=== PATIENT | female | born 1945 | race Caucasian/White ===

== ENCOUNTER 2016-07-26 09:57 | Inpatient (IN) | payer OTHER ==
[2016-07-26] MEDS ORDERED: ACETAMINOPHEN 1000 MG/100 ML VIAL (NON FORMULARY) IVPB ONE (10:43)
--- NOTE | 2016-07-26 10:43 | PDOC ---
History of Present Illness - General History Source: Patient Exam Limitations: No Limitations - History of Present Illness Initial Comments: 07/26/16 11:23 The patient is a 70 year old female BIBA, with a significant past medical history of R forearm melanoma s/p graft placement, COPD, Dementia, GERD, Chronic constipation, CVA (2006), Lung[place] CA (2006), Breast CA (1998 & 2000), Depression, chronic constipation who presents to the emergency department with AMS. The patient reports fever and chills for the past 3 days. She denies chest pain, headache or dizziness. She denies nausea, vomit, diarrhea or constipation. She denies dysuria, frequency, urgency or hematuria. Allergies: amoxicillin trihydrate, potassium clavulanate, adhesive tape Past surgical history: Colon resection, Appendectomy, cholecystectomy, R partial lobectomy Social history: Former smoker PCP: Dr. Blandon <Laura Berry - Last Filed: 07/26/16 11:25> <Valeria Mtz - Last Filed: 07/26/16 17:04> - General Chief Complaint: Altered Mental Status Stated Complaint: FEVER Time Seen by Provider: 07/26/16 10:23 Past History <Laura Berry - Last Filed: 07/26/16 11:25> - Past Medical History Anemia: No Asthma: No Cancer: Yes (Lung 2006,Right Breast 1998 & 2000) Cardiac Disorders: Yes (Murmur,Cardiac Arythmia) CVA: Yes (2006) COPD: Yes CHF: No Dementia: No Diabetes: No GI Disorders: Yes (GERD) Disorders: No HTN: No Hypercholesterolemia: No Liver Disease: No Seizures: No Thyroid Disease: No - Surgical History Abdominal Surgery: Yes (Colon Resection) Appendectomy: Yes Cardiac Surgery: No Cholecystectomy: Yes Lung Surgery: Yes (Right. partial lobectomy) Neurologic Surgery: No Orthopedic Surgery: No - Psycho/Social/Smoking Cessation Hx Anxiety: Yes Suicidal Ideation: No Smoking Status: No Smoking History: Former smoker Have you smoked in the past 12 months: No Number of Cigarettes Smoked Daily: 0 If you are a former smoker, when did you quit?: 2011 Hx Alcohol Use: No Drug/Substance Use Hx: No Substance Use Type: None Hx Substance Use Treatment: No <Valeria Mtz - Last Filed: 07/26/16 17:04> - Past Medical History Allergies/Adverse Reactions: Allergies Allergy/AdvReac Type Severity Reaction Status Date / Time amoxicillin trihydrate Allergy Intermediate Rash Verified 07/26/16 11:31 [From Augmentin] potassium clavulanate Allergy Intermediate Rash Verified 07/26/16 11:31 [From Augmentin] adhesive tape Allergy Verified 07/26/16 11:31 Home Medications: Ambulatory Orders Mirtazapine [Remeron] 45 mg PO HS 10/30/11 Citalopram Hydrobromide [Celexa -] 20 mg PO DAILY #0 tablet 04/30/13 Diazepam [Valium] 5 mg PO TID 11/03/14 Divalproex [Depakote -] 750 mg PO HS 11/03/14 Duloxetine HCl [Cymbalta -] 20 mg PO BID 11/03/14 Omeprazole [Prilosec] 20 mg PO DAILY 11/03/14 Quetiapine Fumarate [Seroquel -] 50 mg PO AM 11/03/14 Buspirone HCl [Buspar] 5 mg PO TID 07/26/16 Quetiapine Fumarate [Seroquel] 100 mg PO HS 07/26/16 Rivastigmine Tartrate [Rivastigmine] 3 mg PO ASDIR 07/26/16 Review of Systems - Review of Systems Able to Perform ROS?: Yes Comments:: 07/26/16 11:23 GENERAL/CONSTITUTIONAL: + fever and chills. No weakness. HEAD, EYES, EARS, NOSE AND THROAT: No change in vision. No ear pain or discharge. No sore throat. CARDIOVASCULAR: No chest pain or shortness of breath. RESPIRATORY: No cough, wheezing, or hemoptysis. GASTROINTESTINAL: No nausea, vomiting, diarrhea or constipation. GENITOURINARY: No dysuria, frequency, or change in urination. MUSCULOSKELETAL: No joint or muscle swelling or pain. No neck or back pain. SKIN: No rash NEUROLOGIC: No headache, vertigo, loss of consciousness, or change in strength/ sensation. ENDOCRINE: No increased thirst. No abnormal weight change. HEMATOLOGIC/LYMPHATIC: No anemia, easy bleeding, or history of blood clots. ALLERGIC/IMMUNOLOGIC: No hives or skin allergy. <Laura Berry - Last Filed: 07/26/16 11:25> *Physical Exam - Physical Exam Comments: GENERAL: Awake, alert, confused, in no acute distress. +Mild tachypnea HEAD: No signs of trauma EYES: PERRLA, EOMI, sclera anicteric, conjunctiva clear ENT: Auricles normal inspection, hearing grossly normal, nares patent, oropharynx clear without exudates. Dry mucosa NECK: Normal ROM, supple, no lymphadenopathy, JVD, or masses LUNGS: Mild tachypnea. Dec breath sounds on R side. HEART: Regular rate and rhythm, normal S1 and S2, no murmurs, rubs or gallops ABDOMEN: Soft, nontender, normoactive bowel sounds. No guarding, no rebound. No masses EXTREMITIES: Normal range of motion, no edema. No clubbing or cyanosis. No cords, erythema, or tenderness NEUROLOGICAL: Cranial nerves II through XII grossly intact. Normal speech. Motor and sensation intact. SKIN: Warm, Dry, normal turgor, no rashes or lesions noted. <Valeria Mtz - Last Filed: 07/26/16 17:04> Heart Score/ECG Review #1 07/26/16 11:25 Sinus tachycardia with premature atrial complexes Nonspecific ST and T wave abnormality <Laura Berry - Last Filed: 07/26/16 11:25> ED Treatment Course - LABORATORY CBC & Chemistry Diagram: 07/26/16 10:45 07/26/16 10:45 <Laura Berry - Last Filed: 07/26/16 11:25> - LABORATORY CBC & Chemistry Diagram: 07/26/16 10:45 07/26/16 10:45 - RADIOLOGY Radiology Studies Ordered: Category Date Time Status CHEST X-RAY PORTABLE* [RAD] Stat Radiology 07/26/16 10:28 Ordered <Valeria Mtz - Last Filed: 07/26/16 17:04> Medical Decision Making - Medical Decision Making 07/26/16 11:01 Chest Xray Impression. No evidence of CHF pneumothorax, pulmonary consolidation. Reported By: Ruddy Kovacs MD 07/26/16 1100 <Laura Berry - Last Filed: 07/26/16 11:25> - Critical Care Time Total Critical Care Time (minutes): 35 Critical Care Statement: The care of this patient involved high complexity decision making to prevent further life threatening deterioration of the patient 's condition and/or to evalute & treat vital organ system(s) failure or risk of failure. - Medical Decision Making Pt presented with fever, AMS, stating she thought she was trembling from a panic attack. On exam she was febrile, hypotensive, altered. Also noted to be tachypneic. She has multiple medical comorbidities including more than one type of cancer, high risk for sepsis. She was treated with vanco and aztreonam due to penicillin allergy, cultures were sent, pending. She initially appeared critically ill, but with IV fluid resuscitation she improved, BP stabilized, and she was instead admitted to tele floor. D/w Dr. Rodriguez, Dr. Mehta, and hospitalist. <Valeria Mtz - Last Filed: 07/26/16 17:04> *DC/Admit/Observation/Transfer <Laura Berry - Last Filed: 07/26/16 11:25> - Discharge Dispostion Admit: Yes <Valeria Mtz - Last Filed: 07/26/16 17:04> Diagnosis at time of Disposition: Sepsis, Fever, Shortness of breath, Acute renal failure Rhabdomyolysis Qualifiers: Rhabdomyolysis type: non-traumatic Qualified Code(s): M62.82 - Rhabdomyolysis - Discharge Dispostion Condition at time of disposition: Guarded - Referrals
[2016-07-26] MEDS ORDERED: ACETAMINOPHEN INJECTION 100 ML IVPB ONE (10:58)
[2016-07-26 11:11] LABS: BASOPHIL 0.5 % (0-2.0); MCH 30.5 pg (25.7-33.7); MCHC 33.5 g/dl (32.0-36.0); MEAN CELL VOLUME 91.1 fl (80-96); MEAN PLT VOLUME 8.5 fl (7.5-11.1); NEUTROPHILS 81.8 % (42.8-82.8); PLATELET COUNT 291 K/MM3 (134-434); RDW 14.9 % (11.6-15.6); WHITE BLOOD COUNT 19.9 K/mm3 (4.0-10.0)
[2016-07-26 11:18] LABS: VENOUS BLOOD GAS HCO3 25.8 meq/L (19-25)
[2016-07-26 11:23] LABS: VENOUS PH 7.42 (7.32-7.42)
[2016-07-26 11:24] LABS: INR 1.2 (0.82-1.09); PROTHROMBIN TIME (PATIENT) 13.2 SEC (9.98-11.88)
[2016-07-26 11:27] LABS: ACTIVATED PTT 32.5 SECONDS (26.9-34.4)
[2016-07-26 11:35] LABS: ALBUMIN 3.7 g/dl (3.4-5.0); ANION GAP 12 (8-16); BILIRUBIN,TOTAL 0.8 mg/dL (0.2-1.0); CALCIUM 9.3 mg/dL (8.5-10.1); CO2 27 mmol/L (21-32); CREATININE 2.2 mg/dL (0.55-1.02); GLUCOSE,RANDOM 122 mg/dL (74-106); SGOT/AST 51 U/L (15-37); SGPT/ALT 27 U/L (12-78)
[2016-07-26 11:48] LABS: ALK PHOS 73 U/L (45-117); TOT PROT 8.6 g/dl (6.4-8.2); TROPONIN I 0.23 ng/ml (0.00-0.05)
[2016-07-26] MEDS ORDERED: SODIUM CHLORIDE 1,000 ML IV STA ×5 (12:21→15:49)
[2016-07-26] MEDS ORDERED: VANCOMYCIN 1,000 MG in DEXTROSE 5%-WATER - 250 ML IVPB ONE (12:24)
[2016-07-26 12:25] VITALS: BMI 28.1
[2016-07-26] MEDS ORDERED: AZTREONAM 1 GM in DEXTROSE 5%-WATER - 50 ML IVPB ONE (12:26)
[2016-07-26 12:39] LABS: COCKROFT - GAULT 31.1015
[2016-07-26] MEDS ORDERED: VANCOMYCIN 1 GRAM (PRE-DOCKED) 250 ML IVPB ONE (12:50)
--- NOTE | 2016-07-26 13:06 | EKG ---
Test Reason : Blood Pressure : / mmHG Vent. Rate : 138 BPM Atrial Rate : 138 BPM P-R Int : 140 ms QRS Dur : 058 ms QT Int : 356 ms P-R-T Axes : 068 051 073 degrees QTc Int : 539 ms SINUS TACHYCARDIA WITH PREMATURE ATRIAL COMPLEXES NONSPECIFIC ST AND T WAVE ABNORMALITY ABNORMAL ECG WHEN COMPARED WITH ECG OF 12-NOV-2014 10:09, PREMATURE ATRIAL COMPLEXES ARE NOW PRESENT VENT. RATE HAS INCREASED BY [address] NOW DEPRESSED IN INFERIOR LEADS ST NOW DEPRESSED IN ANTEROLATERAL LEADS NONSPECIFIC T WAVE ABNORMALITY NOW EVIDENT IN LATERAL LEADS Confirmed by ALEC HANSON MD ([id number]) on 07/26/2016 1:06:26 PM Referred By: Confirmed By:ALEC HANSON MD
--- NOTE | 2016-07-26 14:17 | CONSULT ---
Consult Consult Specialty:: PULMONRAY/CCM Referred by:: Dr. Mtz Reason for Consultation:: sepsis - History of Present Illness Chief Complaint: fever History of Present Illness: 70yo female with h/o COPD, constipation, h/o breast ca s/p resection/RT, Lung cancer s/p resection, h/o CVA, dementia who was admitted with altered mental status and fevers. She reports a fever x 2 days as well as some diarrhea although her last bowel movement was normal. Denies shortness of breath, cough or wheezing. No nausea or vomiting. No dysuria, hematuria or increased frequency. She does report history of UTIs. She lives alone with a home health aide, she is ambulatory, able to feed and dress herself. Denies any sick contacts or recent travel. 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 Cardio/Vascular: Yes: Other (cardiac arythmis COPD multiple basal and squamous cell carcinoma Bipolar disorder Right lung cancer 1996 right breast camcer 1998) Pulmonary: Yes: Cancer, COPD - Past Surgical History Past Surgical History: Yes: Appendectomy (child), Cholecystectomy ( salpingectomy due to ectopic ) - Alcohol/Substance Use Hx Alcohol Use: No - Smoking History Smoking history: Former smoker Have you smoked in the past 12 months: No Aproximately how many cigarettes per day: 0 If you are a former smoker, when did you quit?: 2011 - Social History ADL: Independent History of Recent Travel: No Home Medications - Allergies Allergies/Adverse Reactions: Allergies Allergy/AdvReac Type Severity Reaction Status Date / Time amoxicillin trihydrate Allergy Intermediate Rash Verified 07/26/16 11:31 [From Augmentin] potassium clavulanate Allergy Intermediate Rash Verified 07/26/16 11:31 [From Augmentin] adhesive tape Allergy Verified 07/26/16 11:31 - Home Medications Home Medications: Ambulatory Orders Mirtazapine [Remeron] 45 mg PO HS 10/30/11 Tiotropium Waite [Spiriva] 18 mcg IH DAILY 10/30/11 Benztropine Mesylate [Cogentin -] 1 mg PO HS #0 tablet 04/30/13 Buspirone HCl [Buspar] 5 mg PO DAILY #0 tablet 04/30/13 Citalopram Hydrobromide [Celexa -] 20 mg PO DAILY #0 tablet 04/30/13 Albuterol Sulfate Inhaler - [Ventolin HFA Inhaler -] 2 inh PO DAILY 11/03/14 Diazepam [Valium] 5 mg PO TID 11/03/14 Divalproex [Depakote -] 750 mg PO HS 11/03/14 Duloxetine HCl [Cymbalta -] 20 mg PO DAILY 11/03/14 Omeprazole [Prilosec] 20 mg PO DAILY 11/03/14 Quetiapine Fumarate [Seroquel -] 50 mg PO HS 11/03/14 Oxycodone HCl/Acetaminophen [Percocet 5-325 mg Tablet] 0.5 tab PO Q6H 11/11/14 Budesonide/Formeterol Fumarate [SYMBICORT 160/4.5mcg -] 1 puff IH BID #1 inhaler 11/17/14 Polyethylene Glycol 3350 [Miralax 119 gm Btl -] 17 gm PO DAILY bottle 11/17/14 Prednisone 10 mg PO ASDIR #24 tablet 11/17/14 Family Disease History - Family Disease History Family Disease History: CA: Father (CRC at 41), Sister (melanoma at 70) Review of Systems - Review of Systems Constitutional: reports: Fever, Weakness Eyes: denies: Recent Change in Vision HENT: denies: Nasal Congestion, Throat Pain Neck: denies: Stiffness, Tenderness Cardiovascular: denies: Chest Pain, Edema, Palpitations, Shortness of Breath Respiratory: denies: Cough, Hemoptysis, SOB, Wheezing Gastrointestinal: reports: Diarrhea. denies: Abdominal Pain, Nausea, Vomiting Genitourinary: denies: Dysuria, Hematuria Neurological: denies: Dizziness, Headache Endocrine: denies: Unexplained Weight Loss Physical Exam Vital Signs: Vital Signs Temperature 98.3 F 07/26/16 11:45 Pulse Rate 104 H 07/26/16 11:25 Respiratory Rate 22 07/26/16 11:25 Blood Pressure 104/59 07/26/16 11:25 O2 Sat by Pulse Oximetry (%) 96 07/26/16 11:25 Constitutional: Yes: Mild Distress (mildly tachypneic at rest) Eyes: Yes: Conjunctiva Clear, EOM Intact HENT: Yes: Atraumatic, Normocephalic Neck: Yes: Supple, Trachea Midline Cardiovascular: Yes: Regular Rate and Rhythm Respiratory: Yes: Diminished (distant breath sounds). No: Wheezes Gastrointestinal: Yes: Normal Bowel Sounds, Soft, Abdomen, Obese. No: Tenderness Edema: No Neurological: Yes: Alert, Oriented Labs: CBC, BMP 07/26/16 10:45 07/26/16 10:45 Imaging - Results Chest X-ray: Report Reviewed, Image Reviewed (no infiltrates) Problem List - Problems (1) Fever Code(s): R50.9 - FEVER, UNSPECIFIED (2) Sepsis Code(s): A41.9 - SEPSIS, UNSPECIFIED ORGANISM (3) Lactic acidosis Code(s): E87.2 - ACIDOSIS (4) COPD (chronic obstructive pulmonary disease) Code(s): J44.9 - CHRONIC OBSTRUCTIVE PULMONARY DISEASE, UNSPECIFIED (5) Rhabdomyolysis Code(s): M62.82 - RHABDOMYOLYSIS Assessment/Plan Fever/Sepsis without obvious source Lactic Acidosis Rhabdomyolysis Acute Kidney Injury +Troponins - r/o Demand Ischemia h/o Lung/Breast Ca/Melanoma - IV antibiotics - f/u blood cultures, send urinalysis, urine cultures, urinary antigens - consider CT A/P if no urinary source of infection - IVF - monitor urine output, creatinine - trend lactate, CPK - cycle cardiac enzymes - echocardiogram if troponins continue to rise - O2 as needed to keep SpO2 >90% - DVT prophylaxis - does not require ICU monitoring at this time, would monitor on telemetry - will follow or please call if any change in clinical status Thank you for this consult Elmo Rodriguez MD
[2016-07-26 14:44] LABS: URINE APPEARANCE CLOUDY; URINE BILIRUBIN NEGATIVE (NEGATIVE); URINE COLOR AMBER; URINE GLUCOSE (UA) NEGATIVE (NEGATIVE); URINE KETONE TRACE (NEGATIVE); URINE NITRITE NEGATIVE (NEGATIVE); URINE UROBILINOGEN NEGATIVE E.U./dl (0.2-1.0)
[2016-07-26 14:48] LABS: URINE BLOOD 2+ (NEGATIVE); URINE LEUK ESTERASE 2+ (NEGATIVE); URINE PROTEIN 2+ (NEGATIVE)
[2016-07-26 15:06] LABS: URINE HYALINE CAST 19 /lpf; URINE MUCUS MANY; URINE RBC 10 /hpf (0-3); URINE WBC 284 /hpf (3-5)
[2016-07-26] MEDS ORDERED: ACETAMINOPHEN 325 MG TABLET (FP) PO PRN (15:49)
--- NOTE | 2016-07-26 15:57 | HP ---
CHIEF COMPLAINT: Fever and Stomach pain PCP: Dr. Miller Blandon HISTORY OF PRESENT ILLNESS: Patient is a 70 year old female with a PMHx of COPD, Bipolar disorder, Anxiety/ Depression, breast cancer s/p surgery/radiation/tamoxifen, lung cancer with partial lobectomy, chronic constipation, R arm melanoma s/p wide excision lymphoscintogram who complains of suprapubic pain and that initially began 3 days ago when she as at home in her usual state of health. The pain was described as a nonradiating pressure like pain that only occurs when she uses the bathroom and lasts for an hour. Patient's sister reports patient had a fever >103.0 F, which prompted this hospital visit. Patient has a history of UTI 's in the past that was treated with antibiotics and experienced similar discomfort in the past. Otherwise, patient denies nausea, vomiting, chest pain, shortness of breath, dysuria, hematuria, frequency, urgency. ER course was notable for: (1) Sepsis Protocol (2) Vancomycin and Aztreonam, IV fluids given (3) CXR and EKG Recent Travel: Denies PAST MEDICAL HISTORY: COPD, Bipolar disorder, Anxiety/Depression, breast cancer s/p surgery/radiation/tamoxifen, lung cancer with partial lobectomy, chronic constipation, R arm melanoma s/p wide excision lymphoscintogram PAST SURGICAL HISTORY: Appendectomy, Cholecystectomy, Partial lobectomy, lymphoscintogram Social History: Smoking: Former smoker, quit 4 years ago. Started smoking at age 15 with 1.5 PPD Alcohol: Denies Drugs: Denies Family History: Non-contributory Allergies: amoxicillin trihydrate [From Augmentin] Allergy (Intermediate, Verified 07/26/16 11:31) Rash potassium clavulanate [From Augmentin] Allergy (Intermediate, Verified 07/26/16 11:31) Rash adhesive tape Allergy (Verified 07/26/16 11:31) HOME MEDICATIONS: Home Medications Medication Instructions Recorded Mirtazapine [Remeron] 45 mg PO HS 10/30/11 Citalopram Hydrobromide [Celexa -] 20 mg PO DAILY #0 tablet 04/30/13 Diazepam [Valium] 5 mg PO TID 11/03/14 Divalproex [Depakote -] 750 mg PO HS 11/03/14 Duloxetine HCl [Cymbalta -] 20 mg PO BID 11/03/14 Omeprazole [Prilosec] 20 mg PO DAILY 11/03/14 Quetiapine Fumarate [Seroquel -] 50 mg PO AM 11/03/14 Buspirone HCl [Buspar] 5 mg PO TID 07/26/16 Quetiapine Fumarate [Seroquel] 100 mg PO HS 07/26/16 Rivastigmine Tartrate 3 mg PO ASDIR 07/26/16 [Rivastigmine] REVIEW OF SYSTEMS CONSTITUTIONAL: fever Absent: chills, diaphoresis, generalized weakness, malaise, loss of appetite, weight change HEENT: Absent: rhinorrhea, nasal congestion, throat pain, throat swelling, difficulty swallowing, mouth swelling, ear pain, eye pain, visual changes CARDIOVASCULAR: Absent: chest pain, syncope, palpitations, irregular heart rate, lightheadedness , peripheral edema RESPIRATORY: Absent: cough, shortness of breath, dyspnea with exertion, orthopnea, wheezing, stridor, hemoptysis GASTROINTESTINAL: abdominal pain, constipation Absent: abdominal distension, nausea, vomiting, diarrhea, melena, hematochezia GENITOURINARY: Absent: dysuria, frequency, urgency, hesitancy, hematuria, flank pain, genital pain MUSCULOSKELETAL: Absent: myalgia, arthralgia, joint swelling, back pain, neck pain SKIN: Absent: rash, itching, pallor HEMATOLOGIC/IMMUNOLOGIC: Absent: easy bleeding, easy bruising, lymphadenopathy, frequent infections ENDOCRINE: Absent: unexplained weight gain, unexplained weight loss, heat intolerance, cold intolerance NEUROLOGIC: headache Absent: focal weakness or paresthesias, dizziness, unsteady gait, seizure, mental status changes, bladder or bowel incontinence PSYCHIATRIC: anxiety, depression Absent: suicidal or homicidal ideation, hallucinations. PHYSICAL EXAMINATION Vital Signs - 24 hr 07/26/16 15:25 Temperature 98.2 F Pulse Rate [ 66 Apical] Blood Pressure 94/47 [Left Arm] O2 Sat by Pulse 99 Oximetry (%) GENERAL: Awake, alert, and fully oriented, in no acute distress. HEAD: Normal with no signs of trauma. EYES: Sclera anicteric, conjunctiva clear. EARS, NOSE, THROAT: Oropharynx clear without exudates. Dry mucous membranes. NECK: Supple without lymphadenopathy, JVD. LUNGS: Breath sounds equal, clear to auscultation bilaterally. No wheezes, and no crackles. No accessory muscle use. HEART: Regular rate and rhythm, normal S1 and S2 without murmur, rub or gallop. ABDOMEN: Soft, Obese, moderate tenderness upon palpation of suprapubic region with distention, normoactive bowel sounds. MUSCULOSKELETAL: No CVA tenderness. UPPER EXTREMITIES: No peripheral edema. LOWER EXTREMITIES: No peripheral edema. NEUROLOGICAL: Normal speech. No facial droop PSYCHIATRIC: Flat affect. SKIN: Warm, dry, normal turgor, no rashes or lesions noted, normal capillary refill. Laboratory Results - last 24 hr 07/26/16 07/26/16 07/26/16 10:28 10:45 10:45 WBC 19.9 H RBC 5.13 D Hgb 15.7 H D Hct 46.7 H D MCV 91.1 MCHC 33.5 RDW 14.9 Plt Count 291 D MPV 8.5 D Neutrophils % 81.8 Lymphocytes % 10.1 Monocytes % 7.6 Eosinophils % 0.0 Basophils % 0.5 D INR 1.20 H PTT (Actin FS) 32.5 VBG pH POC VBG pCO2 POC VBG pO2 Mixed VBG HCO3 Sodium Potassium Chloride Carbon Dioxide Anion Gap BUN Creatinine Creat Clearance w eGFR Random Glucose Lactic Acid Calcium Total Bilirubin AST ALT Alkaline Phosphatase Creatine Kinase CK-MB (CK-2) Troponin I Total Protein Albumin Urine Color Melina Urine Appearance Cloudy Urine pH 5.0 Urine Protein 2+ H Urine Glucose (UA) Negative Urine Ketones Trace H Urine Blood 2+ H Urine Nitrite Negative Urine Bilirubin Negative Urine Urobilinogen Negative Ur Leukocyte Esterase 2+ H Urine RBC 10 Urine WBC 284 Ur Epithelial Cells Rare Hyaline Casts 19 Urine Mucus Many Blood Type Antibody Screen 07/26/16 07/26/16 07/26/16 10:45 10:45 10:45 WBC RBC Hgb Hct MCV MCHC RDW Plt Count MPV Neutrophils % Lymphocytes % Monocytes % Eosinophils % Basophils % INR PTT (Actin FS) VBG pH POC VBG pCO2 POC VBG pO2 Mixed VBG HCO3 Sodium 148 H Potassium 4.1 D Chloride 109 H D Carbon Dioxide 27 Anion Gap 12 BUN 39 H D Creatinine 2.2 H D Creat Clearance w eGFR 22.13 Random Glucose 122 H Lactic Acid 2.7 H* Calcium 9.3 Total Bilirubin 0.8 D AST 51 H D ALT 27 D Alkaline Phosphatase 73 D Creatine Kinase 2135 H D CK-MB (CK-2) < 1.000 Troponin I 0.23 H Total Protein 8.6 H D Albumin 3.7 D Urine Color Urine Appearance Urine pH Urine Protein Urine Glucose (UA) Urine Ketones Urine Blood Urine Nitrite Urine Bilirubin Urine Urobilinogen Ur Leukocyte Esterase Urine RBC Urine WBC Ur Epithelial Cells Hyaline Casts Urine Mucus Blood Type B POSITIVE Antibody Screen Negative ASSESSMENT/PLAN: Patient is a 70 year old female with a PMHx of COPD, Bipolar disorder, Anxiety/ Depression, breast cancer s/p surgery/radiation/tamoxifen, lung cancer with partial lobectomy, R arm melanoma s/p wide excision lymphoscintogram who presented for fever and abdominal pain. Patient was found to have Severe Sepsis with UTI, UTI, rhabdomyolysis. Patient admitted for further monitoring and management. Severe Sepsis Secondary to UTI- Acute -Tacycardia, tahcypnea, fever, Leuokocytosis, hypotension, lactic acidosis on initial presentation. -Initial Lactic acid 2.7. Now 1.1 -U/A revealed UTI with 2+ LE -3 Liters of IV NS given in ED with appropriate response. Another 2 Liters of IV NS ordered then begin maintenance IV NS @100mls/hr. -Aztreonam 1gm and Vancomycin 1gm given. Patient has allergy to pencillin and QTc prolongation -Blood cultures and urine cultures sent -Tylenol 650mg Q6H PRN -ID consult placed Acute Kidney Injury- Acute -Likely secondary to dehydration and sepsis -Creatinine 2.2 (Last one 1.1 in 2014) -Continue IV NS @100mls/hr -Continue to monitor BMP Rhabdomyolysis-Acute -Likely secondary to Psychiatric medications -CPK 2135 -Continue IV NS @100mls/hr -Will call Psychiatrist for alternative medications -Monitor CPK Elevated Troponins -Likely secondary to demand ischemia from GABBI and Sepsis -Initial level 0.23 -Repeat troponin tonight @1700. -Cardiology consult appreciated. Believe no cardiac origin -ECHO ordered Prolonged QTc -Likely secondary to Psychiatric medications -Will Avoid medications that cause increased QTc -Will call Psychiatrist for medication alternatives and last EKG reading Polycythemia -Secondary to dehydration and Sepsis -Will continue to monitor CBC COPD-Controlled -On no medication but will call pharmacy to confirm -Continue 02 PRN Anxiety/Depression/Bipolar -Will only continue Depakote 750mg HS and Seroquel 100mg HS and 50mg AM -Will hold all antipsychotics that have a side effect of prolonged QTc -Will call Psychiatrist on alternative medications History of Breast Cancer s/p surgery/radiation/tamoxifen, lung cancer with partial lobectomy -Currently on no therapy or treatment. F/E/N -5 liters IV NS given. Maintenance of IV NS @100mls/hr -Electrolytes wnl -Regular diet Prophylaxis -Heparin 5000 units sq BID Disposition -Responded well to fluid resuscitation. Will continue to monitor until resolution of sepsis Visit type - Emergency Visit Emergency Visit: Yes ED Registration Date: 07/26/16 Care time: The patient presented to the Emergency Department on the above date and was hospitalized for further evaluation of their emergent condition. - New Patient This patient is new to me today: Yes Date on this admission: 07/27/16 - Critical Care Critical Care patient: No
--- NOTE | 2016-07-26 16:27 | CON.CARD ---
Consult Consult Specialty:: Cardiology Referred by:: Dr Mtz Reason for Consultation:: elevated troponin - History of Present Illness Chief Complaint: changing mental status. History of Present Illness: 70f COPD, constipation, h/o breast ca s/p resection/RT, Lung cancer s/p resection, h/o CVA, dementia who was admitted with altered mental status and fevers. Found in ER with severe elevation of CPK and GABBI. Also elevated troponin but no chest pain or sob. Denies cardiac complaints. 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: Yes: CVA Cardio/Vascular: Yes: Other (cardiac arythmis COPD multiple basal and squamous cell carcinoma Bipolar disorder Right lung cancer 1996 right breast camcer 1998) Pulmonary: Yes: Cancer, COPD - Past Surgical History Past Surgical History: Yes: Appendectomy (child), Cholecystectomy ( salpingectomy due to ectopic ) - Alcohol/Substance Use Hx Alcohol Use: No - Smoking History Smoking history: Former smoker Have you smoked in the past 12 months: No Aproximately how many cigarettes per day: 0 If you are a former smoker, when did you quit?: 2012 - Social History ADL: Independent History of Recent Travel: No Home Medications - Allergies Allergies/Adverse Reactions: Allergies Allergy/AdvReac Type Severity Reaction Status Date / Time amoxicillin trihydrate Allergy Intermediate Rash Verified 07/26/16 11:31 [From Augmentin] potassium clavulanate Allergy Intermediate Rash Verified 07/26/16 11:31 [From Augmentin] adhesive tape Allergy Verified 07/26/16 11:31 - Home Medications Home Medications: Ambulatory Orders Mirtazapine [Remeron] 45 mg PO HS 10/30/11 Citalopram Hydrobromide [Celexa -] 20 mg PO DAILY #0 tablet 04/30/13 Diazepam [Valium] 5 mg PO TID 11/03/14 Divalproex [Depakote -] 750 mg PO HS 11/03/14 Duloxetine HCl [Cymbalta -] 20 mg PO BID 11/03/14 Omeprazole [Prilosec] 20 mg PO DAILY 11/03/14 Quetiapine Fumarate [Seroquel -] 50 mg PO AM 11/03/14 Buspirone HCl [Buspar] 5 mg PO TID 07/26/16 Quetiapine Fumarate [Seroquel] 100 mg PO HS 07/26/16 Rivastigmine Tartrate [Rivastigmine] 3 mg PO ASDIR 07/26/16 Family Disease History - Family Disease History Family Disease History: CA: Father (CRC at 41), Sister (melanoma at 70) Review of Systems Unable to obtain ROS, reason: delerium Vital Signs: Vital Signs Temperature 98.2 F 07/26/16 15:25 Pulse Rate 66 07/26/16 15:25 Respiratory Rate 22 07/26/16 11:25 Blood Pressure 94/47 07/26/16 15:25 O2 Sat by Pulse Oximetry (%) 99 07/26/16 15:25 Constitutional: Yes: No Distress, Calm Eyes: Yes: Conjunctiva Clear HENT: Yes: Atraumatic, Normocephalic Neck: Yes: Supple, Trachea Midline, Thyromegaly Gastrointestinal: Yes: Normal Bowel Sounds, Soft Cardiovascular: Yes: Regular Rate and Rhythm JVD: No Carotid Bruit: No PMI: Non-Displaced Heart Sounds: Yes: S1, S2 Edema: No Peripheral Pulses WNL: Yes - Other Data Labs, Other Data: INR, PTT INR 1.20 (0.82-1.09) H 07/26/16 10:45 Imaging - Results X-ray: Report Reviewed (WILLIS) EKG: Report Reviewed (stach, apcs, nssttw changes.) Problem List - Problems (1) Rhabdomyolysis Assessment/Plan: The elevated troponin is most likely non ischemic in pattern. Trend troponin and CPK. Renal evaluation. [facility] eval read and agree. Echocardiogram to assess LV function. Hold as many medications as possible, especially antipsychotics as some can contribute to this, but the underlying etiology is likely infection. No plans for ischemia workup. continue telemetry x 24 hours. Code(s): M62.82 - RHABDOMYOLYSIS Qualifiers: Rhabdomyolysis type: non-traumatic Qualified Code(s): M62.82 - Rhabdomyolysis
--- NOTE | 2016-07-26 16:58 | PN ---
Teaching Attending Note Name of Resident: Ewelina Salcido ATTENDING PHYSICIAN STATEMENT I saw and evaluated the patient. I reviewed the resident's note and discussed the case with the resident. I agree with the resident's findings and plan as documented. pt is a poor historian SUBJECTIVE:69yo F c/o fever and diaphoresis for a few days. assoc with urinary frequency. states no recent changes to medications. Denies CP, cough, SOB, N/V/C /D or hematuria. denies recent fall or trauma OBJECTIVE: Last Vital Signs Temp Pulse Resp BP Pulse Ox 98.2 F 66 22 94/47 99 07/26/16 15:25 07/26/16 15:25 07/26/16 11:25 07/26/16 15:25 07/26/16 15:25 General NAD, flat affect, monotone CV S1 S2 RRR no murmur/rub/gallop no chest wall tenderness Lungs CTA B/L no wheezing/rales/rhonchi abdomen soft suprapubic tenderness +BS. obese + R CVA tenderness Extremities no pedal edema ASSESSMENT AND PLAN: 70yo F with PMH melanoma, COPD, dementia, CVA, lung ca, breast ca s/p resection and Rtx, depression presented to the ER with AMS assoc with fever and chills 1. Severe sepsis due to UTI and possible pyleonephritis- Tele admission. was hypotensive on presentation but responding to IVF challenge. lactic acidosis resolved. received 2L NS in ER will give additional 2 L NS and then start @ 100cc/H. received aztreonam and vanco in the ER. will consult ID for aztreonam approval. has PCN allergy and unable to start levaquin due to prolonged Qtc. f/ u Cx. 2. GABBI- due to sepsis. avoid nephrotoxic agents. will trend for now. on IVF. avoid nephrotoxic agents. call PMD in AM for baseline Cr. 3, Rhabdomyolysis- CK 2135. possible due to psychiatric medications. monitor other electrolytes. IVF. monitor 4. Tropnin leak- likely due to sepsis. Trop 0.23 will trend. if trends up will consider echo. cardio consulted 5. polycythemia- likely dehydration. repeat levels in AM 6. Prolonged Qtc- 540 here. call psychiatrist for last reading. (last EKG here from 2014). will d/w him about possibility of titrating down medications and/or removal. will cont seroquel and depakote for now. hold other medications 7. malignancy- no active treatment at this time 8. DVT ppx- hep sq
[2016-07-26] MEDS ORDERED: QUEtiapine FUMARATE 50 MG TABLET ONE (23:24)
[2016-07-26] MEDS: HEPARIN NA (PORCINE) 5,000 UNITS/ML 1ML VIAL SQ SCH (23:26)
[2016-07-26] MEDS: QUEtiapine FUMARATE 100 MG TABLET (FP) PO SCH (23:27)
[2016-07-26] MEDS: AZTREONAM 1 GM in DEXTROSE 5%-WATER - 50 ML IVPB SCH (23:51)
[2016-07-26] MEDS: DIVALPROEX SODIUM 250 MG TABLET E.C. (FP) PO SCH (23:51)
[2016-07-26] MEDS: SODIUM CHLORIDE 1,000 ML IV SCH (23:51)
[2016-07-27] MEDS: QUEtiapine FUMARATE 50 MG TABLET PO SCH (06:38)
[2016-07-27 08:14] LABS: MCH 30.9 pg (25.7-33.7); MEAN CELL VOLUME 93.5 fl (80-96); MEAN PLT VOLUME 8.6 fl (7.5-11.1); PLATELET COUNT 137 K/MM3 (134-434); RDW 14.8 % (11.6-15.6); WHITE BLOOD COUNT 11.7 K/mm3 (4.0-10.0)
[2016-07-27 09:24] LABS: CALCIUM 7.5 mg/dL (8.5-10.1); COCKROFT - GAULT 62.2115; CREATININE 1.1 mg/dL (0.55-1.02)
[2016-07-27] MEDS ORDERED: FUROSEMIDE 40 MG/4 ML INJECTABLE VIAL ONE (10:06)
[2016-07-27] MEDS: AZTREONAM 1 GM in DEXTROSE 5%-WATER - 50 ML IVPB SCH (10:48)
[2016-07-27] MEDS: HEPARIN NA (PORCINE) 5,000 UNITS/ML 1ML VIAL SQ SCH ×2 (10:48→22:03)
--- NOTE | 2016-07-27 12:15 | PN ---
Progress Note (short form) - Note Progress Note: Drowsy but in NAD. No CP or SOB. No documented acute events overnight. Intake & Output 07/24/16 07/25/16 07/26/16 07/27/16 23:59 23:59 23:59 23:59 Intake Total 150 1000 Balance 150 1000 Weight 180 lb Last Vital Signs Temp Pulse Resp BP Pulse Ox 98.6 F 96 H 20 116/74 96 07/27/16 07:00 07/27/16 07:00 07/27/16 07:00 07/27/16 07:00 07/26/16 22:00 Active Medications Acetaminophen (Tylenol -) 650 mg PO Q6H PRN PRN Reason: FEVER OR PAIN Diazepam (Valium -) 5 mg PO TID [facility] Divalproex Sodium (Depakote -) 750 mg PO HS [facility] Last Admin: 07/26/16 23:51 Dose: 750 mg Heparin Sodium (Porcine) (Heparin -) 5,000 unit SQ BID [facility] Last Admin: 07/27/16 10:48 Dose: 5,000 unit Aztreonam 1 gm/ Dextrose 50 mls @ 100 mls/hr IVPB BID [facility] PRN Reason: Protocol Last Admin: 07/27/16 10:48 Dose: 100 mls/hr Sodium Chloride (Normal Saline -) 1,000 mls @ 100 mls/hr IV ASDIR [facility] Last Admin: 07/26/16 23:51 Dose: 100 mls/hr Quetiapine Fumarate (Seroquel -) 100 mg PO HS [facility] Last Admin: 07/26/16 23:27 Dose: 100 mg Quetiapine Fumarate (Seroquel -) 50 mg PO AM [facility] Last Admin: 07/27/16 06:38 Dose: 50 mg Constitutional: Yes: NAD Eyes: Yes: Conjunctiva Clear, EOM Intact HENT: Yes: Atraumatic, Normocephalic Neck: Yes: Supple, Trachea Midline Cardiovascular: Yes: Regular Rate and Rhythm Respiratory: Yes: Diminished at the bases, No: Wheezes Gastrointestinal: Yes: Normal Bowel Sounds, Soft, Abdomen, Obese. No: Tenderness Edema: No Neurological: Yes: Drowsy, Non-focal Labs: Laboratory Results - last 24 hr 07/26/16 07/26/16 07/26/16 10:28 10:45 10:45 WBC RBC Hgb Hct MCV MCHC RDW Plt Count MPV VBG pH POC VBG pCO2 POC VBG pO2 Mixed VBG HCO3 Sodium 148 H Potassium 4.1 D Chloride 109 H D Carbon Dioxide 27 Anion Gap 12 BUN 39 H D Creatinine 2.2 H D Creat Clearance w eGFR 22.13 Random Glucose 122 H Lactic Acid 2.7 H* Calcium 9.3 Total Bilirubin 0.8 D AST 51 H D ALT 27 D Alkaline Phosphatase 73 D Creatine Kinase 2135 H D CK-MB (CK-2) < 1.000 Troponin I 0.23 H Total Protein 8.6 H D Albumin 3.7 D Urine Color Melina Urine Appearance Cloudy Urine pH 5.0 Ur Specific [place] >= 1.030 H Urine Protein 2+ H Urine Glucose (UA) Negative Urine Ketones Trace H Urine Blood 2+ H Urine Nitrite Negative Urine Bilirubin Negative Urine Urobilinogen Negative Ur Leukocyte Esterase 2+ H Urine RBC 10 Urine WBC 284 Ur Epithelial Cells Rare Hyaline Casts 19 Urine Mucus Many Blood Type Antibody Screen 07/26/16 07/26/16 07/26/16 10:45 11:12 14:11 WBC RBC Hgb Hct MCV MCHC RDW Plt Count MPV VBG pH 7.42 POC VBG pCO2 40.8 POC VBG pO2 48.1 H Mixed VBG HCO3 25.8 H Sodium Potassium Chloride Carbon Dioxide Anion Gap BUN Creatinine Creat Clearance w eGFR Random Glucose Lactic Acid 1.1 Calcium Total Bilirubin AST ALT Alkaline Phosphatase Creatine Kinase CK-MB (CK-2) Troponin I Total Protein Albumin Urine Color Urine Appearance Urine pH Ur Specific [place] Urine Protein Urine Glucose (UA) Urine Ketones Urine Blood Urine Nitrite Urine Bilirubin Urine Urobilinogen Ur Leukocyte Esterase Urine RBC Urine WBC Ur Epithelial Cells Hyaline Casts Urine Mucus Blood Type B POSITIVE Antibody Screen Negative 07/26/16 07/27/16 07/27/16 17:48 05:48 05:48 WBC 11.7 H D RBC 3.50 L D Hgb 10.8 D Hct 32.7 D MCV 93.5 MCHC 33.0 RDW 14.8 Plt Count 137 D MPV 8.6 VBG pH POC VBG pCO2 POC VBG pO2 Mixed VBG HCO3 Sodium 149 H Potassium 3.9 Chloride 115 H Carbon Dioxide 26 Anion Gap 8 BUN 40 H Creatinine 1.1 H D Creat Clearance w eGFR Random Glucose 101 Lactic Acid Calcium 7.5 L Total Bilirubin AST ALT Alkaline Phosphatase Creatine Kinase CK-MB (CK-2) Troponin I 0.14 H Total Protein Albumin Urine Color Urine Appearance Urine pH Ur Specific [place] Urine Protein Urine Glucose (UA) Urine Ketones Urine Blood Urine Nitrite Urine Bilirubin Urine Urobilinogen Ur Leukocyte Esterase Urine RBC Urine WBC Ur Epithelial Cells Hyaline Casts Urine Mucus Blood Type Antibody Screen 07/27/16 05:48 WBC RBC Hgb Hct MCV MCHC RDW Plt Count MPV VBG pH POC VBG pCO2 POC VBG pO2 Mixed VBG HCO3 Sodium Potassium Chloride Carbon Dioxide Anion Gap BUN Creatinine Creat Clearance w eGFR Random Glucose Lactic Acid Calcium Total Bilirubin AST ALT Alkaline Phosphatase Creatine Kinase 1262 H D CK-MB (CK-2) 9.732 H Troponin I Total Protein Albumin Urine Color Urine Appearance Urine pH Ur Specific [place] Urine Protein Urine Glucose (UA) Urine Ketones Urine Blood Urine Nitrite Urine Bilirubin Urine Urobilinogen Ur Leukocyte Esterase Urine RBC Urine WBC Ur Epithelial Cells Hyaline Casts Urine Mucus Blood Type Antibody Screen Problem List - Problems (1) Fever Code(s): R50.9 - FEVER, UNSPECIFIED (2) Sepsis Code(s): A41.9 - SEPSIS, UNSPECIFIED ORGANISM (3) Lactic acidosis Code(s): E87.2 - ACIDOSIS (4) COPD (chronic obstructive pulmonary disease) Code(s): J44.9 - CHRONIC OBSTRUCTIVE PULMONARY DISEASE, UNSPECIFIED (5) Rhabdomyolysis Code(s): M62.82 - RHABDOMYOLYSIS Assessment/Plan Fever/Sepsis without obvious source Lactic Acidosis Rhabdomyolysis Acute Kidney Injury +Troponins - r/o Demand Ischemia h/o Lung/Breast Ca/Melanoma - IV antibiotics - IVF - O2 as needed to keep SpO2 >90% - DVT prophylaxis - Caution with multiple standing sedative agents Dr Aaron
--- NOTE | 2016-07-27 12:31 | EKG ---
Test Reason : Blood Pressure : / mmHG Vent. Rate : 090 BPM Atrial Rate : 090 BPM P-R Int : 140 ms QRS Dur : 062 ms QT Int : 354 ms P-R-T Axes : 058 066 054 degrees QTc Int : 433 ms SINUS RHYTHM WITH MARKED SINUS ARRHYTHMIA OTHERWISE NORMAL ECG WHEN COMPARED WITH ECG OF 26-JUL-2016 10:20, PREMATURE ATRIAL COMPLEXES ARE NO LONGER PRESENT VENT. RATE HAS DECREASED BY [address] NO LONGER DEPRESSED IN INFERIOR LEADS ST NO LONGER DEPRESSED IN ANTEROLATERAL LEADS Confirmed by KYAW PEOPLES MD ([id number]) on 07/27/2016 12:30:45 PM Referred By: CJ FLORES Confirmed By:KYAW PEOPLES MD
--- NOTE | 2016-07-27 12:41 | PN ---
Teaching Attending Note Name of Resident: Ewelina Salcido ATTENDING PHYSICIAN STATEMENT I saw and evaluated the patient. I reviewed the resident's note and discussed the case with the resident. I agree with the resident's findings and plan as documented. SUBJECTIVE:symptoms improved. denies CP, SOB,fever, chills, dysuria, urinary frequency or hematuria OBJECTIVE: Last Vital Signs Temp Pulse Resp BP Pulse Ox 98.6 F 96 H 20 116/74 96 07/27/16 07:00 07/27/16 07:00 07/27/16 07:00 07/27/16 07:00 07/26/16 22:00 General NAD, flat affect, monotone CV S1 S2 RRR no murmur/rub/gallop no chest wall tenderness Lungs CTA B/L no wheezing/rales/rhonchi abdomen soft suprapubic tenderness +BS. obese + R CVA tenderness Extremities no pedal edema ASSESSMENT AND PLAN: 70yo F with PMH melanoma, COPD, dementia, CVA, lung ca, breast ca s/p resection and Rtx, depression presented to the ER with AMS assoc with fever and chills 1. Severe sepsis due to UTI and possible pyleonephritis-afebrile. leukocytosis improving. no longer hypotensive and lactic acidosis resolved. on aztreonam day 2. ID on board. f/u Cx. 2. GABBI- due to sepsis. improved. avoid nephrotoxic agents. avoid nephrotoxic agents. call PMD in AM for baseline Cr. 3, Rhabdomyolysis- CK 2135 on admission now trending down possible due to psychiatric medications. monitor other electrolytes. IVF until CK below 1000. monitor 4. Tropnin leak- likely due to sepsis. Trop peaked at 0.23 echo pending, if normal can d/c front desk monitor. cardio consulted 5. polycythemia- likely dehydration. now resolved. 6. Prolonged Qtc- improved on repeat. will call psychiatrist to confirm home meds. concern for being in rhabdo on presentation which it may have contributed to and prolonged Qtc. will cont seroquel and depakote for now. hold other medications 7. malignancy- no active treatment at this time 8. DVT ppx- hep sq
[2016-07-27] MEDS: diazePAM 5 MG TABLET PO SCH ×2 (13:28→22:03)
[2016-07-27] MEDS ORDERED: PANTOPRAZOLE 20 MG TABLET (FP) PO SCH (13:45)
[2016-07-27] MEDS: RANITIDINE HCL 150 MG TABLET (FP) PO SCH (14:19)
--- NOTE | 2016-07-27 15:08 | PN ---
Progress Note, Physician Chief Complaint: no new complaints tele neg History of Present Illness: 70f COPD, constipation, h/o breast ca s/p resection/RT, Lung cancer s/p resection, h/o CVA, dementia who was admitted with altered mental status and fevers. Found in ER with severe elevation of CPK and GABBI. Also elevated troponin but no chest pain or sob. Denies cardiac complaints. Echo 2014 increased EF, min MR/TR Echo done results pending. - Current Medication List Current Medications: Active Medications Acetaminophen (Tylenol -) 650 mg PO Q6H PRN PRN Reason: FEVER OR PAIN Diazepam (Valium -) 5 mg PO TID [facility] Last Admin: 07/27/16 13:28 Dose: 5 mg Divalproex Sodium (Depakote -) 750 mg PO HS [facility] Last Admin: 07/26/16 23:51 Dose: 750 mg Heparin Sodium (Porcine) (Heparin -) 5,000 unit SQ BID [facility] Last Admin: 07/27/16 10:48 Dose: 5,000 unit Aztreonam 1 gm/ Dextrose 50 mls @ 100 mls/hr IVPB BID [facility] PRN Reason: Protocol Last Admin: 07/27/16 10:48 Dose: 100 mls/hr Sodium Chloride (Normal Saline -) 1,000 mls @ 100 mls/hr IV ASDIR [facility] Last Admin: 07/26/16 23:51 Dose: 100 mls/hr Quetiapine Fumarate (Seroquel -) 100 mg PO HS [facility] Last Admin: 07/26/16 23:27 Dose: 100 mg Quetiapine Fumarate (Seroquel -) 50 mg PO AM [facility] Last Admin: 07/27/16 06:38 Dose: 50 mg Ranitidine HCl (Zantac -) 150 mg PO DAILY [facility] Last Admin: 07/27/16 14:19 Dose: 150 mg - Objective Vital Signs: Vital Signs Temperature 98.6 F 07/27/16 07:00 Pulse Rate 96 H 07/27/16 07:00 Respiratory Rate 20 07/27/16 07:00 Blood Pressure 116/74 07/27/16 07:00 O2 Sat by Pulse Oximetry (%) 96 07/26/16 22:00 Constitutional: Yes: Well Nourished, No Distress Eyes: Yes: Conjunctiva Clear, EOM Intact HENT: Yes: Atraumatic, Normocephalic Neck: Yes: Supple, Trachea Midline Cardiovascular: Yes: Regular Rate and Rhythm Respiratory: Yes: CTA Bilaterally Gastrointestinal: Yes: Normal Bowel Sounds Extremities: Yes: WNL Edema: No Labs: CBC, BMP 07/27/16 05:48 07/27/16 05:48 INR, PTT INR 1.20 (0.82-1.09) H 07/26/16 10:45 Problem List - Problems (1) Rhabdomyolysis Assessment/Plan: The elevated troponin is most likely non ischemic in pattern. Trend troponin and CPK. Renal evaluation. [facility] eval read and agree. Echocardiogram to assess LV function. Hold as many medications as possible, especially antipsychotics as some can contribute to this, but the underlying etiology is likely infection. No plans for ischemia workup. Can dc telemetry if echo unremarkable. Code(s): M62.82 - RHABDOMYOLYSIS Qualifiers: Rhabdomyolysis type: non-traumatic Qualified Code(s): M62.82 - Rhabdomyolysis
--- NOTE | 2016-07-27 15:32 | PN ---
Progress Note (short form) - Note Progress Note: ID Consult dictated UTI/ Sepsis secondary to UTI Fever/ leukocytosis-improved Lactic acidosis Azotemia PCN allergy Await c/s Pending c/s, empiric ceftriaxone 2gm IVPB q24h
[2016-07-27] MEDS: CEFTRIAXONE 100 ML IVPB SCH (17:04)
[2016-07-27] MEDS: POLYETHYLENE GLYCOL 3350 119 GM BTL PO SCH (17:04)
[2016-07-27] MEDS: ACLIDINIUM BROMIDE 400 MCG/INH AERO.POWD IH SCH ×2 (17:04→22:03)
[2016-07-27] MEDS: SODIUM CHLORIDE 1,000 ML IV SCH (17:05)
--- NOTE | 2016-07-27 17:06 | CONS ---
DATE OF CONSULTATION: DATE OF DICTATION: 07/27/2016 INFECTIOUS DISEASE CONSULTATION HISTORY OF PRESENT ILLNESS: Patient is a 70-year-old female evaluated for urinary tract infection. The patient was admitted to the hospital on July 26, 2016, with complaints of fever and chills for 3 days. She was noted to be febrile, hypotensive, and confused in the emergency room with a markedly elevated white blood cell count. Urinalysis showed many white cells. She has a history of allergy to AMOXICILLIN. She was empirically treated with vancomycin and Azactam. The patient required aggressive IV fluid resuscitation with 2 L of normal saline. Her course was complicated by lactic acidosis, acute kidney injury, and rhabdomyolysis. At the present time, she is awake, alert. She is out of bed to chair. She complains of some dysuria and suprapubic discomfort. She denies any flank pain, no nausea/vomiting. She has tolerated the antibiotic therapy without adverse reaction. PAST MEDICAL HISTORY: Positive for mild dementia, right forearm melanoma, COPD, gastroesophageal reflux, stroke, lung cancer, breast cancer status post resection and radiation, depression. PAST SURGICAL HISTORY: Status post colon cancer, appendectomy, cholecystectomy. ALLERGIES: AMOXICILLIN. She reports developing a generalized rash approximately 10 years ago, no history of anaphylaxis. MEDICATION: Remeron, Celexa, valium, Depakote, Cymbalta, Prilosec, Seroquel, Buspar. SOCIAL HISTORY: Former smoker. SYSTEMS REVIEW: Neurologic: No loss of consciousness, seizure activity, or focal weakness. Cardiac: Negative chest pain or palpitations. Respiratory: Negative cough or sputum production. Gastrointestinal: Negative vomiting or diarrhea. Genitourinary: As per HPI. LABORATORY DATA: White count on admission 19.9, presently 11.7. Hemoglobin 32.7, platelet count 137. BUN 40, creatinine 1.1. Urinalysis 284 white cells. PHYSICAL EXAMINATION: General: She is awake and alert. She is out of bed to chair, in no acute distress. Vital signs: Temperature 98.6, T-max 103, blood pressure 116/74, pulse 96 regular, respirations 20 per minute. HEENT: Sclerae anicteric. Cardiovascular: Heart sounds S1, S2. Respiratory: Lungs clear. Abdomen: Soft. There is mild suprapubic tenderness to palpation. No flank tenderness. Extremities: Positive for edema. IMPRESSION: 1. Urinary tract infection/sepsis secondary to urinary tract infection. 2. Fever, leukocytosis, improved. 3. PENICILLIN allergy. 4. Lactic acidosis. 5. Azotemia. Pending cultures, empiric antibiotic coverage with ceftriaxone 2 g IV piggyback every 24 hours. Await culture results. Anticipate early switch to oral antibiotics next 24 to 48 hours. Will follow. Thank you for the kind referral. YVONNE BOURNE M.D. [id number]
--- NOTE | 2016-07-27 18:35 | PN ---
Physical Exam: SUBJECTIVE: Patient seen and examined by me at bedside. No overnight events noted. Patient reports feeling better today with improving abdominal pain. Otherwise, patient denies fever, chills, nausea, vomiting, diarrhea, constipation, headaches, dizziness. OBJECTIVE: Vital Signs Period Temp Pulse Resp BP Sys/Htach Pulse Ox Last 24 Hr 97.2 F-98.6 F 86-96 16-20 110-131/57-74 96-98 GENERAL: Awake, alert, and fully oriented, in no acute distress. LUNGS: Breath sounds equal, clear to auscultation bilaterally. No wheezes, and no crackles. No accessory muscle use. HEART: Regular rate and rhythm, normal S1 and S2 without murmur, rub or gallop. ABDOMEN: Soft, Obese, moderate tenderness upon palpation of suprapubic region with distention, normoactive bowel sounds. MUSCULOSKELETAL: Right CVA tenderness. LOWER EXTREMITIES: No peripheral edema. NEUROLOGICAL: Normal speech. No facial droop Laboratory Results - last 24 hr 07/26/16 07/27/16 07/27/16 17:48 05:48 05:48 WBC 11.7 H D RBC 3.50 L D Hgb 10.8 D Hct 32.7 D MCV 93.5 MCHC 33.0 RDW 14.8 Plt Count 137 D MPV 8.6 Sodium 149 H Potassium 3.9 Chloride 115 H Carbon Dioxide 26 Anion Gap 8 BUN 40 H Creatinine 1.1 H D Random Glucose 101 Calcium 7.5 L Creatine Kinase CK-MB (CK-2) Troponin I 0.14 H 07/27/16 05:48 WBC RBC Hgb Hct MCV MCHC RDW Plt Count MPV Sodium Potassium Chloride Carbon Dioxide Anion Gap BUN Creatinine Random Glucose Calcium Creatine Kinase 1262 H D CK-MB (CK-2) 9.732 H Troponin I Active Medications Generic Name Dose Route Start Last Admin Trade Name Freq PRN Reason Stop Dose Admin Acetaminophen 650 mg 07/26/16 15:49 Tylenol - PO Q6H PRN FEVER OR PAIN Aclidinium [place] 1 puff 07/27/16 16:30 07/27/16 17:04 Tudorza - IH 1 puff BID LEFTY Administration Diazepam 5 mg 07/27/16 14:00 07/27/16 13:28 Valium - PO 5 mg TID LEFTY Administration Divalproex Sodium 750 mg 07/26/16 22:00 07/26/16 23:51 Depakote - PO 750 mg HS LEFTY Administration Heparin Sodium (Porcine) 5,000 unit 07/26/16 22:00 07/27/16 10:48 Heparin - SQ 5,000 unit BID LEFTY Administration Sodium Chloride 1,000 mls @ 100 mls/hr 07/26/16 18:00 07/27/16 17:05 Normal Saline - IV Not Given ASDIR LEFTY Ceftriaxone Sodium 100 mls @ 200 mls/hr 07/27/16 15:30 07/27/16 17:04 Rocephin 2gm Ivpb (Pre-Docked) IVPB 200 mls/hr DAILY LEFTY Administration Polyethylene Glycol 17 gm 07/27/16 16:30 07/27/16 17:04 Miralax (For Daily Use) - PO Not Given DAILY LEFTY Quetiapine Fumarate 100 mg 07/26/16 22:00 07/26/16 23:27 Seroquel - PO 100 mg HS LEFTY Administration Quetiapine Fumarate 50 mg 07/27/16 07:00 07/27/16 06:38 Seroquel - PO 50 mg AM LEFTY Administration Ranitidine HCl 150 mg 07/27/16 13:45 07/27/16 14:19 Zantac - PO 150 mg DAILY LEFTY Administration CHEST X-RAY(07/26/16): No evidence of CHF, Pneumothorax, pleural effusions, atelectasis. ASSESSMENT/PLAN: Patient is a 70 year old female with a PMHx of COPD, Bipolar disorder, Anxiety/ Depression, breast cancer s/p surgery/radiation/tamoxifen, lung cancer with partial lobectomy, R arm melanoma s/p wide excision lymphoscintogram who presented for fever and abdominal pain. Patient was found to have Severe Sepsis with UTI, UTI, rhabdomyolysis. Patient admitted for further monitoring and management. Severe Sepsis Secondary to UTI- Resolving -U/A revealed UTI with 2+ LE -Lactic Acid resolved -Continue maintenance IV NS @100mls/hr. -Aztreonam 1gm given. Patient has allergy to penicillin and QTc prolongation -ID consulted and switched patient to Rocephin 2gm daily -Blood cultures NGTD -Urine cultures pending -Tylenol 650mg Q6H PRN Acute Kidney Injury- Improved -Likely secondary to dehydration and sepsis -Today creatinine 1.1 -Continue IV NS @100mls/hr -Continue to monitor BMP Rhabdomyolysis-Improving -Likely secondary to Psychiatric medications -CPK 1262 -Continue IV NS @100mls/hr -Tried calling Psychiatrist, Dr. Jorge for alternative medications. Left voicemail twice and awaiting call back -Monitor CPK Elevated Troponins- Improved -Likely secondary to demand ischemia from GABBI and Sepsis -Initial level 0.23, second level 0.14 -Cardiology consult appreciated. Believe no cardiac origin -ECHO shows no regional wall motion abnormalities. Prolonged QTc- Improved -Likely secondary to Psychiatric medications -Will Avoid medications that cause increased QTc -Repeat EKG showed QTc of 433 -Tried calling PsychiatristDr. Jorge for alternative medications. Left voicemail twice and awaiting call back Polycythemia-Improving -Secondary to dehydration and Sepsis -Will continue to monitor CBC COPD-Controlled -Confirmed Medication. Resuemd patient on Spiriva -Continue 02 PRN Anxiety/Depression/Bipolar- Chronic -Continue Depakote 750mg HS and Seroquel 100mg HS and 50mg AM -Continue Valium 5mg TID -Will hold all antipsychotics that have a side effect of prolonged QTc -Will call Psychiatrist on alternative medications Alzheimers Dementia- Chronic -Continue Rivastigmine 3mg daily History of Breast Cancer s/p surgery/radiation/tamoxifen, lung cancer with partial lobectomy -Currently on no therapy or treatment. F/E/N -Maintenance of IV NS @100mls/hr -Electrolytes wnl -Regular diet Prophylaxis -Heparin 5000 units sq BID Disposition -Responded well to fluid resuscitation. Will continue to monitor until resolution of sepsis. Awaiting urine cultures Visit type - Emergency Visit Emergency Visit: Yes ED Registration Date: 07/26/16 Care time: The patient presented to the Emergency Department on the above date and was hospitalized for further evaluation of their emergent condition. - New Patient This patient is new to me today: No - Critical Care Critical Care patient: No
[2016-07-27] MEDS ORDERED: RIVASTIGMINE TARTRATE 3 MG PO SCH (18:45)
[2016-07-27] MEDS ORDERED: QUEtiapine FUMARATE 50 MG TABLET ONE (21:57)
[2016-07-27] MEDS ORDERED: PT OWN MED DRAWER 7, Y5N ONE (21:58)
[2016-07-27] MEDS: QUEtiapine FUMARATE 100 MG TABLET (FP) PO SCH (22:02)
[2016-07-27] MEDS: DIVALPROEX SODIUM 250 MG TABLET E.C. (FP) PO SCH (22:03)
[2016-07-28] MEDS: diazePAM 5 MG TABLET PO SCH ×2 (06:07→14:11)
[2016-07-28] MEDS: QUEtiapine FUMARATE 50 MG TABLET PO SCH (06:07)
[2016-07-28 07:27] LABS: MCHC 33.4 g/dl (32.0-36.0); MEAN CELL VOLUME 92.9 fl (80-96); MEAN PLT VOLUME 8.6 fl (7.5-11.1); PLATELET COUNT 123 K/MM3 (134-434); RDW 14.4 % (11.6-15.6); WHITE BLOOD COUNT 7.4 K/mm3 (4.0-10.0)
[2016-07-28 07:48] LABS: ANION GAP 7 (8-16); CALCIUM 7.6 mg/dL (8.5-10.1); CO2 29 mmol/L (21-32); CREATININE 0.9 mg/dL (0.55-1.02); GLUCOSE,RANDOM 92 mg/dL (74-106)
--- NOTE | 2016-07-28 08:15 | PN ---
Physical Exam: SUBJECTIVE: Patient seen and examined by me at bedside. Patient states she feels anxious because she is used to taking her medications when she first wakes up but is receiving them at 10:00 am here. Still complains of suprapubic tenderness and abdominal distention but reports it has improved. Otherwise, patient denies fever, chills, nausea, vomiting, constipation, diarrhea, chest pain, palpitations, shortness of breath. OBJECTIVE: Vital Signs Period Temp Pulse Resp BP Sys/Hatch Pulse Ox Last 24 Hr 97.2 F-99.2 F 63-94 18-20 110-132/56-70 97 GENERAL: Awake, alert, and fully oriented, in no acute distress. LUNGS: Breath sounds equal, clear to auscultation bilaterally. No wheezes, and no crackles. No accessory muscle use. HEART: Regular rate and rhythm, normal S1 and S2 without murmur, rub or gallop. ABDOMEN: Soft, Obese, moderate tenderness upon palpation of suprapubic region with distention, normoactive bowel sounds. MUSCULOSKELETAL: Right CVA tenderness. LOWER EXTREMITIES: No peripheral edema. NEUROLOGICAL: Normal speech. No facial droop Laboratory Results - last 24 hr 07/27/16 07/27/16 07/28/16 05:48 05:48 05:35 WBC 7.4 D RBC 3.31 L Hgb 10.3 L Hct 30.7 L MCV 92.9 MCHC 33.4 RDW 14.4 Plt Count 123 L MPV 8.6 Sodium 149 H Potassium 3.9 Chloride 115 H Carbon Dioxide 26 Anion Gap 8 BUN 40 H Creatinine 1.1 H D Random Glucose 101 Calcium 7.5 L Creatine Kinase 1262 H D CK-MB (CK-2) 9.732 H 07/28/16 05:35 WBC RBC Hgb Hct MCV MCHC RDW Plt Count MPV Sodium 145 Potassium 4.6 Chloride 109 H Carbon Dioxide 29 Anion Gap 7 L BUN 24 H D Creatinine 0.9 Random Glucose 92 Calcium 7.6 L Creatine Kinase CK-MB (CK-2) Active Medications Generic Name Dose Route Start Last Admin Trade Name Freq PRN Reason Stop Dose Admin Acetaminophen 650 mg 07/26/16 15:49 Tylenol - PO Q6H PRN FEVER OR PAIN Aclidinium [place] 1 puff 07/27/16 16:30 07/27/16 22:03 Tudorza - IH 1 puff BID LEFTY Administration Diazepam 5 mg 07/27/16 14:00 07/28/16 06:07 Valium - PO 5 mg TID LEFTY Administration Divalproex Sodium 750 mg 07/26/16 22:00 07/27/16 22:03 Depakote - PO 750 mg HS LEFTY Administration Heparin Sodium (Porcine) 5,000 unit 07/26/16 22:00 07/27/16 22:03 Heparin - SQ 5,000 unit BID LEFTY Administration Sodium Chloride 1,000 mls @ 100 mls/hr 07/26/16 18:00 07/27/16 17:05 Normal Saline - IV Not Given ASDIR LEFTY Ceftriaxone Sodium 100 mls @ 200 mls/hr 07/27/16 15:30 07/27/16 17:04 Rocephin 2gm Ivpb (Pre-Docked) IVPB 200 mls/hr DAILY LEFTY Administration Non-Formulary Medication 3 mg 07/27/16 18:45 Rivastigmine Tartrate [Rivastigmine] PO ASDIR LEFTY Polyethylene Glycol 17 gm 07/27/16 16:30 07/27/16 17:04 Miralax (For Daily Use) - PO Not Given DAILY LEFTY Quetiapine Fumarate 100 mg 07/26/16 22:00 07/27/16 22:02 Seroquel - PO 100 mg HS LEFTY Administration Quetiapine Fumarate 50 mg 07/27/16 07:00 07/28/16 06:07 Seroquel - PO 50 mg AM LEFTY Administration Ranitidine HCl 150 mg 07/27/16 13:45 07/27/16 14:19 Zantac - PO 150 mg DAILY LEFTY Administration CHEST X-RAY(07/26/16): No evidence of CHF, Pneumothorax, pleural effusions, atelectasis. ASSESSMENT/PLAN: Patient is a 70 year old female with a PMHx of COPD, Bipolar disorder, Anxiety/ Depression, breast cancer s/p surgery/radiation/tamoxifen, lung cancer with partial lobectomy, R arm melanoma s/p wide excision lymphoscintogram who presented for fever and abdominal pain. Patient was found to have Severe Sepsis with UTI, GABBI, and rhabdomyolysis. Patient admitted for further monitoring and management. Severe Sepsis Secondary to UTI- Resolving -U/A revealed UTI with 2+ LE -Continue maintenance IV NS @100mls/hr. -Continue Rocephin 2gm daily -Blood cultures NGTD -Urine cultures pending -Tylenol 650mg Q6H PRN Acute Kidney Injury- Resolved -Likely secondary to dehydration and sepsis -Today creatinine 0.9 -Continue IV NS @100mls/hr -Continue to monitor BMP Rhabdomyolysis-Improving -Likely secondary to Psychiatric medications -Continue IV NS @100mls/hr -Tried calling PsychiatristDr. Jorge for alternative medications again today, no call back -Monitor CPK Elevated Troponins-Resolved -Likely secondary to demand ischemia from GABBI and Sepsis -Cardiology consult appreciated. Believe no cardiac origin -ECHO shows no regional wall motion abnormalities. Prolonged QTc- Resolved -Likely secondary to Psychiatric medications -Will Avoid medications that cause increased QTc -Repeat EKG showed QTc of 433 -Tried calling PsychiatristDr. Jorge for alternative medications, no call back Polycythemia-Resolved -Secondary to dehydration and Sepsis -Will continue to monitor CBC COPD-Controlled -Continue [place] 1 Puff daily -Continue 02 PRN Anxiety/Depression/Bipolar- Chronic -Continue Depakote 750mg HS and Seroquel 100mg HS and 50mg AM -Continue Valium 5mg TID -Will hold all antipsychotics that have a side effect of prolonged QTc -Will call Psychiatrist on alternative medications Alzheimers Dementia- Chronic -Continue Rivastigmine 3mg daily History of Breast Cancer s/p surgery/radiation/tamoxifen, lung cancer with partial lobectomy -Currently on no therapy or treatment. F/E/N -Maintenance of IV NS @100mls/hr -Electrolytes wnl -Regular diet Prophylaxis -Heparin 5000 units sq BID Disposition -Patient improved. Awaiting urine cultures. Possible discharge today
--- NOTE | 2016-07-28 08:23 | PN ---
Teaching Attending Note Name of Resident: Ewelina Salcido ATTENDING PHYSICIAN STATEMENT I saw and evaluated the patient. I reviewed the resident's note and discussed the case with the resident. I agree with the resident's findings and plan as documented. SUBJECTIVE: The patient is a 70 year old female with a significant PMHx of COPD, Bipolar disorder, Anxiety/Depression, Dementia who was admitted with sepsis secondary to UTI, rhabdomyelitis and GABBI. Sepsis has resolved. BCx NGTD. Creatinine much improved. OBJECTIVE: Vitals noted ASSESSMENT AND PLAN: Awaiting clarification of psych meds by her private psychologist PCP is aware of the meds she was taking on admission and does confirm their accuracy Anticipate discharge later today pending PT evaluation See resident note for full details
[2016-07-28] MEDS: HEPARIN NA (PORCINE) 5,000 UNITS/ML 1ML VIAL SQ SCH (09:23)
[2016-07-28] MEDS: CEFTRIAXONE 100 ML IVPB SCH (09:23)
[2016-07-28] MEDS: RANITIDINE HCL 150 MG TABLET (FP) PO SCH (09:23)
[2016-07-28] MEDS: POLYETHYLENE GLYCOL 3350 119 GM BTL PO SCH (09:23)
[2016-07-28] MEDS: ACLIDINIUM BROMIDE 400 MCG/INH AERO.POWD IH SCH (09:24)
--- NOTE | 2016-07-28 11:36 | DS ---
Physical Exam: SUBJECTIVE: Patient seen and examined by me at bedside. Patient states she feels anxious because she is used to taking her medications when she first wakes up but is receiving them at 10:00 am here. Reports abdominal pain is much better. Otherwise, patient denies fever, chills, nausea, vomiting, constipation, diarrhea, chest pain, palpitations, shortness of breath. OBJECTIVE: Vital Signs Period Temp Pulse Resp BP Sys/Hatch Pulse Ox Last 24 Hr 97.2 F-99.2 F 63-110 18-20 110-132/56-70 97-97 PHYSICAL EXAM GENERAL: Awake, alert, and fully oriented, in no acute distress. LUNGS: Breath sounds equal, clear to auscultation bilaterally. No wheezes, and no crackles. No accessory muscle use. HEART: Regular rate and rhythm, normal S1 and S2 without murmur, rub or gallop. ABDOMEN: Soft, Obese, moderate tenderness upon palpation of suprapubic region, normoactive bowel sounds. MUSCULOSKELETAL: mild right CVA tenderness. LOWER EXTREMITIES: No peripheral edema. NEUROLOGICAL: Normal speech. No facial droop LABS Laboratory Results - last 24 hr 07/28/16 07/28/16 05:35 05:35 WBC 7.4 D RBC 3.31 L Hgb 10.3 L Hct 30.7 L MCV 92.9 MCHC 33.4 RDW 14.4 Plt Count 123 L MPV 8.6 Sodium 145 Potassium 4.6 Chloride 109 H Carbon Dioxide 29 Anion Gap 7 L BUN 24 H D Creatinine 0.9 Random Glucose 92 Calcium 7.6 L CHEST X-RAY(07/26/16): No evidence of CHF, Pneumothorax, pleural effusions, atelectasis. HOSPITAL COURSE: Patient is a 70 year old female with a PMHx of COPD, Bipolar disorder, Anxiety/ Depression, breast cancer s/p surgery/radiation/tamoxifen, lung cancer with partial lobectomy, R arm melanoma s/p wide excision lymphoscintogram who presented for fever and abdominal pain. Patient was found to have Severe Sepsis with UTI, GABBI, rhabdomyolysis, and prolonged QTc likely secondary to tachycardia. Patient was given 5 Literal of fluids and started on IV antibiotics. Patient responded appropriately to fluid resuscitation and abx with a total of 2 days Rocephin and 1 day Aztreonam. She has been Afebrile in over 48 hours with less abdominal pain and tenderness. Urine cultures were positive for lactose fermenting gram negative bacilli. GABBI resolved and creatinine is now at baseline level. Patient was also found to have Rhabdomyolysis likely secondary to her anxiety/depression/Bipolar medications. All medications with side effects causing rhabdomyolysis were stopped and patient's psychiatrist was contacted with a voicemail left and no call back twice for reconciliation of medications. Patient's Primary care physician was contacted and all medications were confirmed and he is aware of the situation. Rhabdomyolysis resolved with IV fluids. Patient was also found to have slightly elevated troponins and were likely secondary to demand ischemia from GABBI. Cardiology consult placed and do not believe its cardiac origin. Elevated Troponins resolved once GABBI was resolved. Repeat EKG was done and patient no longer had prolonged QTc Patient significantly improved clinically and is stable for discharge. Discussed in detail the importance of following up with her Psychiatrist for further medication adjustments and to make an appointment with her PMD by Sunday (07/31/16). Patient verbalized understanding. Patient will be picked up by sister and discharged home. Date of Admission:07/26/16 Date of Discharge: 07/28/16 Minutes to complete discharge: 45 Discharge Summary Reason For Visit: FEVER,SOB,SEPSIS Current Active Problems Fever (Acute) Lactic acidosis (Acute) Rhabdomyolysis (Acute) Sepsis (Acute) Condition: Stable - Instructions Diet, Activity, Other Instructions: -You were admitted for an UTI. You will be prescribed antibiotics. Please pick it up from the pharmacy -You were also found to have some muscle breakdown which might be due to your anti-depressant, anti-anxiety and bi-polar medications. Please follow up with your Psychiatrist so he can readjust your medications by Sunday -Your Prilosec medication has been discontinued but another prescription was sent for Zantac. Please pick remover your medication from the pharmaxy -Please follow up with your primary care doctor by next week. -You may resume your regular diet and daily activities. Stay hydrated with fluids -If you have any worsening symptoms, please return to the emergency department. Referrals: Miller Blandon MD [Primary Care Provider] - Disposition: HOME - Home Medications Comprehensive Discharge Medication List: Ambulatory Orders Mirtazapine [Remeron] 45 mg PO HS 10/30/11 Citalopram Hydrobromide [Celexa -] 20 mg PO DAILY #0 tablet 04/30/13 Diazepam [Valium] 5 mg PO TID 11/03/14 Divalproex [Depakote -] 750 mg PO HS 11/03/14 Duloxetine HCl [Cymbalta -] 20 mg PO BID 11/03/14 Omeprazole [Prilosec] 20 mg PO DAILY 11/03/14 Quetiapine Fumarate [Seroquel -] 50 mg PO AM 11/03/14 Buspirone HCl [Buspar] 5 mg PO TID 07/26/16 Quetiapine Fumarate [Seroquel] 100 mg PO HS 07/26/16 Rivastigmine Tartrate [Rivastigmine] 3 mg PO ASDIR 07/26/16 This patient is new to me today: No Emergency Visit: Yes ED Registration Date: 07/26/16 Care time: The patient presented to the Emergency Department on the above date and was hospitalized for further evaluation of their emergent condition. Critical Care patient: No - Discharge Referral Referred to [facility] Med P.C.: No
--- NOTE | 2016-07-28 14:43 | PN ---
Progress Note, Physician Chief Complaint: no new complaints tele neg History of Present Illness: 70f COPD, constipation, h/o breast ca s/p resection/RT, Lung cancer s/p resection, h/o CVA, dementia who was admitted with altered mental status and fevers. Found in ER with severe elevation of CPK and GABBI. Also elevated troponin but no chest pain or sob. Denies cardiac complaints. Echo 2014 increased EF, min MR/TR Echo 07/27/16 tds normal EF - Current Medication List Current Medications: Active Medications Acetaminophen (Tylenol -) 650 mg PO Q6H PRN PRN Reason: FEVER OR PAIN Aclidinium [place] (Tudorza -) 1 puff IH BID COUNT INCLUDES [facility] Last Admin: 07/28/16 09:24 Dose: 1 puff Diazepam (Valium -) 5 mg PO TID COUNT INCLUDES THE [facility] Last Admin: 07/28/16 06:07 Dose: 5 mg Divalproex Sodium (Depakote -) 750 mg PO HS COUNT INCLUDES THE [facility] Last Admin: 07/27/16 22:03 Dose: 750 mg Heparin Sodium (Porcine) (Heparin -) 5,000 unit SQ BID COUNT INCLUDES [facility] Last Admin: 07/28/16 09:23 Dose: 5,000 unit Sodium Chloride (Normal Saline -) 1,000 mls @ 100 mls/hr IV ASDIR COUNT INCLUDES THE [facility] Last Admin: 07/27/16 17:05 Dose: Not Given Ceftriaxone Sodium (Rocephin 2gm Ivpb (Pre-Docked)) 100 mls @ 200 mls/hr IVPB DAILY COUNT INCLUDES THE [facility] Last Admin: 07/28/16 09:23 Dose: 200 mls/hr Non-Formulary Medication (Rivastigmine Tartrate [Rivastigmine]) 3 mg PO ASDIR COUNT INCLUDES THE [facility] Polyethylene Glycol (Miralax (For Daily Use) -) 17 gm PO DAILY COUNT INCLUDES THE [facility] Last Admin: 07/28/16 09:23 Dose: Not Given Quetiapine Fumarate (Seroquel -) 100 mg PO HS COUNT INCLUDES THE [facility] Last Admin: 07/27/16 22:02 Dose: 100 mg Quetiapine Fumarate (Seroquel -) 50 mg PO AM COUNT INCLUDES THE [facility] Last Admin: 07/28/16 06:07 Dose: 50 mg Ranitidine HCl (Zantac -) 150 mg PO DAILY COUNT INCLUDES THE [facility] Last Admin: 07/28/16 09:23 Dose: 150 mg - Objective Vital Signs: Vital Signs Temperature 98.7 F 07/28/16 10:02 Pulse Rate 110 H 07/28/16 10:02 Respiratory Rate 20 07/28/16 10:02 Blood Pressure 118/63 07/28/16 10:02 O2 Sat by Pulse Oximetry (%) 97 07/28/16 10:02 Constitutional: Yes: No Distress Eyes: Yes: Conjunctiva Clear, EOM Intact HENT: Yes: Atraumatic, Normocephalic Neck: Yes: Supple, Trachea Midline Cardiovascular: Yes: Regular Rate and Rhythm Respiratory: Yes: CTA Bilaterally Gastrointestinal: Yes: Normal Bowel Sounds Musculoskeletal: Yes: WNL Extremities: Yes: WNL Labs: CBC, BMP 07/28/16 05:35 07/28/16 05:35 INR, PTT INR 1.20 (0.82-1.09) H 07/26/16 10:45 Problem List - Problems (1) Rhabdomyolysis Assessment/Plan: The elevated troponin is most likely non ischemic in pattern. Trend troponin and CPK. Renal evaluation. [facility] eval read and agree. Echocardiogram unremarkable. Hold as many medications as possible, especially antipsychotics as some can contribute to this, but the underlying etiology is likely infection. No plans for ischemia workup. Can dc telemetry. will follow as needed. Code(s): M62.82 - RHABDOMYOLYSIS Qualifiers: Rhabdomyolysis type: non-traumatic Qualified Code(s): M62.82 - Rhabdomyolysis
[2016-07-28 14:52] VITALS: BP 133/62; PULSE 97; TEMP 99.4
--- NOTE | 2016-07-28 15:19 | PN ---
Progress Note, Physician History of Present Illness: Awake, alert No complaints No dysuria/ hematuria No fever/ chills Tolerated cephalosporin without adverse rxn - Current Medication List Current Medications: Active Medications Acetaminophen (Tylenol -) 650 mg PO Q6H PRN PRN Reason: FEVER OR PAIN Aclidinium [place] (Tudorza -) 1 puff IH BID [facility] Last Admin: 07/28/16 09:24 Dose: 1 puff Diazepam (Valium -) 5 mg PO TID [facility] Last Admin: 07/28/16 06:07 Dose: 5 mg Divalproex Sodium (Depakote -) 750 mg PO HS [facility] Last Admin: 07/27/16 22:03 Dose: 750 mg Heparin Sodium (Porcine) (Heparin -) 5,000 unit SQ BID [facility] Last Admin: 07/28/16 09:23 Dose: 5,000 unit Sodium Chloride (Normal Saline -) 1,000 mls @ 100 mls/hr IV ASDIR [facility] Last Admin: 07/27/16 17:05 Dose: Not Given Ceftriaxone Sodium (Rocephin 2gm Ivpb (Pre-Docked)) 100 mls @ 200 mls/hr IVPB DAILY [facility] Last Admin: 07/28/16 09:23 Dose: 200 mls/hr Non-Formulary Medication (Rivastigmine Tartrate [Rivastigmine]) 3 mg PO ASDIR [facility] Polyethylene Glycol (Miralax (For Daily Use) -) 17 gm PO DAILY [facility] Last Admin: 07/28/16 09:23 Dose: Not Given Quetiapine Fumarate (Seroquel -) 100 mg PO HS [facility] Last Admin: 07/27/16 22:02 Dose: 100 mg Quetiapine Fumarate (Seroquel -) 50 mg PO AM [facility] Last Admin: 07/28/16 06:07 Dose: 50 mg Ranitidine HCl (Zantac -) 150 mg PO DAILY [facility] Last Admin: 07/28/16 09:23 Dose: 150 mg - Objective Vital Signs: Vital Signs Temperature 99.4 F 07/28/16 14:00 Pulse Rate 97 H 07/28/16 14:00 Respiratory Rate 20 07/28/16 14:00 Blood Pressure 133/62 07/28/16 14:00 O2 Sat by Pulse Oximetry (%) 97 07/28/16 10:02 Constitutional: Yes: No Distress Eyes: Yes: Conjunctiva Clear Cardiovascular: Yes: Regular Rate and Rhythm, S1, S2 Respiratory: Yes: CTA Bilaterally Gastrointestinal: Yes: Normal Bowel Sounds, Soft. No: Tenderness Edema: Yes Edema: LLE: 1+, RLE: 1+ Labs: CBC, BMP 07/28/16 05:35 07/28/16 05:35 INR, PTT INR 1.20 (0.82-1.09) H 07/26/16 10:45 Assessment/Plan UTI/ Sepsis secondary to UTI Fever/ leukocytosis- resolved PCN allergy Azotemia- resolved Switch to po cephalosporin x 7d
== END 2016-07-28 18:00 | disposition home or self-care (01) | DRG 872 ==
LOC: JER 09:57 → JERBED 14:17 → J4W 21:53
PROVIDERS: ADMIT Internal Medicine; ATTEND Internal Medicine
DX: A41.89 Other specified sepsis (principal); N17.9 Acute kidney failure, unspecified; M62.82 Rhabdomyolysis; E87.2 Acidosis; N39.0 Urinary tract infection, site not specified; I24.8 Other forms of acute ischemic heart disease; R65.20 Severe sepsis without septic shock; J44.9 Chronic obstructive pulmonary disease, unspecified; K59.09 Other constipation; K21.9 Gastro-esophageal reflux disease without esophagitis; R01.1 Cardiac murmur, unspecified; R06.82 Tachypnea, not elsewhere classified; D72.829 Elevated white blood cell count, unspecified; R50.9 Fever, unspecified; F41.8 Other specified anxiety disorders; E86.0 Dehydration; F31.9 Bipolar disorder, unspecified; D75.1 Secondary polycythemia; Z88.0 Allergy status to penicillin; G30.9 Alzheimer's disease, unspecified; F02.80 Dementia in other diseases classified elsewhere, unspecified severity, without behavioral disturbance, psychotic disturbance, mood disturbance, and anxiety; Z87.891 Personal history of nicotine dependence; Z85.3 Personal history of malignant neoplasm of breast; Z85.820 Personal history of malignant melanoma of skin; Z85.118 Personal history of other malignant neoplasm of bronchus and lung; Z86.73 Personal history of transient ischemic attack (TIA), and cerebral infarction without residual deficits; Z85.038 Personal history of other malignant neoplasm of large intestine
CPT/HCPCS: 36415; 71010-TC; 80048; 80053; 81003; 81015; 82550; 82553; 82803; 83605; 84484; 85025; 85027; 85610; 85730; 86850; 86900; 86901; 87040; 87086; 87186; 93005; 93010; 93306-TC; 97116-GP; 97161-GP; 99284-25; J1644

== ENCOUNTER 2020-08-17 10:55 | Inpatient (IN) | payer BC, OTHER ==
[2020-08-17 11:03] VITALS: BMI 36.0
[2020-08-17] MEDS ORDERED: FUROSEMIDE 40 MG/4 ML INJECTABLE VIAL IVPUSH ONE ×2 (11:25→14:33)
[2020-08-17] MEDS ORDERED: methylPREDNISolone NA SUCC 125 MG/2 ML VIAL IVPUSH ONE (11:39)
[2020-08-17 12:15] LABS: BASO % 0.6 % (0-2.0); EOS % 0.6 % (0-4.5); HEMATOCRIT 31.1 % (32.4-45.2); HEMOGLOBIN 10.4 GM/dL (10.7-15.3); MCH 29.9 pg (25.7-33.7); MCHC 33.6 g/dl (32.0-36.0); MEAN PLT VOLUME 7.3 fl (7.5-11.1); MONO % 10.9 % (3.8-10.2); NEUT % 78.9 % (42.8-82.8); PLATELET COUNT 298 10^3/uL (134-434); RBC 3.49 M/mm3 (3.60-5.2)
[2020-08-17] MEDS ORDERED: ALBUTEROL SO4 2.5/IPRATROPIUM 0.5 INH SOL 3 ML VIAL.NEB. NEB ONE ×3 (12:16→20:09)
[2020-08-17] MEDS ORDERED: methylPREDNISolone NA SUCC 125 MG/2 ML VIAL ONE (12:17)
[2020-08-17] MEDS ORDERED: FUROSEMIDE 40 MG/4 ML INJECTABLE VIAL ONE ×2 (12:17→14:40)
[2020-08-17] MEDS: ALBUTEROL SO4 2.5/IPRATROPIUM 0.5 INH SOL 3 ML VIAL.NEB. NEB SCH ×5 (12:25→20:16)
[2020-08-17 12:38] LABS: CHLORIDE 102 mmol/L (98-107); SODIUM 137 mmol/L (136-145)
[2020-08-17 12:40] LABS: ALBUMIN 2.9 g/dl (3.4-5.0); ANION GAP 8 MMOL/L (8-16); BLOOD UREA NITROGEN 16.7 mg/dL (7-18); CALCIUM 8.1 mg/dL (8.5-10.1); CO2 28 mmol/L (21-32); GLUCOSE,RANDOM 104 mg/dL (74-106); MAGNESIUM 2.3 mg/dL (1.8-2.4)
[2020-08-17 12:43] LABS: CREATININE 0.9 mg/dL (0.55-1.3); SGPT/ALT 15 U/L (13-61)
[2020-08-17 12:44] LABS: SGOT/AST 11 U/L (15-37)
[2020-08-17 12:45] LABS: BILIRUBIN,TOTAL 0.4 mg/dL (0.2-1); TOT PROT 6.1 g/dl (6.4-8.2)
[2020-08-17 12:46] LABS: ALK PHOS 76 U/L (45-117)
[2020-08-17 12:49] LABS: N-TERMINAL BNP 631.8 pg/ml (5-125)
[2020-08-17] MEDS ORDERED: CEFTRIAXONE 1 GM in DEXTROSE 5%-WATER - 100 ML IVPB ONE (14:32)
[2020-08-17] MEDS ORDERED: CEFTRIAXONE 1 GM/50 ML BAG ONE (14:39)
[2020-08-17] MEDS ORDERED: ACETAMINOPHEN 325 MG TABLET (FP) PO PRN (14:41)
[2020-08-17] MEDS ORDERED: BUDESONIDE/FORMETEROL FUMARATE 160/4.5 mcg INHALER IH ONE (14:46)
[2020-08-17] MEDS ORDERED: ALBUTEROL SO4 HFA INHALER IH PRN (14:46)
[2020-08-17] MEDS ORDERED: ALBUTEROL SO4 0.083% IH SOL 2.5 MG/3 ML VIAL.NEB. NEB PRN (15:15)
[2020-08-17] MEDS: methylPREDNISolone NA SUCC 40 MG/1 ML VIAL IVPUSH SCH ×2 (16:15→20:16)
[2020-08-17] MEDS ORDERED: methylPREDNISolone NA SUCC 40 MG/1 ML VIAL ONE (16:16)
[2020-08-17] MEDS ORDERED: HYDROCORTISONE SOD SUCCINATE 100 MG/2 ML VIAL ONE (20:09)
[2020-08-17] MEDS: QUEtiapine FUMARATE 25 MG TABLET PO SCH (21:59)
[2020-08-17] MEDS: DIVALPROEX SODIUM 250 MG TABLET E.C. PO SCH (22:00)
[2020-08-17] MEDS: BUDESONIDE/FORMETEROL FUMARATE 160/4.5 mcg INHALER IH SCH (22:00)
[2020-08-17] MEDS: PRAMIPEXOLE DIHYDROCHLORIDE 0.5 MG TABLET PO SCH (22:01)
[2020-08-18] MEDS: methylPREDNISolone NA SUCC 40 MG/1 ML VIAL IVPUSH SCH ×3 (02:54→22:12)
[2020-08-18] MEDS: PRAMIPEXOLE DIHYDROCHLORIDE 0.25 MG TABLET PO SCH (06:43)
[2020-08-18 07:26] LABS: BASO % 0.2 % (0-2.0); HEMATOCRIT 32.1 % (32.4-45.2); HEMOGLOBIN 10.8 GM/dL (10.7-15.3); LYMPH % 6.2 % (8-40); MCHC 33.8 g/dl (32.0-36.0); MEAN CELL VOLUME 88.8 fl (80-96); MEAN PLT VOLUME 7.9 fl (7.5-11.1); MONO % 1.9 % (3.8-10.2); NEUT % 91.7 % (42.8-82.8); PLATELET COUNT 296 10^3/uL (134-434); RBC 3.62 M/mm3 (3.60-5.2); RDW 14.9 % (11.6-15.6); WHITE BLOOD COUNT 10.4 K/mm3 (4.0-10.0)
[2020-08-18] MEDS: ALBUTEROL SO4 2.5/IPRATROPIUM 0.5 INH SOL 3 ML VIAL.NEB. NEB SCH ×4 (07:39→20:10)
[2020-08-18 07:51] LABS: ALBUMIN 2.8 g/dl (3.4-5.0)
[2020-08-18 07:53] LABS: MAGNESIUM 2.4 mg/dL (1.8-2.4)
[2020-08-18 07:54] LABS: BLOOD UREA NITROGEN 23.9 mg/dL (7-18); CALCIUM 8.2 mg/dL (8.5-10.1); CREATININE 0.9 mg/dL (0.55-1.3)
[2020-08-18 07:55] LABS: TOT PROT 6.3 g/dl (6.4-8.2)
[2020-08-18 07:57] LABS: PHOSPHOROUS 4.7 mg/dL (2.5-4.9)
[2020-08-18 07:59] LABS: BILIRUBIN,TOTAL 0.5 mg/dL (0.2-1)
[2020-08-18] MEDS ORDERED: DEXTROSE 5%-WATER - 50 ML IVPB ONE (09:04)
[2020-08-18] MEDS ORDERED: cefTRIAXone SODIUM 1 GM VIAL ONE (09:04)
[2020-08-18] MEDS: CITALOPRAM HYDROBROMIDE 20 MG TABLET PO SCH (09:13)
[2020-08-18] MEDS: DONEPEZIL HCL 10 MG TABLET (FP) PO SCH (09:13)
[2020-08-18] MEDS: ENOXAPARIN NA (PORCINE) 40 MG/0.4 ML DISP.SYRIN SQ SCH (09:13)
[2020-08-18] MEDS ORDERED: CITALOPRAM HYDROBROMIDE 20 MG TABLET PO ONE (09:15)
[2020-08-18 09:26] LABS: ANISOCYTOSIS 0; HELMET CELLS 0; HOWELL-JOLLY BODIES 0; MACROCYTOSIS 0; OVALOCYTE 0; PLATELET ESTIMATE NORMAL; ROULEAU 0; SICKELED CELLS 0; TARGET CELLS 0; TEAR DROP CELLS 0; TOXIC GRANULATION 0
[2020-08-18 09:41] LABS: ALLENS TEST POSITIVE; ARTERIAL BLOOD GAS BASE EXCESS 3.8 mmol/L (-2-2); ARTERIAL BLOOD GAS PO2 82.9 mmHg (80-100); ARTERIAL BLOOD GAS pH 7.494 (7.350-7.450)
[2020-08-18] MEDS ORDERED: CEFTRIAXONE 1 GM in DEXTROSE 5%-WATER - 50 ML IVPB SCH (10:00)
[2020-08-18] MEDS: FUROSEMIDE 40 MG/4 ML INJECTABLE VIAL IVPUSH SCH (11:29)
[2020-08-18] MEDS: AZITHROMYCIN 250 MG TABLET PO SCH (11:29)
[2020-08-18] MEDS: BUDESONIDE/FORMETEROL FUMARATE 160/4.5 mcg INHALER IH SCH ×2 (13:05→22:12)
[2020-08-18] MEDS ORDERED: PT OWN MED DRAWER 7, Y5N ONE (22:08)
[2020-08-18] MEDS: QUEtiapine FUMARATE 25 MG TABLET PO SCH (22:11)
[2020-08-18] MEDS: DIVALPROEX SODIUM 250 MG TABLET E.C. PO SCH (22:11)
[2020-08-18] MEDS: PRAMIPEXOLE DIHYDROCHLORIDE 0.5 MG TABLET PO SCH (22:12)
[2020-08-19] MEDS: PRAMIPEXOLE DIHYDROCHLORIDE 0.25 MG TABLET PO SCH (06:25)
[2020-08-19 07:26] LABS: HEMATOCRIT 35.5 % (32.4-45.2); HEMOGLOBIN 11.9 GM/dL (10.7-15.3); MCHC 33.6 g/dl (32.0-36.0); MEAN CELL VOLUME 89.5 fl (80-96); MEAN PLT VOLUME 7.5 fl (7.5-11.1); PLATELET COUNT 359 10^3/uL (134-434); RBC 3.97 M/mm3 (3.60-5.2); RDW 14.7 % (11.6-15.6); WHITE BLOOD COUNT 13.8 K/mm3 (4.0-10.0)
[2020-08-19] MEDS: ALBUTEROL SO4 2.5/IPRATROPIUM 0.5 INH SOL 3 ML VIAL.NEB. NEB SCH ×4 (07:30→20:27)
[2020-08-19 08:01] LABS: CALCIUM 8.7 mg/dL (8.5-10.1)
[2020-08-19 08:02] LABS: BLOOD UREA NITROGEN 33.9 mg/dL (7-18); CREATININE 1.1 mg/dL (0.55-1.3); MAGNESIUM 2.6 mg/dL (1.8-2.4)
[2020-08-19 08:04] LABS: BILIRUBIN,TOTAL 0.4 mg/dL (0.2-1)
[2020-08-19 08:05] LABS: PHOSPHOROUS 4.5 mg/dL (2.5-4.9)
[2020-08-19] MEDS: AZITHROMYCIN 250 MG TABLET PO SCH (09:05)
[2020-08-19] MEDS: methylPREDNISolone NA SUCC 40 MG/1 ML VIAL IVPUSH SCH ×2 (09:05→17:01)
[2020-08-19] MEDS: FUROSEMIDE 40 MG/4 ML INJECTABLE VIAL IVPUSH SCH ×2 (09:05→17:01)
[2020-08-19] MEDS: ENOXAPARIN NA (PORCINE) 40 MG/0.4 ML DISP.SYRIN SQ SCH (09:05)
[2020-08-19] MEDS: DONEPEZIL HCL 10 MG TABLET (FP) PO SCH (09:06)
[2020-08-19] MEDS: BUDESONIDE/FORMETEROL FUMARATE 160/4.5 mcg INHALER IH SCH ×2 (09:06→21:51)
[2020-08-19] MEDS: CITALOPRAM HYDROBROMIDE 20 MG TABLET PO SCH (09:06)
[2020-08-19] MEDS ORDERED: PT OWN MED DRAWER 7, Y5N ONE (21:10)
[2020-08-19] MEDS: DIVALPROEX SODIUM 250 MG TABLET E.C. PO SCH (21:50)
[2020-08-19] MEDS: QUEtiapine FUMARATE 25 MG TABLET PO SCH (21:50)
[2020-08-19] MEDS: PRAMIPEXOLE DIHYDROCHLORIDE 0.5 MG TABLET PO SCH (21:50)
[2020-08-20] MEDS: methylPREDNISolone NA SUCC 40 MG/1 ML VIAL IVPUSH SCH ×3 (01:59→17:19)
[2020-08-20] MEDS: PRAMIPEXOLE DIHYDROCHLORIDE 0.25 MG TABLET PO SCH (06:08)
[2020-08-20] MEDS: FUROSEMIDE 40 MG/4 ML INJECTABLE VIAL IVPUSH SCH (06:08)
[2020-08-20 08:14] LABS: HEMATOCRIT 40.4 % (32.4-45.2); HEMOGLOBIN 13.6 GM/dL (10.7-15.3); MCHC 33.6 g/dl (32.0-36.0); MEAN CELL VOLUME 89.4 fl (80-96); PLATELET COUNT 385 10^3/uL (134-434); RBC 4.52 M/mm3 (3.60-5.2); RDW 14.7 % (11.6-15.6); WHITE BLOOD COUNT 10.9 K/mm3 (4.0-10.0)
[2020-08-20] MEDS: ALBUTEROL SO4 2.5/IPRATROPIUM 0.5 INH SOL 3 ML VIAL.NEB. NEB SCH ×4 (08:23→20:26)
[2020-08-20 08:31] LABS: ALBUMIN 3.3 g/dl (3.4-5.0); CALCIUM 8.7 mg/dL (8.5-10.1)
[2020-08-20 08:32] LABS: BLOOD UREA NITROGEN 38.6 mg/dL (7-18); MAGNESIUM 2.4 mg/dL (1.8-2.4)
[2020-08-20 08:35] LABS: CREATININE 1.1 mg/dL (0.55-1.3); PHOSPHOROUS 4.5 mg/dL (2.5-4.9)
[2020-08-20 08:36] LABS: BILIRUBIN,TOTAL 0.5 mg/dL (0.2-1); TOT PROT 7.4 g/dl (6.4-8.2)
[2020-08-20] MEDS ORDERED: PT OWN MED DRAWER 7, Y5N ONE ×2 (08:59→15:03)
[2020-08-20] MEDS: ENOXAPARIN NA (PORCINE) 40 MG/0.4 ML DISP.SYRIN SQ SCH (09:12)
[2020-08-20] MEDS: DONEPEZIL HCL 10 MG TABLET (FP) PO SCH (09:13)
[2020-08-20] MEDS: CITALOPRAM HYDROBROMIDE 20 MG TABLET PO SCH (09:13)
[2020-08-20] MEDS: AZITHROMYCIN 250 MG TABLET PO SCH (09:13)
[2020-08-20] MEDS: BUDESONIDE/FORMETEROL FUMARATE 160/4.5 mcg INHALER IH SCH ×2 (09:14→21:06)
[2020-08-20] MEDS ORDERED: methylPREDNISolone NA SUCC 40 MG/1 ML VIAL IVPUSH SCH (10:00)
[2020-08-20] MEDS: QUEtiapine FUMARATE 25 MG TABLET PO SCH (21:04)
[2020-08-20] MEDS: DIVALPROEX SODIUM 250 MG TABLET E.C. PO SCH (21:04)
[2020-08-20] MEDS: PRAMIPEXOLE DIHYDROCHLORIDE 0.5 MG TABLET PO SCH (22:02)
[2020-08-21] MEDS: methylPREDNISolone NA SUCC 40 MG/1 ML VIAL IVPUSH SCH ×3 (01:08→21:10)
[2020-08-21] MEDS: PRAMIPEXOLE DIHYDROCHLORIDE 0.25 MG TABLET PO SCH (06:13)
[2020-08-21] MEDS: ALBUTEROL SO4 2.5/IPRATROPIUM 0.5 INH SOL 3 ML VIAL.NEB. NEB SCH ×4 (07:36→20:57)
[2020-08-21 08:19] LABS: HEMATOCRIT 39.7 % (32.4-45.2); HEMOGLOBIN 13.5 GM/dL (10.7-15.3); MCH 29.9 pg (25.7-33.7); MCHC 33.9 g/dl (32.0-36.0); MEAN PLT VOLUME 7.5 fl (7.5-11.1); PLATELET COUNT 401 10^3/uL (134-434); RBC 4.51 M/mm3 (3.60-5.2); RDW 14.7 % (11.6-15.6); WHITE BLOOD COUNT 9.6 K/mm3 (4.0-10.0)
[2020-08-21 08:48] LABS: CALCIUM 8.6 mg/dL (8.5-10.1); MAGNESIUM 2.6 mg/dL (1.8-2.4)
[2020-08-21 08:49] LABS: BLOOD UREA NITROGEN 36.6 mg/dL (7-18)
[2020-08-21 08:52] LABS: PHOSPHOROUS 4.3 mg/dL (2.5-4.9)
[2020-08-21] MEDS ORDERED: FUROSEMIDE 40 MG TABLET (FP) PO SCH (10:00)
[2020-08-21] MEDS ORDERED: FUROSEMIDE 40 MG/4 ML INJECTABLE VIAL IVPUSH SCH (10:00)
[2020-08-21] MEDS: DONEPEZIL HCL 10 MG TABLET (FP) PO SCH (10:04)
[2020-08-21] MEDS: CITALOPRAM HYDROBROMIDE 20 MG TABLET PO SCH (10:04)
[2020-08-21] MEDS: ENOXAPARIN NA (PORCINE) 40 MG/0.4 ML DISP.SYRIN SQ SCH (10:04)
[2020-08-21] MEDS: BUDESONIDE/FORMETEROL FUMARATE 160/4.5 mcg INHALER IH SCH ×2 (10:05→21:12)
[2020-08-21] MEDS ORDERED: PT OWN MED DRAWER 7, Y5N ONE (20:46)
[2020-08-21] MEDS: DIVALPROEX SODIUM 250 MG TABLET E.C. PO SCH (21:11)
[2020-08-21] MEDS: QUEtiapine FUMARATE 25 MG TABLET PO SCH (21:11)
[2020-08-21] MEDS: PRAMIPEXOLE DIHYDROCHLORIDE 0.5 MG TABLET PO SCH (21:11)
[2020-08-22] MEDS: PRAMIPEXOLE DIHYDROCHLORIDE 0.25 MG TABLET PO SCH (06:00)
[2020-08-22] MEDS ORDERED: DONEPEZIL HCL 10 MG TABLET (FP) PO PRN (06:44)
[2020-08-22] MEDS ORDERED: POLYETHYLENE GLYCOL 3350 119 GM BTL PO PRN (06:45)
[2020-08-22] MEDS: ALBUTEROL SO4 2.5/IPRATROPIUM 0.5 INH SOL 3 ML VIAL.NEB. NEB SCH ×4 (07:50→20:08)
[2020-08-22 08:35] LABS: ALBUMIN 2.8 g/dl (3.4-5.0); BLOOD UREA NITROGEN 37.3 mg/dL (7-18)
[2020-08-22 08:38] LABS: CREATININE 0.9 mg/dL (0.55-1.3)
[2020-08-22 08:39] LABS: BILIRUBIN,TOTAL 0.9 mg/dL (0.2-1); TOT PROT 6.4 g/dl (6.4-8.2)
[2020-08-22] MEDS: ENOXAPARIN NA (PORCINE) 40 MG/0.4 ML DISP.SYRIN SQ SCH (09:36)
[2020-08-22] MEDS: CITALOPRAM HYDROBROMIDE 20 MG TABLET PO SCH (09:36)
[2020-08-22] MEDS: methylPREDNISolone NA SUCC 40 MG/1 ML VIAL IVPUSH SCH ×2 (09:36→21:17)
[2020-08-22] MEDS: BUDESONIDE/FORMETEROL FUMARATE 160/4.5 mcg INHALER IH SCH ×2 (09:37→21:17)
[2020-08-22] MEDS: DOCUSATE SODIUM 100 MG CAPSULE (FP) PO PRN (09:50)
[2020-08-22] MEDS ORDERED: DOCUSATE SODIUM 100 MG CAPSULE (FP) PO SCH (10:00)
[2020-08-22] MEDS ORDERED: PT OWN MED DRAWER 7, Y5N ONE ×2 (10:02→20:51)
[2020-08-22] MEDS ORDERED: ONDANSETRON 4 MG/2 ML VIAL IVPUSH PRN (14:44)
[2020-08-22] MEDS ORDERED: MELATONIN 5 MG TABLETS PO PRN (16:56)
[2020-08-22] MEDS: QUEtiapine FUMARATE 25 MG TABLET PO SCH (21:16)
[2020-08-22] MEDS: DIVALPROEX SODIUM 250 MG TABLET E.C. PO SCH (21:16)
[2020-08-22] MEDS: PRAMIPEXOLE DIHYDROCHLORIDE 0.5 MG TABLET PO SCH (21:18)
[2020-08-22] MEDS: DONEPEZIL HCL 10 MG TABLET (FP) PO SCH (21:26)
[2020-08-23] MEDS: PRAMIPEXOLE DIHYDROCHLORIDE 0.25 MG TABLET PO SCH (06:10)
[2020-08-23 08:08] LABS: BASO % 0.1 % (0-2.0); HEMOGLOBIN 12.6 GM/dL (10.7-15.3); LYMPH % 12.4 % (8-40); MCH 29.2 pg (25.7-33.7); MCHC 33.1 g/dl (32.0-36.0); MEAN CELL VOLUME 88.5 fl (80-96); MEAN PLT VOLUME 8.1 fl (7.5-11.1); NEUT % 81.5 % (42.8-82.8); PLATELET COUNT 369 10^3/uL (134-434); RDW 14.8 % (11.6-15.6); WHITE BLOOD COUNT 12.3 K/mm3 (4.0-10.0)
[2020-08-23 08:38] LABS: BLOOD UREA NITROGEN 35.1 mg/dL (7-18)
[2020-08-23 08:39] LABS: ALBUMIN 2.9 g/dl (3.4-5.0); CALCIUM 7.9 mg/dL (8.5-10.1); MAGNESIUM 2.5 mg/dL (1.8-2.4)
[2020-08-23 08:42] LABS: PHOSPHOROUS 3.9 mg/dL (2.5-4.9)
[2020-08-23 08:43] LABS: BILIRUBIN,TOTAL 0.6 mg/dL (0.2-1); TOT PROT 6.2 g/dl (6.4-8.2)
[2020-08-23] MEDS: ALBUTEROL SO4 2.5/IPRATROPIUM 0.5 INH SOL 3 ML VIAL.NEB. NEB SCH ×4 (08:50→20:48)
[2020-08-23] MEDS ORDERED: methylPREDNISolone NA SUCC 40 MG/1 ML VIAL IVPUSH SCH (10:00)
[2020-08-23] MEDS: CITALOPRAM HYDROBROMIDE 20 MG TABLET PO SCH (10:08)
[2020-08-23] MEDS: BUDESONIDE/FORMETEROL FUMARATE 160/4.5 mcg INHALER IH SCH ×2 (10:12→21:26)
[2020-08-23] MEDS: ENOXAPARIN NA (PORCINE) 40 MG/0.4 ML DISP.SYRIN SQ SCH (11:37)
[2020-08-23] MEDS: DOCUSATE SODIUM 100 MG CAPSULE (FP) PO PRN (11:42)
[2020-08-23] MEDS: DONEPEZIL HCL 10 MG TABLET (FP) PO SCH (21:23)
[2020-08-23] MEDS: QUEtiapine FUMARATE 25 MG TABLET PO SCH (21:23)
[2020-08-23] MEDS: DIVALPROEX SODIUM 250 MG TABLET E.C. PO SCH (21:23)
[2020-08-23] MEDS: PRAMIPEXOLE DIHYDROCHLORIDE 0.5 MG TABLET PO SCH (21:24)
[2020-08-24] MEDS: PRAMIPEXOLE DIHYDROCHLORIDE 0.25 MG TABLET PO SCH (06:14)
[2020-08-24] MEDS: ALBUTEROL SO4 2.5/IPRATROPIUM 0.5 INH SOL 3 ML VIAL.NEB. NEB SCH ×2 (08:01→11:53)
[2020-08-24 08:08] LABS: HEMATOCRIT 37.1 % (32.4-45.2); HEMOGLOBIN 12.1 GM/dL (10.7-15.3); MCH 29.3 pg (25.7-33.7); MCHC 32.6 g/dl (32.0-36.0); MEAN CELL VOLUME 89.7 fl (80-96); MEAN PLT VOLUME 8.8 fl (7.5-11.1); PLATELET COUNT 293 10^3/uL (134-434); RBC 4.14 M/mm3 (3.60-5.2); RDW 14.8 % (11.6-15.6)
[2020-08-24 08:39] LABS: BLOOD UREA NITROGEN 30.9 mg/dL (7-18); CALCIUM 8.1 mg/dL (8.5-10.1)
[2020-08-24 08:40] LABS: MAGNESIUM 2.3 mg/dL (1.8-2.4)
[2020-08-24 08:43] LABS: PHOSPHOROUS 3.5 mg/dL (2.5-4.9)
[2020-08-24] MEDS: CITALOPRAM HYDROBROMIDE 20 MG TABLET PO SCH (09:13)
[2020-08-24] MEDS: BUDESONIDE/FORMETEROL FUMARATE 160/4.5 mcg INHALER IH SCH (09:13)
[2020-08-24] MEDS: ENOXAPARIN NA (PORCINE) 40 MG/0.4 ML DISP.SYRIN SQ SCH (09:13)
[2020-08-24] MEDS ORDERED: predniSONE 20 MG TABLET (UD) PO SCH (10:00)
[2020-08-24 10:06] VITALS: BP 160/86; PULSE 89; TEMP 98.7
== END 2020-08-24 12:32 | disposition home or self-care (01) | DRG 291 ==
LOC: JER 10:55 → JERBED 13:14 → J4W 21:27
PROVIDERS: ATTEND Internal Medicine
DX: I11.0 Hypertensive heart disease with heart failure (principal); I50.31 Acute diastolic (congestive) heart failure; J44.1 Chronic obstructive pulmonary disease with (acute) exacerbation; I47.1 Supraventricular tachycardia; F41.8 Other specified anxiety disorders; K59.09 Other constipation; F31.9 Bipolar disorder, unspecified; Z68.35 Body mass index [BMI] 35.0-35.9, adult; E66.01 Morbid (severe) obesity due to excess calories
CPT/HCPCS: 36415; 36600; 71045-TC-FY; 71250-TC; 80048; 80053; 80061; 82803; 83036; 83721; 83735; 83880; 84100; 84443; 84484; 85025; 85027; 93005; 93010; 93306-TC; 93970-TC; 94640; 94660; 94761; 97116-GP; 97161-GP; 99285-25; C9803; U0003; U0005

== ENCOUNTER 2021-04-29 16:45 | Inpatient (IN) | payer OTHER ==
[2021-04-29] MEDS ORDERED: ALBUTEROL SO4 2.5/IPRATROPIUM 0.5 INH SOL 3 ML VIAL.NEB. NEB ONE ×2 (17:29→18:32)
[2021-04-29 18:57] LABS: VENOUS BASE EXCESS 11.2 mmol/L (-2-2); VENOUS O2 SATURATION 84.6 % (70-80); VENOUS PCO2 51.4 mmHg (38-52); VENOUS PH 7.469 (7.310-7.410)
[2021-04-29 19:53] LABS: BASO % 0.5 % (0-2.0); LYMPH % 13.4 % (8-40); MCH 29.5 pg (25.7-33.7); MCHC 33.4 g/dl (32.0-36.0); MEAN CELL VOLUME 88.4 fl (80-96); MEAN PLT VOLUME 8.1 fl (7.5-11.1); MONO % 5.3 % (3.8-10.2); NEUT % 80.8 % (42.8-82.8); PLATELET COUNT 312 10^3/uL (134-434); RBC 4.07 M/mm3 (3.60-5.2); RDW 15.1 % (11.6-15.6); WHITE BLOOD COUNT 13.6 K/mm3 (4.0-10.0)
[2021-04-29] MEDS ORDERED: ALBUTEROL SO4 HFA INHALER IH PRN (20:26)
[2021-04-29 21:57] LABS: CHLORIDE 93 mmol/L (98-107); SODIUM 138 mmol/L (136-145)
[2021-04-29 21:59] LABS: CALCIUM 8.7 mg/dL (8.5-10.1)
[2021-04-29 22:00] LABS: ANION GAP 10 MMOL/L (8-16); BLOOD UREA NITROGEN 25.5 mg/dL (7-18); CO2 34 mmol/L (21-32); GLUCOSE,RANDOM 125 mg/dL (74-106)
[2021-04-29 22:03] LABS: CREATININE 1.2 mg/dL (0.55-1.3); SGOT/AST 14 U/L (15-37); SGPT/ALT 15 U/L (13-61)
[2021-04-29 22:04] LABS: BILIRUBIN,TOTAL 0.4 mg/dL (0.2-1)
[2021-04-29 22:09] LABS: ALK PHOS 74 U/L (45-117); TOT PROT 6.6 g/dl (6.4-8.2)
[2021-04-29 22:56] LABS: N-TERMINAL BNP 380.3 pg/ml (5-125)
[2021-04-30] MEDS ORDERED: ALBUTEROL SO4 2.5/IPRATROPIUM 0.5 INH SOL 3 ML VIAL.NEB. NEB PRN ×2 (01:17→19:24)
[2021-04-30] MEDS ORDERED: AZITHROMYCIN IVPB 500 MG in DEXTROSE 5%-WATER - 250 ML IVPB ONE (01:19)
[2021-04-30] MEDS: methylPREDNISolone NA SUCC 40 MG/1 ML VIAL IVPUSH SCH ×3 (01:59→21:07)
[2021-04-30] MEDS ORDERED: methylPREDNISolone NA SUCC 40 MG/1 ML VIAL ONE (02:01)
[2021-04-30] MEDS ORDERED: AZITHROMYCIN IVPB 500 MG/250 ML BAG IVPB ONE (02:01)
[2021-04-30] MEDS: FUROSEMIDE 40 MG TABLET (FP) PO SCH ×2 (06:02→14:25)
[2021-04-30] MEDS ORDERED: FUROSEMIDE 40 MG TABLET (FP) ONE (06:03)
[2021-04-30 09:38] LABS: HEMATOCRIT 36.3 % (32.4-45.2); HEMOGLOBIN 12.5 GM/dL (10.7-15.3); MCH 30.1 pg (25.7-33.7); MCHC 34.5 g/dl (32.0-36.0); MEAN CELL VOLUME 87.4 fl (80-96); MEAN PLT VOLUME 8.2 fl (7.5-11.1); PLATELET COUNT 287 10^3/uL (134-434); RBC 4.15 M/mm3 (3.60-5.2); RDW 15.5 % (11.6-15.6); WHITE BLOOD COUNT 9.9 K/mm3 (4.0-10.0)
[2021-04-30 09:46] LABS: CALCIUM 9.1 mg/dL (8.5-10.1); MAGNESIUM 2.1 mg/dL (1.8-2.4)
[2021-04-30 09:47] LABS: BLOOD UREA NITROGEN 20.5 mg/dL (7-18)
[2021-04-30 09:48] LABS: ALBUMIN 3.2 g/dl (3.4-5.0)
[2021-04-30 09:50] LABS: PHOSPHOROUS 3.3 mg/dL (2.5-4.9)
[2021-04-30 09:51] LABS: BILIRUBIN,TOTAL 0.7 mg/dL (0.2-1); TOT PROT 6.9 g/dl (6.4-8.2)
[2021-04-30] MEDS ORDERED: ROFLUMILAST 500 MCG TABLET PO SCH (10:00)
[2021-04-30] MEDS ORDERED: CITALOPRAM HYDROBROMIDE 20 MG TABLET PO SCH (10:00)
[2021-04-30] MEDS ORDERED: ENOXAPARIN NA (PORCINE) 40 MG/0.4 ML DISP.SYRIN SQ SCH (10:00)
[2021-04-30 10:56] LABS: ANISOCYTOSIS 0; HELMET CELLS 0; HOWELL-JOLLY BODIES 0; MACROCYTOSIS 0; OVALOCYTE 0; ROULEAU 0; SICKELED CELLS 0; TARGET CELLS 0; TEAR DROP CELLS 0; TOXIC GRANULATION 0
[2021-04-30 10:59] LABS: URINE APPEARANCE CLEAR; URINE BILIRUBIN NEGATIVE (NEGATIVE); URINE COLOR YELLOW; URINE GLUCOSE (UA) NEGATIVE (NEGATIVE); URINE KETONE NEGATIVE (NEGATIVE); URINE LEUK ESTERASE NEGATIVE (NEGATIVE); URINE NITRITE NEGATIVE (NEGATIVE); URINE PROTEIN NEGATIVE (NEGATIVE); URINE UROBILINOGEN 0.2 mg/dL (0.2-1.0)
[2021-04-30 11:05] LABS: COCAINE, UR NEGATIVE (NEGATIVE); METHADONE, UR NEGATIVE (NEGATIVE); OPIATES, URI NEGATIVE (NEGATIVE); PHENCYCLIDINE,URINE NEGATIVE (NEGATIVE); URINE AMPHETAMINES NEGATIVE (NEGATIVE); URINE BARBITURATES NEGATIVE (NEGATIVE); URINE BENZODIAZEPINES NEGATIVE (NEGATIVE)
[2021-04-30] MEDS ORDERED: LORazepam 0.5 MG TABLET PO PRN ×2 (15:04→19:24)
[2021-04-30] MEDS ORDERED: POTASSIUM CHLORIDE TABS 20 MEQ TABLET.ER (FP) PO ONE ×2 (15:31→20:00)
[2021-04-30] MEDS ORDERED: POTASSIUM CHLORIDE ORAL LIQUID 20 MEQ/15 ML PO ONE ×2 (15:40→19:00)
[2021-04-30] MEDS ORDERED: amLODIPine BESYLATE 5 MG TABLET (FP) PO ONE (16:00)
[2021-04-30] MEDS ORDERED: QUEtiapine FUMARATE 25 MG TABLET ONE (21:01)
[2021-04-30] MEDS: DIVALPROEX SODIUM 250 MG TABLET E.C. PO SCH (21:07)
[2021-04-30] MEDS: DONEPEZIL HCL 10 MG TABLET (FP) PO SCH (21:07)
[2021-04-30] MEDS: QUEtiapine FUMARATE 50 MG TABLET PO SCH (21:07)
[2021-04-30] MEDS ORDERED: methylPREDNISolone NA SUCC 40 MG/1 ML VIAL IVPUSH SCH (22:00)
[2021-04-30] MEDS ORDERED: DONEPEZIL HCL 10 MG TABLET (FP) PO SCH (22:00)
[2021-04-30] MEDS ORDERED: DIVALPROEX SODIUM 250 MG TABLET E.C. PO SCH (22:00)
[2021-04-30] MEDS ORDERED: QUEtiapine FUMARATE 50 MG TABLET PO SCH ×2 (22:00)
[2021-05-01] MEDS: FUROSEMIDE 40 MG TABLET (FP) PO SCH ×2 (05:50→13:30)
[2021-05-01 07:52] LABS: CALCIUM 9.1 mg/dL (8.5-10.1); MAGNESIUM 2.4 mg/dL (1.8-2.4)
[2021-05-01 07:57] LABS: CREATININE 1.2 mg/dL (0.55-1.3); PHOSPHOROUS 4.3 mg/dL (2.5-4.9)
[2021-05-01 08:17] LABS: BASO % 0.1 % (0-2.0); HEMATOCRIT 36.2 % (32.4-45.2); HEMOGLOBIN 12.4 GM/dL (10.7-15.3); LYMPH % 6.8 % (8-40); MCH 29.9 pg (25.7-33.7); MCHC 34.2 g/dl (32.0-36.0); MEAN CELL VOLUME 87.5 fl (80-96); MEAN PLT VOLUME 8.7 fl (7.5-11.1); MONO % 2.5 % (3.8-10.2); NEUT % 90.6 % (42.8-82.8); PLATELET COUNT 342 10^3/uL (134-434); RBC 4.13 M/mm3 (3.60-5.2); RDW 15.8 % (11.6-15.6); WHITE BLOOD COUNT 11.7 K/mm3 (4.0-10.0)
[2021-05-01] MEDS ORDERED: QUEtiapine FUMARATE 25 MG TABLET ONE ×2 (09:16→21:50)
[2021-05-01] MEDS: QUEtiapine FUMARATE 50 MG TABLET PO SCH ×2 (09:31→21:58)
[2021-05-01] MEDS: ENOXAPARIN NA (PORCINE) 40 MG/0.4 ML DISP.SYRIN SQ SCH (09:31)
[2021-05-01] MEDS: CITALOPRAM HYDROBROMIDE 20 MG TABLET PO SCH (09:32)
[2021-05-01] MEDS: methylPREDNISolone NA SUCC 40 MG/1 ML VIAL IVPUSH SCH ×2 (09:32→21:58)
[2021-05-01] MEDS ORDERED: AZITHROMYCIN IVPB 250 MG in DEXTROSE 5%-WATER - 250 ML IVPB SCH (10:00)
[2021-05-01] MEDS: AZITHROMYCIN IVPB 250 MG in DEXTROSE 5%-WATER - 250 ML IVPB SCH (10:26)
[2021-05-01] MEDS: POLYETHYLENE GLYCOL (HEALTHYLAX) 3350 17 GM PACKET PO SCH ×2 (13:30→21:58)
[2021-05-01 18:03] VITALS: BMI 29.3
[2021-05-01] MEDS: DONEPEZIL HCL 10 MG TABLET (FP) PO SCH (21:59)
[2021-05-01] MEDS: DIVALPROEX SODIUM 250 MG TABLET E.C. PO SCH (21:59)
[2021-05-02] MEDS: FUROSEMIDE 40 MG TABLET (FP) PO SCH ×2 (06:00→14:00)
[2021-05-02 07:51] LABS: BASO % 0.1 % (0-2.0); HEMATOCRIT 35.9 % (32.4-45.2); HEMOGLOBIN 12.2 GM/dL (10.7-15.3); LYMPH % 9.1 % (8-40); MCH 30.1 pg (25.7-33.7); MEAN CELL VOLUME 88.5 fl (80-96); MEAN PLT VOLUME 8.4 fl (7.5-11.1); MONO % 1.9 % (3.8-10.2); NEUT % 88.9 % (42.8-82.8); PLATELET COUNT 303 10^3/uL (134-434); RBC 4.06 M/mm3 (3.60-5.2); RDW 15.7 % (11.6-15.6); WHITE BLOOD COUNT 11.7 K/mm3 (4.0-10.0)
[2021-05-02 08:14] LABS: BLOOD UREA NITROGEN 41.8 mg/dL (7-18); CALCIUM 9.1 mg/dL (8.5-10.1)
[2021-05-02 08:19] LABS: CREATININE 1.1 mg/dL (0.55-1.3)
[2021-05-02] MEDS ORDERED: QUEtiapine FUMARATE 25 MG TABLET ONE (09:17)
[2021-05-02] MEDS: AZITHROMYCIN IVPB 250 MG in DEXTROSE 5%-WATER - 250 ML IVPB SCH (09:20)
[2021-05-02] MEDS: methylPREDNISolone NA SUCC 40 MG/1 ML VIAL IVPUSH SCH ×2 (09:20→21:10)
[2021-05-02] MEDS: POLYETHYLENE GLYCOL (HEALTHYLAX) 3350 17 GM PACKET PO SCH ×3 (09:21→21:09)
[2021-05-02] MEDS: QUEtiapine FUMARATE 50 MG TABLET PO SCH ×2 (09:21→21:09)
[2021-05-02] MEDS: ENOXAPARIN NA (PORCINE) 40 MG/0.4 ML DISP.SYRIN SQ SCH (09:21)
[2021-05-02] MEDS: CITALOPRAM HYDROBROMIDE 20 MG TABLET PO SCH (09:22)
[2021-05-02] MEDS: MULTIVITAMINS (DAILY MVI) TABLET (FP) PO SCH (09:22)
[2021-05-02] MEDS ORDERED: BISACODYL 10 MG SUPP.RECT PR ONE (15:08)
[2021-05-02] MEDS: DIVALPROEX SODIUM 250 MG TABLET E.C. PO SCH (21:09)
[2021-05-02] MEDS: DONEPEZIL HCL 10 MG TABLET (FP) PO SCH (21:09)
[2021-05-03] MEDS: FUROSEMIDE 40 MG TABLET (FP) PO SCH (05:29)
[2021-05-03] MEDS: POLYETHYLENE GLYCOL (HEALTHYLAX) 3350 17 GM PACKET PO SCH (05:29)
[2021-05-03] MEDS ORDERED: QUEtiapine FUMARATE 25 MG TABLET ONE (08:34)
[2021-05-03 08:43] VITALS: BP 132/66; PULSE 88; TEMP 97.6
[2021-05-03] MEDS: CITALOPRAM HYDROBROMIDE 20 MG TABLET PO SCH (09:04)
[2021-05-03] MEDS: MULTIVITAMINS (DAILY MVI) TABLET (FP) PO SCH (09:04)
[2021-05-03] MEDS: QUEtiapine FUMARATE 50 MG TABLET PO SCH (09:04)
[2021-05-03] MEDS: methylPREDNISolone NA SUCC 40 MG/1 ML VIAL IVPUSH SCH (09:04)
[2021-05-03] MEDS: ENOXAPARIN NA (PORCINE) 40 MG/0.4 ML DISP.SYRIN SQ SCH (09:04)
[2021-05-03] MEDS: AZITHROMYCIN IVPB 250 MG in DEXTROSE 5%-WATER - 250 ML IVPB SCH (09:16)
== END 2021-05-03 13:16 | disposition home or self-care (01) | DRG 190 ==
LOC: JER 16:45 → JERBED 22:09 → OBSVTOIN 04-30 01:13 → J5S 04-30 08:32 → J4S 04-30 15:40
PROVIDERS: ADMIT Hospitalist; ATTEND Internal Medicine
DX: J44.1 Chronic obstructive pulmonary disease with (acute) exacerbation (principal); J96.21 Acute and chronic respiratory failure with hypoxia; R45.851 Suicidal ideations; I50.32 Chronic diastolic (congestive) heart failure; F41.8 Other specified anxiety disorders; F31.9 Bipolar disorder, unspecified; K59.00 Constipation, unspecified; R30.0 Dysuria; R35.0 Frequency of micturition; Z86.73 Personal history of transient ischemic attack (TIA), and cerebral infarction without residual deficits; Z99.81 Dependence on supplemental oxygen; Z85.3 Personal history of malignant neoplasm of breast; Z85.118 Personal history of other malignant neoplasm of bronchus and lung; Z85.828 Personal history of other malignant neoplasm of skin
CPT/HCPCS: 36415; 71045-TC-FY; 71250-TC; 80048; 80053; 80307; 81003; 82803; 83735; 83880; 84100; 84443; 84484; 85025; 87086; 93005; 93010; 97116-GP; 99285-25; C9803-CS; G0378; U0003; U0005

== ENCOUNTER 2021-10-12 11:28 | Inpatient (IN) | payer OTHER ==
[2021-10-12] MEDS ORDERED: ALBUTEROL SO4 2.5/IPRATROPIUM 0.5 INH SOL 3 ML VIAL.NEB. NEB ONE ×2 (12:16→12:18)
[2021-10-12] MEDS ORDERED: methylPREDNISolone NA SUCC 125 MG/2 ML VIAL IVPUSH ONE (12:16)
[2021-10-12] MEDS ORDERED: methylPREDNISolone NA SUCC 125 MG/2 ML VIAL ONE (12:39)
[2021-10-12 12:56] LABS: BASO % 0.6 % (0-2.0); EOS % 0.1 % (0-4.5); HEMATOCRIT 36.8 % (32.4-45.2); HEMOGLOBIN 12.2 GM/dL (10.7-15.3); LYMPH % 13.9 % (8-40); MCH 29.3 pg (25.7-33.7); MEAN CELL VOLUME 88.7 fl (80-96); MONO % 7.3 % (3.8-10.2); NEUT % 78.1 % (42.8-82.8); PLATELET COUNT 327 10^3/uL (134-434); RBC 4.15 M/mm3 (3.60-5.2); RDW 14.9 % (11.6-15.6); WHITE BLOOD COUNT 10.9 K/mm3 (4.0-10.0)
[2021-10-12 13:24] LABS: ALBUMIN 2.9 g/dl (3.4-5.0); BLOOD UREA NITROGEN 22.1 mg/dL (7-18)
[2021-10-12 13:30] LABS: CREATININE 1.3 mg/dL (0.55-1.3)
[2021-10-12 13:31] LABS: BILIRUBIN,TOTAL 0.6 mg/dL (0.2-1)
[2021-10-12 13:32] LABS: TOT PROT 6.3 g/dl (6.4-8.2)
[2021-10-12 13:34] LABS: CALCIUM 8.6 mg/dL (8.5-10.1)
[2021-10-12] MEDS ORDERED: AZITHROMYCIN IVPB 500 MG in DEXTROSE 5%-WATER - 250 ML IVPB ONE (14:31)
[2021-10-12] MEDS ORDERED: POTASSIUM CHLORIDE TABS 20 MEQ TABLET.ER (FP) PO ONE ×2 (14:37→15:02)
[2021-10-12] MEDS ORDERED: AZITHROMYCIN IVPB 500 MG/250 ML BAG IVPB ONE (15:02)
[2021-10-12] MEDS: ALBUTEROL SO4 2.5/IPRATROPIUM 0.5 INH SOL 3 ML VIAL.NEB. NEB SCH ×3 (16:45→23:17)
[2021-10-12] MEDS ORDERED: methylPREDNISolone NA SUCC 40 MG/1 ML VIAL ONE (18:25)
[2021-10-12] MEDS: methylPREDNISolone NA SUCC 40 MG/1 ML VIAL IVPUSH SCH (18:37)
[2021-10-12] MEDS: QUEtiapine FUMARATE 50 MG TABLET PO SCH (21:43)
[2021-10-12] MEDS: DONEPEZIL HCL 10 MG TABLET (FP) PO SCH (21:44)
[2021-10-12] MEDS ORDERED: DIVALPROEX SODIUM 250 MG TABLET E.C. PO SCH ×2 (22:00)
[2021-10-12] MEDS: PRAMIPEXOLE DIHYDROCHLORIDE 0.5 MG TABLET PO SCH (22:33)
[2021-10-12 23:31] VITALS: BMI 31.1
[2021-10-13] MEDS ORDERED: MELATONIN 5 MG TABLETS PO PRN (00:33)
[2021-10-13] MEDS: methylPREDNISolone NA SUCC 40 MG/1 ML VIAL IVPUSH SCH ×3 (01:27→17:11)
[2021-10-13] MEDS: ALBUTEROL SO4 2.5/IPRATROPIUM 0.5 INH SOL 3 ML VIAL.NEB. NEB SCH ×5 (04:30→20:31)
[2021-10-13] MEDS: FUROSEMIDE 40 MG TABLET (FP) PO SCH ×2 (05:12→14:42)
[2021-10-13] MEDS: QUEtiapine FUMARATE 50 MG TABLET PO SCH ×2 (09:39→21:00)
[2021-10-13] MEDS: DIVALPROEX SODIUM 500 MG TABLET E.C. PO SCH ×2 (09:39→20:59)
[2021-10-13] MEDS: CITALOPRAM HYDROBROMIDE 20 MG TABLET PO SCH (09:39)
[2021-10-13] MEDS: ENOXAPARIN NA (PORCINE) 40 MG/0.4 ML DISP.SYRIN SQ SCH (09:39)
[2021-10-13 09:58] LABS: INR 0.97 (0.83-1.09); PROTHROMBIN TIME (PATIENT) 11.2 SEC (9.7-13.0)
[2021-10-13] MEDS ORDERED: AZITHROMYCIN IVPB 250 MG in DEXTROSE 5%-WATER - 250 ML IVPB SCH (10:00)
[2021-10-13 10:01] LABS: ACTIVATED PTT 20.8 SECONDS (25.2-36.5)
[2021-10-13] MEDS: DOXYCYCLINE HYCLATE 100 MG CAPSULE PO SCH (11:06)
[2021-10-13] MEDS: POTASSIUM CHLORIDE TABS 20 MEQ TABLET.ER (FP) PO SCH (11:06)
[2021-10-13 12:25] LABS: BASO % 0.1 % (0-2.0); HEMATOCRIT 34.1 % (32.4-45.2); HEMOGLOBIN 11.2 GM/dL (10.7-15.3); LYMPH % 4.5 % (8-40); MCH 29.3 pg (25.7-33.7); MCHC 32.8 g/dl (32.0-36.0); MEAN CELL VOLUME 89.3 fl (80-96); MEAN PLT VOLUME 8.4 fl (7.5-11.1); MONO % 4.5 % (3.8-10.2); NEUT % 90.9 % (42.8-82.8); PLATELET COUNT 286 10^3/uL (134-434); RBC 3.81 M/mm3 (3.60-5.2); RDW 15.2 % (11.6-15.6); WHITE BLOOD COUNT 18.8 K/mm3 (4.0-10.0)
[2021-10-13 12:49] LABS: CALCIUM 8.3 mg/dL (8.5-10.1)
[2021-10-13 12:50] LABS: ALBUMIN 2.7 g/dl (3.4-5.0); BLOOD UREA NITROGEN 27.8 mg/dL (7-18)
[2021-10-13 12:53] LABS: CREATININE 1.3 mg/dL (0.55-1.3); PHOSPHOROUS 3.1 mg/dL (2.5-4.9)
[2021-10-13 12:55] LABS: BILIRUBIN,TOTAL 0.5 mg/dL (0.2-1)
[2021-10-13 17:01] LABS: PH,URINE 5.5 (5.0-8.0); URINE APPEARANCE CLEAR; URINE BILIRUBIN NEGATIVE (NEGATIVE); URINE COLOR YELLOW; URINE GLUCOSE (UA) NEGATIVE (NEGATIVE); URINE KETONE NEGATIVE (NEGATIVE); URINE LEUK ESTERASE NEGATIVE (NEGATIVE); URINE NITRITE NEGATIVE (NEGATIVE); URINE PROTEIN NEGATIVE (NEGATIVE); URINE UROBILINOGEN 0.2 mg/dL (0.2-1.0)
[2021-10-13] MEDS: DONEPEZIL HCL 10 MG TABLET (FP) PO SCH (20:59)
[2021-10-13] MEDS: PRAMIPEXOLE DIHYDROCHLORIDE 0.5 MG TABLET PO SCH (20:59)
[2021-10-13] MEDS: BUDESONIDE/FORMETEROL FUMARATE 160/4.5 mcg INHALER IH SCH (21:01)
[2021-10-13] MEDS: MELATONIN 5 MG TABLETS PO SCH (22:19)
[2021-10-14] MEDS: ALBUTEROL SO4 2.5/IPRATROPIUM 0.5 INH SOL 3 ML VIAL.NEB. NEB SCH ×6 (01:00→20:05)
[2021-10-14] MEDS: methylPREDNISolone NA SUCC 40 MG/1 ML VIAL IVPUSH SCH ×4 (01:36→22:23)
[2021-10-14] MEDS: FUROSEMIDE 40 MG TABLET (FP) PO SCH (05:14)
[2021-10-14 09:53] LABS: HEMATOCRIT 35.9 % (32.4-45.2); HEMOGLOBIN 11.9 GM/dL (10.7-15.3); MCH 29.7 pg (25.7-33.7); MEAN CELL VOLUME 90.1 fl (80-96); MEAN PLT VOLUME 8.4 fl (7.5-11.1); PLATELET COUNT 318 10^3/uL (134-434); RBC 3.99 M/mm3 (3.60-5.2); RDW 14.9 % (11.6-15.6); WHITE BLOOD COUNT 18.9 K/mm3 (4.0-10.0)
[2021-10-14 10:32] LABS: BLOOD UREA NITROGEN 31.7 mg/dL (7-18); CALCIUM 8.8 mg/dL (8.5-10.1)
[2021-10-14 10:36] LABS: CREATININE 1.4 mg/dL (0.55-1.3)
[2021-10-14] MEDS: ENOXAPARIN NA (PORCINE) 40 MG/0.4 ML DISP.SYRIN SQ SCH (10:57)
[2021-10-14] MEDS: DIVALPROEX SODIUM 500 MG TABLET E.C. PO SCH ×2 (10:57→23:11)
[2021-10-14] MEDS: QUEtiapine FUMARATE 50 MG TABLET PO SCH ×2 (10:57→22:24)
[2021-10-14] MEDS: CITALOPRAM HYDROBROMIDE 20 MG TABLET PO SCH (10:57)
[2021-10-14] MEDS: POTASSIUM CHLORIDE TABS 20 MEQ TABLET.ER (FP) PO SCH (10:57)
[2021-10-14] MEDS: DOXYCYCLINE HYCLATE 100 MG CAPSULE PO SCH (10:58)
[2021-10-14] MEDS: BUDESONIDE/FORMETEROL FUMARATE 160/4.5 mcg INHALER IH SCH ×2 (10:58→22:25)
[2021-10-14 11:34] LABS: ANISOCYTOSIS 2+; MACROCYTOSIS 2+
[2021-10-14] MEDS ORDERED: BISACODYL 10 MG SUPP.RECT PR ONE (13:29)
[2021-10-14] MEDS ORDERED: ALBUTEROL SO4 2.5/IPRATROPIUM 0.5 INH SOL 3 ML VIAL.NEB. NEB PRN (13:33)
[2021-10-14] MEDS: POLYETHYLENE GLYCOL (HEALTHYLAX) 3350 17 GM PACKET PO PRN (14:08)
[2021-10-14] MEDS ORDERED: SENNOSIDES/DOCUSATE COMBO (SENNA PLUS) TABLET (UD) PO SCH (22:00)
[2021-10-14] MEDS: MELATONIN 5 MG TABLETS PO SCH (22:22)
[2021-10-14] MEDS: PRAMIPEXOLE DIHYDROCHLORIDE 0.5 MG TABLET PO SCH (22:22)
[2021-10-14] MEDS: DONEPEZIL HCL 10 MG TABLET (FP) PO SCH (22:23)
[2021-10-15] MEDS: ALBUTEROL SO4 2.5/IPRATROPIUM 0.5 INH SOL 3 ML VIAL.NEB. NEB SCH ×7 (00:04→23:57)
[2021-10-15] MEDS: methylPREDNISolone NA SUCC 40 MG/1 ML VIAL IVPUSH SCH ×4 (02:55→20:58)
[2021-10-15] MEDS: DOXYCYCLINE HYCLATE 100 MG CAPSULE PO SCH (09:43)
[2021-10-15] MEDS: ENOXAPARIN NA (PORCINE) 40 MG/0.4 ML DISP.SYRIN SQ SCH (09:43)
[2021-10-15] MEDS: CITALOPRAM HYDROBROMIDE 20 MG TABLET PO SCH (09:43)
[2021-10-15] MEDS: POTASSIUM CHLORIDE TABS 20 MEQ TABLET.ER (FP) PO SCH (09:44)
[2021-10-15] MEDS: BUDESONIDE/FORMETEROL FUMARATE 160/4.5 mcg INHALER IH SCH ×2 (09:44→22:49)
[2021-10-15] MEDS: QUEtiapine FUMARATE 50 MG TABLET PO SCH ×2 (09:44→22:46)
[2021-10-15] MEDS: DIVALPROEX SODIUM 500 MG TABLET E.C. PO SCH ×2 (09:44→22:45)
[2021-10-15 10:50] LABS: HEMATOCRIT 37.5 % (32.4-45.2); HEMOGLOBIN 12.3 GM/dL (10.7-15.3); MCH 29.3 pg (25.7-33.7); MCHC 32.9 g/dl (32.0-36.0); MEAN CELL VOLUME 89.3 fl (80-96); MEAN PLT VOLUME 8.7 fl (7.5-11.1); PLATELET COUNT 322 10^3/uL (134-434); RDW 15.2 % (11.6-15.6); WHITE BLOOD COUNT 16.9 K/mm3 (4.0-10.0)
[2021-10-15 11:06] LABS: BLOOD UREA NITROGEN 34.8 mg/dL (7-18)
[2021-10-15 11:09] LABS: CREATININE 1.3 mg/dL (0.55-1.3)
[2021-10-15 11:56] LABS: ANISOCYTOSIS 0; MACROCYTOSIS 0
[2021-10-15] MEDS: PANTOPRAZOLE 40 MG TABLET PO SCH (18:03)
[2021-10-15] MEDS: PRAMIPEXOLE DIHYDROCHLORIDE 0.5 MG TABLET PO SCH (20:59)
[2021-10-15] MEDS: MELATONIN 5 MG TABLETS PO SCH (22:45)
[2021-10-15] MEDS: DONEPEZIL HCL 10 MG TABLET (FP) PO SCH (22:45)
[2021-10-16] MEDS: methylPREDNISolone NA SUCC 40 MG/1 ML VIAL IVPUSH SCH ×3 (03:19→17:26)
[2021-10-16] MEDS: ALBUTEROL SO4 2.5/IPRATROPIUM 0.5 INH SOL 3 ML VIAL.NEB. NEB SCH ×6 (03:37→23:55)
[2021-10-16] MEDS: POTASSIUM CHLORIDE TABS 20 MEQ TABLET.ER (FP) PO SCH (09:53)
[2021-10-16] MEDS: PANTOPRAZOLE 40 MG TABLET PO SCH (09:53)
[2021-10-16] MEDS: ENOXAPARIN NA (PORCINE) 40 MG/0.4 ML DISP.SYRIN SQ SCH (09:54)
[2021-10-16] MEDS: BUDESONIDE/FORMETEROL FUMARATE 160/4.5 mcg INHALER IH SCH ×2 (09:54→21:35)
[2021-10-16] MEDS: QUEtiapine FUMARATE 50 MG TABLET PO SCH ×2 (09:54→21:34)
[2021-10-16 10:15] LABS: INR 0.97 (0.83-1.09); PROTHROMBIN TIME (PATIENT) 11.2 SEC (9.7-13.0)
[2021-10-16 10:18] LABS: ACTIVATED PTT 23.9 SECONDS (25.2-36.5)
[2021-10-16 10:25] LABS: BASO % 0.1 % (0-2.0); HEMATOCRIT 38.8 % (32.4-45.2); HEMOGLOBIN 12.8 GM/dL (10.7-15.3); LYMPH % 4.4 % (8-40); MCH 29.4 pg (25.7-33.7); MCHC 32.8 g/dl (32.0-36.0); MEAN CELL VOLUME 89.5 fl (80-96); MEAN PLT VOLUME 8.8 fl (7.5-11.1); MONO % 2.3 % (3.8-10.2); NEUT % 93.2 % (42.8-82.8); PLATELET COUNT 349 10^3/uL (134-434); RBC 4.34 M/mm3 (3.60-5.2); RDW 14.8 % (11.6-15.6); WHITE BLOOD COUNT 13.3 K/mm3 (4.0-10.0)
[2021-10-16 10:43] LABS: ALBUMIN 2.7 g/dl (3.4-5.0); BLOOD UREA NITROGEN 36.3 mg/dL (7-18); CALCIUM 8.7 mg/dL (8.5-10.1)
[2021-10-16 10:46] LABS: CREATININE 1.3 mg/dL (0.55-1.3)
[2021-10-16 10:48] LABS: BILIRUBIN,TOTAL 0.6 mg/dL (0.2-1); TOT PROT 6.2 g/dl (6.4-8.2)
[2021-10-16] MEDS: CITALOPRAM HYDROBROMIDE 20 MG TABLET PO SCH (11:24)
[2021-10-16] MEDS: DIVALPROEX SODIUM 500 MG TABLET E.C. PO SCH ×2 (11:24→21:34)
[2021-10-16 12:50] LABS: ANISOCYTOSIS 0; MACROCYTOSIS 0
[2021-10-16] MEDS: DONEPEZIL HCL 10 MG TABLET (FP) PO SCH (21:33)
[2021-10-16] MEDS: MELATONIN 5 MG TABLETS PO SCH (21:34)
[2021-10-16] MEDS: PRAMIPEXOLE DIHYDROCHLORIDE 0.5 MG TABLET PO SCH (22:38)
[2021-10-17] MEDS: methylPREDNISolone NA SUCC 40 MG/1 ML VIAL IVPUSH SCH ×3 (01:20→21:12)
[2021-10-17] MEDS: ALBUTEROL SO4 2.5/IPRATROPIUM 0.5 INH SOL 3 ML VIAL.NEB. NEB SCH ×6 (04:14→20:30)
[2021-10-17] MEDS: CITALOPRAM HYDROBROMIDE 20 MG TABLET PO SCH (09:29)
[2021-10-17] MEDS: ENOXAPARIN NA (PORCINE) 40 MG/0.4 ML DISP.SYRIN SQ SCH (09:29)
[2021-10-17] MEDS: PANTOPRAZOLE 40 MG TABLET PO SCH (09:29)
[2021-10-17] MEDS: QUEtiapine FUMARATE 50 MG TABLET PO SCH ×2 (09:30→21:13)
[2021-10-17] MEDS: BUDESONIDE/FORMETEROL FUMARATE 160/4.5 mcg INHALER IH SCH ×2 (09:30→21:14)
[2021-10-17] MEDS: DIVALPROEX SODIUM 500 MG TABLET E.C. PO SCH ×2 (09:31→21:12)
[2021-10-17 10:12] LABS: BASO % 0.1 % (0-2.0); HEMATOCRIT 38.4 % (32.4-45.2); HEMOGLOBIN 12.6 GM/dL (10.7-15.3); MCH 29.4 pg (25.7-33.7); MCHC 32.9 g/dl (32.0-36.0); MEAN CELL VOLUME 89.5 fl (80-96); MEAN PLT VOLUME 8.5 fl (7.5-11.1); NEUT % 88.9 % (42.8-82.8); PLATELET COUNT 320 10^3/uL (134-434); RBC 4.29 M/mm3 (3.60-5.2); RDW 14.9 % (11.6-15.6); WHITE BLOOD COUNT 10.3 K/mm3 (4.0-10.0)
[2021-10-17 10:34] LABS: CALCIUM 8.8 mg/dL (8.5-10.1)
[2021-10-17 10:35] LABS: ALBUMIN 2.6 g/dl (3.4-5.0); BLOOD UREA NITROGEN 33.6 mg/dL (7-18)
[2021-10-17 10:38] LABS: CREATININE 1.2 mg/dL (0.55-1.3)
[2021-10-17 10:39] LABS: BILIRUBIN,TOTAL 0.6 mg/dL (0.2-1); TOT PROT 5.7 g/dl (6.4-8.2)
[2021-10-17] MEDS: PRAMIPEXOLE DIHYDROCHLORIDE 0.5 MG TABLET PO SCH (19:52)
[2021-10-17] MEDS: DONEPEZIL HCL 10 MG TABLET (FP) PO SCH (21:13)
[2021-10-17] MEDS: MELATONIN 5 MG TABLETS PO SCH (21:13)
[2021-10-18] MEDS: ALBUTEROL SO4 2.5/IPRATROPIUM 0.5 INH SOL 3 ML VIAL.NEB. NEB SCH ×6 (00:01→20:29)
[2021-10-18] MEDS: methylPREDNISolone NA SUCC 40 MG/1 ML VIAL IVPUSH SCH (09:51)
[2021-10-18] MEDS: PANTOPRAZOLE 40 MG TABLET PO SCH (09:51)
[2021-10-18] MEDS: CITALOPRAM HYDROBROMIDE 20 MG TABLET PO SCH (09:51)
[2021-10-18] MEDS: QUEtiapine FUMARATE 50 MG TABLET PO SCH ×2 (09:52→21:14)
[2021-10-18] MEDS: ENOXAPARIN NA (PORCINE) 40 MG/0.4 ML DISP.SYRIN SQ SCH (09:52)
[2021-10-18] MEDS: DIVALPROEX SODIUM 500 MG TABLET E.C. PO SCH ×2 (09:53→21:13)
[2021-10-18] MEDS: BUDESONIDE/FORMETEROL FUMARATE 160/4.5 mcg INHALER IH SCH ×2 (10:00→21:15)
[2021-10-18 10:03] LABS: BASO % 0.1 % (0-2.0); HEMOGLOBIN 13.3 GM/dL (10.7-15.3); LYMPH % 11.8 % (8-40); MCH 30.4 pg (25.7-33.7); MCHC 34.1 g/dl (32.0-36.0); MEAN CELL VOLUME 89.1 fl (80-96); MEAN PLT VOLUME 8.3 fl (7.5-11.1); MONO % 6.2 % (3.8-10.2); NEUT % 81.9 % (42.8-82.8); PLATELET COUNT 296 10^3/uL (134-434); RBC 4.38 M/mm3 (3.60-5.2); RDW 14.5 % (11.6-15.6); WHITE BLOOD COUNT 9.6 K/mm3 (4.0-10.0)
[2021-10-18 10:25] LABS: CALCIUM 8.4 mg/dL (8.5-10.1)
[2021-10-18 10:26] LABS: ALBUMIN 2.7 g/dl (3.4-5.0); BLOOD UREA NITROGEN 27.1 mg/dL (7-18)
[2021-10-18 10:29] LABS: CREATININE 1.1 mg/dL (0.55-1.3)
[2021-10-18 10:30] LABS: BILIRUBIN,TOTAL 0.6 mg/dL (0.2-1)
[2021-10-18] MEDS ORDERED: ACETAMINOPHEN 325 MG TABLET (FP) PO ONE (15:38)
[2021-10-18] MEDS: PRAMIPEXOLE DIHYDROCHLORIDE 0.5 MG TABLET PO SCH (20:30)
[2021-10-18] MEDS: DONEPEZIL HCL 10 MG TABLET (FP) PO SCH (21:14)
[2021-10-18] MEDS: MELATONIN 5 MG TABLETS PO SCH (21:14)
[2021-10-19] MEDS: POLYETHYLENE GLYCOL (HEALTHYLAX) 3350 17 GM PACKET PO PRN (06:13)
[2021-10-19] MEDS: ALBUTEROL SO4 2.5/IPRATROPIUM 0.5 INH SOL 3 ML VIAL.NEB. NEB SCH ×4 (08:00→20:01)
[2021-10-19 09:13] LABS: BASO % 0.1 % (0-2.0); EOS % 0.1 % (0-4.5); HEMATOCRIT 39.6 % (32.4-45.2); HEMOGLOBIN 13.2 GM/dL (10.7-15.3); LYMPH % 24.1 % (8-40); MCH 29.4 pg (25.7-33.7); MCHC 33.2 g/dl (32.0-36.0); MEAN CELL VOLUME 88.5 fl (80-96); MEAN PLT VOLUME 8.5 fl (7.5-11.1); MONO % 9.3 % (3.8-10.2); NEUT % 66.4 % (42.8-82.8); PLATELET COUNT 273 10^3/uL (134-434); RBC 4.48 M/mm3 (3.60-5.2); WHITE BLOOD COUNT 10.2 K/mm3 (4.0-10.0)
[2021-10-19] MEDS: methylPREDNISolone NA SUCC 40 MG/1 ML VIAL IVPUSH SCH ×2 (09:22→12:02)
[2021-10-19] MEDS: PANTOPRAZOLE 40 MG TABLET PO SCH (09:22)
[2021-10-19] MEDS: ENOXAPARIN NA (PORCINE) 40 MG/0.4 ML DISP.SYRIN SQ SCH (09:22)
[2021-10-19] MEDS: CITALOPRAM HYDROBROMIDE 20 MG TABLET PO SCH (09:22)
[2021-10-19] MEDS: QUEtiapine FUMARATE 50 MG TABLET PO SCH ×2 (09:22→22:25)
[2021-10-19] MEDS: BUDESONIDE/FORMETEROL FUMARATE 160/4.5 mcg INHALER IH SCH ×2 (09:24→22:32)
[2021-10-19] MEDS: DIVALPROEX SODIUM 500 MG TABLET E.C. PO SCH ×2 (09:34→22:27)
[2021-10-19 09:47] LABS: ALBUMIN 2.6 g/dl (3.4-5.0); BLOOD UREA NITROGEN 26.3 mg/dL (7-18); CALCIUM 8.2 mg/dL (8.5-10.1)
[2021-10-19 09:50] LABS: TOT PROT 5.6 g/dl (6.4-8.2)
[2021-10-19 09:51] LABS: BILIRUBIN,TOTAL 0.4 mg/dL (0.2-1)
[2021-10-19] MEDS: ACETAMINOPHEN 1000 MG/100 ML BAG IVPB ONE ×3 (12:58→13:25)
[2021-10-19] MEDS ORDERED: ACETAMINOPHEN 1000 MG/100 ML BAG IVPB ONE (13:00)
[2021-10-19] MEDS: PRAMIPEXOLE DIHYDROCHLORIDE 0.5 MG TABLET PO SCH (20:57)
[2021-10-19] MEDS: MELATONIN 5 MG TABLETS PO SCH (22:25)
[2021-10-19] MEDS: DONEPEZIL HCL 10 MG TABLET (FP) PO SCH (22:25)
[2021-10-20] MEDS: ALBUTEROL SO4 2.5/IPRATROPIUM 0.5 INH SOL 3 ML VIAL.NEB. NEB SCH ×4 (08:30→20:13)
[2021-10-20] MEDS: CITALOPRAM HYDROBROMIDE 20 MG TABLET PO SCH (09:03)
[2021-10-20] MEDS: QUEtiapine FUMARATE 50 MG TABLET PO SCH ×2 (09:03→21:02)
[2021-10-20] MEDS: PANTOPRAZOLE 40 MG TABLET PO SCH (09:03)
[2021-10-20] MEDS: methylPREDNISolone NA SUCC 40 MG/1 ML VIAL IVPUSH SCH (09:04)
[2021-10-20] MEDS: ENOXAPARIN NA (PORCINE) 40 MG/0.4 ML DISP.SYRIN SQ SCH (09:04)
[2021-10-20] MEDS: DIVALPROEX SODIUM 500 MG TABLET E.C. PO SCH ×2 (09:05→21:02)
[2021-10-20] MEDS: BUDESONIDE/FORMETEROL FUMARATE 160/4.5 mcg INHALER IH SCH ×2 (09:05→21:04)
[2021-10-20 10:57] LABS: BASO % 0.1 % (0-2.0); EOS % 0.1 % (0-4.5); HEMATOCRIT 37.1 % (32.4-45.2); HEMOGLOBIN 12.1 GM/dL (10.7-15.3); LYMPH % 25.3 % (8-40); MCH 29.3 pg (25.7-33.7); MCHC 32.6 g/dl (32.0-36.0); MEAN CELL VOLUME 89.8 fl (80-96); MEAN PLT VOLUME 8.4 fl (7.5-11.1); MONO % 9.1 % (3.8-10.2); NEUT % 65.4 % (42.8-82.8); PLATELET COUNT 253 10^3/uL (134-434); RBC 4.13 M/mm3 (3.60-5.2); RDW 14.6 % (11.6-15.6); WHITE BLOOD COUNT 9.9 K/mm3 (4.0-10.0)
[2021-10-20 11:14] LABS: CALCIUM 7.9 mg/dL (8.5-10.1)
[2021-10-20 11:15] LABS: ALBUMIN 2.4 g/dl (3.4-5.0)
[2021-10-20] MEDS ORDERED: predniSONE 10 MG TABLET (UD) PO SCH (11:15)
[2021-10-20 11:18] LABS: CREATININE 0.8 mg/dL (0.55-1.3)
[2021-10-20 11:20] LABS: BILIRUBIN,TOTAL 0.5 mg/dL (0.2-1); TOT PROT 5.2 g/dl (6.4-8.2)
[2021-10-20] MEDS ORDERED: predniSONE 20 MG TABLET (UD) PO SCH (11:30)
[2021-10-20] MEDS: MELATONIN 5 MG TABLETS PO SCH (21:02)
[2021-10-20] MEDS: DONEPEZIL HCL 10 MG TABLET (FP) PO SCH (21:02)
[2021-10-20] MEDS: PRAMIPEXOLE DIHYDROCHLORIDE 0.5 MG TABLET PO SCH (21:03)
[2021-10-20 22:17] VITALS: BP 135/72; PULSE 109; RESP 20; TEMP 98.5
[2021-10-21] MEDS ORDERED: predniSONE 20 MG TABLET (UD) PO SCH (10:00)
[2021-10-23] MEDS ORDERED: predniSONE 10 MG TABLET (UD) PO SCH (10:00)
[2021-10-24] MEDS ORDERED: predniSONE 10 MG TABLET (UD) PO SCH (10:00)
[2021-10-26] MEDS ORDERED: predniSONE 20 MG TABLET (UD) PO SCH (10:00)
[2021-10-27] MEDS ORDERED: predniSONE 20 MG TABLET (UD) PO SCH (10:00)
[2021-10-29] MEDS ORDERED: predniSONE 10 MG TABLET (UD) PO SCH (10:00)
[2021-10-30] MEDS ORDERED: predniSONE 10 MG TABLET (UD) PO SCH (10:00)
[2021-11-01] MEDS ORDERED: predniSONE 5 MG TABLET (UD) PO SCH (10:00)
[2021-11-02] MEDS ORDERED: predniSONE 5 MG TABLET (UD) PO SCH (10:00)
== END 2021-10-20 22:15 | disposition home health service (06) | DRG 191 ==
LOC: JER 11:28 → JERBED 14:52 → J6S 18:48
PROVIDERS: ADMIT Internal Medicine; ATTEND Internal Medicine
DX: J44.1 Chronic obstructive pulmonary disease with (acute) exacerbation (principal); I50.32 Chronic diastolic (congestive) heart failure; J96.11 Chronic respiratory failure with hypoxia; F31.9 Bipolar disorder, unspecified; R42 Dizziness and giddiness; F41.8 Other specified anxiety disorders; K59.00 Constipation, unspecified; E87.6 Hypokalemia; R33.9 Retention of urine, unspecified; E04.9 Nontoxic goiter, unspecified; Z99.81 Dependence on supplemental oxygen; Z85.118 Personal history of other malignant neoplasm of bronchus and lung; Z85.3 Personal history of malignant neoplasm of breast; Z86.73 Personal history of transient ischemic attack (TIA), and cerebral infarction without residual deficits; Z85.820 Personal history of malignant melanoma of skin
CPT/HCPCS: 36415; 71045-TC-FY; 71250-TC; 80048; 80053; 81003; 82962; 83735; 84100; 84443; 84484; 85025; 85610; 85730; 87086; 87804; 87899; 93005; 93010; 94640; 97116-GP; 97162-GP; 99285-25; C9803-CS; U0003; U0005

== ENCOUNTER 2021-10-21 00:50 | Inpatient (IN) | payer OTHER ==
[2021-10-21 04:20] VITALS: BMI 39.5
[2021-10-21] MEDS ORDERED: ALBUTEROL SO4 HFA INHALER IH PRN (04:40)
[2021-10-21 05:54] VITALS: RESP 18
[2021-10-21] MEDS ORDERED: FUROSEMIDE 40 MG TABLET (FP) PO SCH (06:00)
[2021-10-21] MEDS ORDERED: ROFLUMILAST 500 MCG TABLET PO SCH (10:00)
[2021-10-21] MEDS ORDERED: CITALOPRAM HYDROBROMIDE 20 MG TABLET PO SCH (10:00)
[2021-10-21] MEDS ORDERED: QUEtiapine FUMARATE 50 MG TABLET PO SCH (10:00)
[2021-10-21] MEDS ORDERED: ENOXAPARIN NA (PORCINE) 40 MG/0.4 ML DISP.SYRIN SQ SCH (10:00)
[2021-10-21] MEDS ORDERED: predniSONE 20 MG TABLET (UD) PO SCH (10:00)
[2021-10-21] MEDS ORDERED: DIVALPROEX SODIUM 500 MG TABLET E.C. PO SCH (10:00)
[2021-10-21] MEDS ORDERED: POTASSIUM CHLORIDE TABS 10 MEQ TABLET.ER (FP) PO SCH (10:00)
[2021-10-21 12:42] VITALS: BP 128/66; PULSE 88; TEMP 98.2
[2021-10-21] MEDS ORDERED: DONEPEZIL HCL 10 MG TABLET (FP) PO SCH (22:00)
[2021-10-21] MEDS ORDERED: PRAMIPEXOLE DIHYDROCHLORIDE 0.5 MG TABLET PO SCH (22:00)
== END 2021-10-21 13:25 | disposition home health service (06) | DRG 191 ==
LOC: JER 00:50 → JERBED 00:55 → J6S 01:56 → OBSVTOIN 04:36
PROVIDERS: ADMIT Internal Medicine; ATTEND Internal Medicine
DX: J44.1 Chronic obstructive pulmonary disease with (acute) exacerbation (principal); F31.89 Other bipolar disorder; G20 Parkinson's disease; Z85.118 Personal history of other malignant neoplasm of bronchus and lung; Z85.3 Personal history of malignant neoplasm of breast
CPT/HCPCS: 99285-25; G0378

== ENCOUNTER 2021-11-18 21:01 | Inpatient (IN) | payer OTHER ==
[2021-11-18] MEDS ORDERED: LIDOCAINE 5% TOPICAL PATCH TP ONE (21:40)
[2021-11-18] MEDS ORDERED: ACETAMINOPHEN 1000 MG/100 ML BAG IVPB ONE (21:40)
[2021-11-18] MEDS ORDERED: LIDOCAINE 5% TOPICAL PATCH ONE (21:56)
[2021-11-18] MEDS ORDERED: ACETAMINOPHEN INJECTION 100 ML IVPB ONE (21:56)
[2021-11-18 21:57] LABS: BASO % 0.5 % (0-2.0); EOS % 0.8 % (0-4.5); HEMATOCRIT 34.4 % (32.4-45.2); HEMOGLOBIN 11.3 GM/dL (10.7-15.3); LYMPH % 16.7 % (8-40); MCH 29.4 pg (25.7-33.7); MCHC 32.9 g/dl (32.0-36.0); MEAN CELL VOLUME 89.2 fl (80-96); MEAN PLT VOLUME 7.2 fl (7.5-11.1); MONO % 11.7 % (3.8-10.2); NEUT % 70.3 % (42.8-82.8); PLATELET COUNT 405 10^3/uL (134-434); RBC 3.86 M/mm3 (3.60-5.2); RDW 16.2 % (11.6-15.6); WHITE BLOOD COUNT 8.1 K/mm3 (4.0-10.0)
[2021-11-18 22:02] LABS: PROTHROMBIN TIME (PATIENT) 11.5 SEC (9.7-13.0)
[2021-11-18] MEDS: LIDOCAINE PATCH REMOVAL MC SCH (22:04)
[2021-11-18 22:05] LABS: ACTIVATED PTT 29.5 SECONDS (25.2-36.5)
[2021-11-18 22:24] LABS: CALCIUM 8.7 mg/dL (8.5-10.1)
[2021-11-18 22:25] LABS: ALBUMIN 2.5 g/dl (3.4-5.0); BLOOD UREA NITROGEN 12.9 mg/dL (7-18)
[2021-11-18 22:30] LABS: BILIRUBIN,TOTAL 0.5 mg/dL (0.2-1); TOT PROT 6.1 g/dl (6.4-8.2)
[2021-11-18 22:32] LABS: N-TERMINAL BNP 372.3 pg/ml (5-125)
[2021-11-18] MEDS ORDERED: dilTIAZem HCL 50 MG/10 ML - 10 ML VIAL IVPUSH ONE (22:35)
[2021-11-18] MEDS ORDERED: CLINDAMYCIN 600MG PREMIX IVPB 600 MG/50 ML BAG IVPB ONE ×2 (22:38→22:40)
[2021-11-18] MEDS ORDERED: dilTIAZem HCL 125 MG/25 ML - 25 ML VIAL ONE (22:41)
[2021-11-19] MEDS ORDERED: methylPREDNISolone NA SUCC 40 MG/1 ML VIAL IVPUSH SCH (04:10)
[2021-11-19 04:46] LABS: ALLENS TEST POSITIVE; ARTERIAL BLD GAS O2 SATURATION 98.1 % (95-98)
[2021-11-19] MEDS ORDERED: methylPREDNISolone NA SUCC 40 MG/1 ML VIAL ONE ×3 (05:50→18:01)
[2021-11-19] MEDS ORDERED: dilTIAZem HCL 30 MG TABLET PO ONE (05:59)
[2021-11-19] MEDS ORDERED: dilTIAZem HCL 50 MG/10 ML - 10 ML VIAL ONE (06:26)
[2021-11-19 07:36] LABS: ALBUMIN 2.5 g/dl (3.4-5.0); BLOOD UREA NITROGEN 13.1 mg/dL (7-18); CALCIUM 8.4 mg/dL (8.5-10.1); MAGNESIUM 2.5 mg/dL (1.8-2.4)
[2021-11-19 07:39] LABS: PHOSPHOROUS 4.7 mg/dL (2.5-4.9)
[2021-11-19 07:42] LABS: BILIRUBIN,TOTAL 0.3 mg/dL (0.2-1)
[2021-11-19 08:00] LABS: BASO % 0.6 % (0-2.0); EOS % 0.9 % (0-4.5); HEMATOCRIT 33.1 % (32.4-45.2); HEMOGLOBIN 10.9 GM/dL (10.7-15.3); LYMPH % 21.1 % (8-40); MCH 29.8 pg (25.7-33.7); MCHC 32.9 g/dl (32.0-36.0); MEAN CELL VOLUME 90.6 fl (80-96); MEAN PLT VOLUME 7.5 fl (7.5-11.1); NEUT % 64.4 % (42.8-82.8); PLATELET COUNT 384 10^3/uL (134-434); RBC 3.65 M/mm3 (3.60-5.2); RDW 16.2 % (11.6-15.6); WHITE BLOOD COUNT 8.4 K/mm3 (4.0-10.0)
[2021-11-19] MEDS ORDERED: ENOXAPARIN NA (PORCINE) 40 MG/0.4 ML DISP.SYRIN SQ ONE (08:28)
[2021-11-19] MEDS ORDERED: AZITHROMYCIN IVPB 500 MG/250 ML BAG IVPB ONE (08:29)
[2021-11-19 08:47] LABS: URINE APPEARANCE CLEAR; URINE BILIRUBIN NEGATIVE (NEGATIVE); URINE COLOR YELLOW; URINE GLUCOSE (UA) NEGATIVE (NEGATIVE); URINE KETONE NEGATIVE (NEGATIVE); URINE LEUK ESTERASE NEGATIVE (NEGATIVE); URINE NITRITE NEGATIVE (NEGATIVE); URINE PROTEIN TRACE (NEGATIVE); URINE UROBILINOGEN 0.2 mg/dL (0.2-1.0)
[2021-11-19] MEDS: AZITHROMYCIN IVPB 500 MG/250 ML BAG IVPB SCH (09:05)
[2021-11-19] MEDS: ENOXAPARIN NA (PORCINE) 40 MG/0.4 ML DISP.SYRIN SQ SCH (09:05)
[2021-11-19] MEDS: methylPREDNISolone NA SUCC 40 MG/1 ML VIAL IVPUSH SCH ×2 (09:05→18:30)
[2021-11-19] MEDS: LEVALBUTEROL HCL 0.31 MG/3 ML VIAL.NEB IH SCH ×3 (10:55→21:48)
[2021-11-19] MEDS: QUEtiapine FUMARATE 50 MG TABLET PO SCH ×2 (10:56→22:25)
[2021-11-19] MEDS: DIVALPROEX SODIUM 250 MG TABLET E.C. PO SCH ×2 (10:56→22:24)
[2021-11-19] MEDS: CITALOPRAM HYDROBROMIDE 20 MG TABLET PO SCH (10:56)
[2021-11-19] MEDS ORDERED: ACETAMINOPHEN 1000 MG/100 ML BAG IVPB PRN (16:19)
[2021-11-19] MEDS: DONEPEZIL HCL 10 MG TABLET (FP) PO SCH (22:24)
[2021-11-19] MEDS: PRAMIPEXOLE DIHYDROCHLORIDE 0.5 MG TABLET PO SCH (22:25)
[2021-11-19] MEDS: FUROSEMIDE 40 MG TABLET (FP) PO SCH (22:25)
[2021-11-19] MEDS: LIDOCAINE PATCH REMOVAL MC SCH (22:33)
[2021-11-19] MEDS: POLYETHYLENE GLYCOL (HEALTHYLAX) 3350 17 GM PACKET PO SCH (22:33)
[2021-11-20] MEDS: methylPREDNISolone NA SUCC 40 MG/1 ML VIAL IVPUSH SCH ×3 (01:04→17:15)
[2021-11-20 04:09] VITALS: BMI 32.3
[2021-11-20] MEDS: LEVALBUTEROL HCL 0.31 MG/3 ML VIAL.NEB IH SCH ×3 (07:50→20:25)
[2021-11-20 07:55] LABS: BASO % 0.4 % (0-2.0); HEMOGLOBIN 10.5 GM/dL (10.7-15.3); LYMPH % 7.5 % (8-40); MCH 29.6 pg (25.7-33.7); MCHC 32.9 g/dl (32.0-36.0); MEAN PLT VOLUME 7.6 fl (7.5-11.1); MONO % 2.8 % (3.8-10.2); NEUT % 89.3 % (42.8-82.8); PLATELET COUNT 352 10^3/uL (134-434); RBC 3.56 M/mm3 (3.60-5.2); RDW 16.3 % (11.6-15.6); WHITE BLOOD COUNT 10.7 K/mm3 (4.0-10.0)
[2021-11-20 08:16] LABS: CALCIUM 8.3 mg/dL (8.5-10.1)
[2021-11-20 08:17] LABS: ALBUMIN 2.4 g/dl (3.4-5.0); BLOOD UREA NITROGEN 21.7 mg/dL (7-18)
[2021-11-20 08:20] LABS: CREATININE 0.9 mg/dL (0.55-1.3); MAGNESIUM 2.7 mg/dL (1.8-2.4)
[2021-11-20 08:22] LABS: BILIRUBIN,TOTAL 0.3 mg/dL (0.2-1); TOT PROT 5.6 g/dl (6.4-8.2)
[2021-11-20] MEDS: CITALOPRAM HYDROBROMIDE 20 MG TABLET PO SCH (09:40)
[2021-11-20] MEDS: FUROSEMIDE 40 MG TABLET (FP) PO SCH ×2 (09:40→21:18)
[2021-11-20] MEDS: QUEtiapine FUMARATE 50 MG TABLET PO SCH ×2 (09:41→21:18)
[2021-11-20] MEDS: ENOXAPARIN NA (PORCINE) 40 MG/0.4 ML DISP.SYRIN SQ SCH (09:41)
[2021-11-20] MEDS: POLYETHYLENE GLYCOL (HEALTHYLAX) 3350 17 GM PACKET PO SCH ×3 (09:42→21:26)
[2021-11-20] MEDS: AZITHROMYCIN IVPB 500 MG/250 ML BAG IVPB SCH (09:42)
[2021-11-20] MEDS: DIVALPROEX SODIUM 250 MG TABLET E.C. PO SCH ×2 (09:46→21:18)
[2021-11-20] MEDS: LIDOCAINE 5% TOPICAL PATCH TP SCH (13:47)
[2021-11-20] MEDS: METHYL SALICYLATE/MENTHOL OINT 30 GM TUBE TP SCH ×2 (14:15→21:26)
[2021-11-20] MEDS ORDERED: clonazePAM 2 MG TABLET PO ONE (18:07)
[2021-11-20] MEDS: ACETAMINOPHEN 1000 MG/100 ML BAG IVPB PRN (18:14)
[2021-11-20] MEDS: DONEPEZIL HCL 10 MG TABLET (FP) PO SCH (21:17)
[2021-11-20] MEDS: PRAMIPEXOLE DIHYDROCHLORIDE 0.5 MG TABLET PO SCH (21:18)
[2021-11-21] MEDS: methylPREDNISolone NA SUCC 40 MG/1 ML VIAL IVPUSH SCH ×3 (01:04→22:40)
[2021-11-21] MEDS: LIDOCAINE PATCH REMOVAL MC SCH ×2 (01:04→22:38)
[2021-11-21] MEDS: LEVALBUTEROL HCL 0.31 MG/3 ML VIAL.NEB IH SCH ×4 (07:39→20:48)
[2021-11-21 07:51] LABS: HEMATOCRIT 33.2 % (32.4-45.2); HEMOGLOBIN 10.9 GM/dL (10.7-15.3); MCH 29.3 pg (25.7-33.7); MCHC 32.8 g/dl (32.0-36.0); MEAN CELL VOLUME 89.3 fl (80-96); PLATELET COUNT 372 10^3/uL (134-434); RBC 3.71 M/mm3 (3.60-5.2); RDW 16.2 % (11.6-15.6); WHITE BLOOD COUNT 14.3 K/mm3 (4.0-10.0)
[2021-11-21 08:17] LABS: ALBUMIN 2.4 g/dl (3.4-5.0); BLOOD UREA NITROGEN 28.1 mg/dL (7-18); MAGNESIUM 2.5 mg/dL (1.8-2.4)
[2021-11-21 08:19] LABS: BILIRUBIN,TOTAL 0.4 mg/dL (0.2-1)
[2021-11-21 08:20] LABS: TOT PROT 5.8 g/dl (6.4-8.2)
[2021-11-21 08:58] LABS: ANISOCYTOSIS 0; MACROCYTOSIS 0
[2021-11-21] MEDS: AZITHROMYCIN IVPB 500 MG/250 ML BAG IVPB SCH (09:33)
[2021-11-21] MEDS: CITALOPRAM HYDROBROMIDE 20 MG TABLET PO SCH (09:33)
[2021-11-21] MEDS: ENOXAPARIN NA (PORCINE) 40 MG/0.4 ML DISP.SYRIN SQ SCH (09:33)
[2021-11-21] MEDS: DIVALPROEX SODIUM 250 MG TABLET E.C. PO SCH ×2 (09:34→22:37)
[2021-11-21] MEDS: FUROSEMIDE 40 MG TABLET (FP) PO SCH ×2 (09:34→22:36)
[2021-11-21] MEDS: QUEtiapine FUMARATE 50 MG TABLET PO SCH ×2 (09:34→22:37)
[2021-11-21] MEDS: POLYETHYLENE GLYCOL (HEALTHYLAX) 3350 17 GM PACKET PO SCH ×2 (09:34→22:38)
[2021-11-21] MEDS: LIDOCAINE 5% TOPICAL PATCH TP SCH (09:35)
[2021-11-21] MEDS: METHYL SALICYLATE/MENTHOL OINT 30 GM TUBE TP SCH ×2 (09:35→22:37)
[2021-11-21] MEDS: clonazePAM 2 MG TABLET PO PRN ×2 (11:57→22:37)
[2021-11-21] MEDS ORDERED: methylPREDNISolone NA SUCC 40 MG/1 ML VIAL IVPUSH SCH (15:30)
[2021-11-21] MEDS: DONEPEZIL HCL 10 MG TABLET (FP) PO SCH (22:37)
[2021-11-21] MEDS: PRAMIPEXOLE DIHYDROCHLORIDE 0.5 MG TABLET PO SCH (22:37)
[2021-11-22] MEDS: LEVALBUTEROL HCL 0.31 MG/3 ML VIAL.NEB IH SCH ×3 (08:35→20:27)
[2021-11-22 08:41] LABS: HEMATOCRIT 32.6 % (32.4-45.2); HEMOGLOBIN 10.9 GM/dL (10.7-15.3); MCHC 33.4 g/dl (32.0-36.0); MEAN CELL VOLUME 89.7 fl (80-96); MEAN PLT VOLUME 7.6 fl (7.5-11.1); PLATELET COUNT 336 10^3/uL (134-434); RBC 3.63 M/mm3 (3.60-5.2); RDW 15.9 % (11.6-15.6)
[2021-11-22 09:01] LABS: ALBUMIN 2.3 g/dl (3.4-5.0); BLOOD UREA NITROGEN 40.7 mg/dL (7-18); MAGNESIUM 2.5 mg/dL (1.8-2.4)
[2021-11-22 09:05] LABS: BILIRUBIN,TOTAL 0.3 mg/dL (0.2-1); TOT PROT 5.4 g/dl (6.4-8.2)
[2021-11-22] MEDS: ENOXAPARIN NA (PORCINE) 40 MG/0.4 ML DISP.SYRIN SQ SCH (09:56)
[2021-11-22] MEDS: LIDOCAINE 5% TOPICAL PATCH TP SCH (09:56)
[2021-11-22] MEDS: methylPREDNISolone NA SUCC 40 MG/1 ML VIAL IVPUSH SCH ×2 (09:57→21:43)
[2021-11-22] MEDS: QUEtiapine FUMARATE 50 MG TABLET PO SCH ×2 (09:57→21:43)
[2021-11-22] MEDS: CITALOPRAM HYDROBROMIDE 20 MG TABLET PO SCH (09:57)
[2021-11-22] MEDS: FUROSEMIDE 40 MG TABLET (FP) PO SCH ×2 (09:57→21:43)
[2021-11-22] MEDS: POLYETHYLENE GLYCOL (HEALTHYLAX) 3350 17 GM PACKET PO SCH ×2 (09:57→21:43)
[2021-11-22] MEDS: DIVALPROEX SODIUM 250 MG TABLET E.C. PO SCH ×2 (09:58→21:42)
[2021-11-22] MEDS: AZITHROMYCIN IVPB 500 MG/250 ML BAG IVPB SCH (10:36)
[2021-11-22] MEDS: METHYL SALICYLATE/MENTHOL OINT 30 GM TUBE TP SCH ×2 (10:36→21:44)
[2021-11-22 10:55] LABS: ANISOCYTOSIS 0; HELMET CELLS 0; HOWELL-JOLLY BODIES 0; MACROCYTOSIS 0; OVALOCYTE 0; SICKELED CELLS 0; TARGET CELLS 0; TEAR DROP CELLS 0; TOXIC GRANULATION 0
[2021-11-22 10:56] LABS: ROULEAU 0
[2021-11-22] MEDS: metoPROLOL SUCCINATE 25 MG TAB.SR.24H (FP) PO SCH (14:41)
[2021-11-22] MEDS: DONEPEZIL HCL 10 MG TABLET (FP) PO SCH (21:43)
[2021-11-22] MEDS: LIDOCAINE PATCH REMOVAL MC SCH (21:43)
[2021-11-22] MEDS: PRAMIPEXOLE DIHYDROCHLORIDE 0.5 MG TABLET PO SCH (21:43)
[2021-11-23] MEDS: LEVALBUTEROL HCL 0.31 MG/3 ML VIAL.NEB IH SCH ×3 (08:15→20:14)
[2021-11-23] MEDS: methylPREDNISolone NA SUCC 40 MG/1 ML VIAL IVPUSH SCH ×2 (10:03→21:40)
[2021-11-23] MEDS: AZITHROMYCIN IVPB 500 MG/250 ML BAG IVPB SCH (10:03)
[2021-11-23] MEDS: CITALOPRAM HYDROBROMIDE 20 MG TABLET PO SCH (10:05)
[2021-11-23] MEDS: metoPROLOL SUCCINATE 25 MG TAB.SR.24H (FP) PO SCH (10:05)
[2021-11-23] MEDS: QUEtiapine FUMARATE 50 MG TABLET PO SCH ×2 (10:05→21:40)
[2021-11-23] MEDS: POLYETHYLENE GLYCOL (HEALTHYLAX) 3350 17 GM PACKET PO SCH ×2 (10:05→21:41)
[2021-11-23] MEDS: METHYL SALICYLATE/MENTHOL OINT 30 GM TUBE TP SCH ×2 (10:06→21:41)
[2021-11-23] MEDS: DIVALPROEX SODIUM 500 MG TABLET E.C. PO SCH ×2 (10:06→21:40)
[2021-11-23] MEDS: ENOXAPARIN NA (PORCINE) 40 MG/0.4 ML DISP.SYRIN SQ SCH (10:10)
[2021-11-23] MEDS: LIDOCAINE 5% TOPICAL PATCH TP SCH (10:10)
[2021-11-23] MEDS: FUROSEMIDE 40 MG TABLET (FP) PO SCH ×2 (10:10→21:41)
[2021-11-23] MEDS: PANTOPRAZOLE 40 MG TABLET PO SCH (10:10)
[2021-11-23 15:56] LABS: BASO % 0.1 % (0-2.0); HEMATOCRIT 34.4 % (32.4-45.2); HEMOGLOBIN 11.3 GM/dL (10.7-15.3); LYMPH % 6.6 % (8-40); MCH 29.3 pg (25.7-33.7); MCHC 32.7 g/dl (32.0-36.0); MEAN CELL VOLUME 89.4 fl (80-96); MONO % 6.5 % (3.8-10.2); NEUT % 86.8 % (42.8-82.8); PLATELET COUNT 376 10^3/uL (134-434); RBC 3.84 M/mm3 (3.60-5.2); WHITE BLOOD COUNT 9.6 K/mm3 (4.0-10.0)
[2021-11-23 16:18] LABS: ALBUMIN 2.3 g/dl (3.4-5.0); BLOOD UREA NITROGEN 40.2 mg/dL (7-18); CALCIUM 8.1 mg/dL (8.5-10.1); MAGNESIUM 2.4 mg/dL (1.8-2.4)
[2021-11-23 16:20] LABS: CREATININE 0.9 mg/dL (0.55-1.3)
[2021-11-23 16:23] LABS: BILIRUBIN,TOTAL 0.2 mg/dL (0.2-1); TOT PROT 5.3 g/dl (6.4-8.2)
[2021-11-23] MEDS: DONEPEZIL HCL 10 MG TABLET (FP) PO SCH (21:40)
[2021-11-23] MEDS: PRAMIPEXOLE DIHYDROCHLORIDE 0.5 MG TABLET PO SCH (21:40)
[2021-11-23] MEDS: LIDOCAINE PATCH REMOVAL MC SCH (21:42)
[2021-11-24 07:52] LABS: BASO % 0.1 % (0-2.0); HEMATOCRIT 35.3 % (32.4-45.2); HEMOGLOBIN 11.8 GM/dL (10.7-15.3); LYMPH % 9.4 % (8-40); MCHC 33.3 g/dl (32.0-36.0); MEAN CELL VOLUME 90.2 fl (80-96); MEAN PLT VOLUME 7.7 fl (7.5-11.1); MONO % 3.9 % (3.8-10.2); NEUT % 86.6 % (42.8-82.8); PLATELET COUNT 345 10^3/uL (134-434); RBC 3.92 M/mm3 (3.60-5.2); RDW 15.7 % (11.6-15.6); WHITE BLOOD COUNT 9.4 K/mm3 (4.0-10.0)
[2021-11-24 08:26] LABS: ALBUMIN 2.4 g/dl (3.4-5.0); BLOOD UREA NITROGEN 43.1 mg/dL (7-18); CALCIUM 8.2 mg/dL (8.5-10.1); MAGNESIUM 2.6 mg/dL (1.8-2.4)
[2021-11-24 08:28] LABS: CREATININE 0.9 mg/dL (0.55-1.3)
[2021-11-24 08:30] LABS: TOT PROT 5.6 g/dl (6.4-8.2)
[2021-11-24 08:33] LABS: BILIRUBIN,TOTAL 0.5 mg/dL (0.2-1)
[2021-11-24] MEDS: LEVALBUTEROL HCL 0.31 MG/3 ML VIAL.NEB IH SCH ×2 (08:46→14:45)
[2021-11-24] MEDS: LIDOCAINE 5% TOPICAL PATCH TP SCH (09:36)
[2021-11-24] MEDS: POLYETHYLENE GLYCOL (HEALTHYLAX) 3350 17 GM PACKET PO SCH ×3 (09:36→21:31)
[2021-11-24] MEDS: methylPREDNISolone NA SUCC 40 MG/1 ML VIAL IVPUSH SCH (09:37)
[2021-11-24] MEDS: DIVALPROEX SODIUM 500 MG TABLET E.C. PO SCH ×2 (09:37→21:29)
[2021-11-24] MEDS: PANTOPRAZOLE 40 MG TABLET PO SCH (09:40)
[2021-11-24] MEDS: metoPROLOL SUCCINATE 25 MG TAB.SR.24H (FP) PO SCH (09:40)
[2021-11-24] MEDS: CITALOPRAM HYDROBROMIDE 20 MG TABLET PO SCH (09:41)
[2021-11-24] MEDS: QUEtiapine FUMARATE 50 MG TABLET PO SCH ×2 (09:41→21:30)
[2021-11-24] MEDS: ENOXAPARIN NA (PORCINE) 40 MG/0.4 ML DISP.SYRIN SQ SCH (09:41)
[2021-11-24] MEDS: FUROSEMIDE 40 MG TABLET (FP) PO SCH ×2 (09:41→21:29)
[2021-11-24] MEDS: METHYL SALICYLATE/MENTHOL OINT 30 GM TUBE TP SCH ×2 (09:41→21:29)
[2021-11-24] MEDS: AZITHROMYCIN IVPB 500 MG/250 ML BAG IVPB SCH (09:42)
[2021-11-24] MEDS: predniSONE 20 MG TABLET (UD) PO SCH (12:02)
[2021-11-24] MEDS: ACETAMINOPHEN 1000 MG/100 ML BAG IVPB PRN (12:04)
[2021-11-24] MEDS: clonazePAM 2 MG TABLET PO PRN (18:20)
[2021-11-24] MEDS: DONEPEZIL HCL 10 MG TABLET (FP) PO SCH (21:30)
[2021-11-24] MEDS: PRAMIPEXOLE DIHYDROCHLORIDE 0.5 MG TABLET PO SCH (21:30)
[2021-11-24] MEDS: LIDOCAINE PATCH REMOVAL MC SCH (21:32)
[2021-11-25] MEDS: clonazePAM 2 MG TABLET PO PRN (05:22)
[2021-11-25] MEDS: LEVALBUTEROL HCL 0.31 MG/3 ML VIAL.NEB IH SCH (07:30)
[2021-11-25 09:11] VITALS: BP 135/52; PULSE 83; RESP 20; TEMP 97.7
[2021-11-25] MEDS: ENOXAPARIN NA (PORCINE) 40 MG/0.4 ML DISP.SYRIN SQ SCH (09:28)
[2021-11-25] MEDS: predniSONE 20 MG TABLET (UD) PO SCH (09:29)
[2021-11-25] MEDS: FUROSEMIDE 40 MG TABLET (FP) PO SCH (09:29)
[2021-11-25] MEDS: metoPROLOL SUCCINATE 25 MG TAB.SR.24H (FP) PO SCH (09:29)
[2021-11-25] MEDS: QUEtiapine FUMARATE 50 MG TABLET PO SCH (09:29)
[2021-11-25] MEDS: DIVALPROEX SODIUM 500 MG TABLET E.C. PO SCH (09:29)
[2021-11-25] MEDS: CITALOPRAM HYDROBROMIDE 20 MG TABLET PO SCH (09:29)
[2021-11-25] MEDS: METHYL SALICYLATE/MENTHOL OINT 30 GM TUBE TP SCH (09:30)
[2021-11-25] MEDS: PANTOPRAZOLE 40 MG TABLET PO SCH (09:30)
[2021-11-25] MEDS: LIDOCAINE 5% TOPICAL PATCH TP SCH (09:30)
[2021-11-25] MEDS: POLYETHYLENE GLYCOL (HEALTHYLAX) 3350 17 GM PACKET PO SCH (09:30)
== END 2021-11-25 11:31 | disposition home or self-care (01) | DRG 191 ==
LOC: JER 21:01 → JERBED 11-19 01:56 → OBSVTOIN 11-19 01:56 → INTOOBSV 11-19 04:22 → OBSVTOIN 11-19 04:22 → J4W 11-19 20:58
PROVIDERS: ADMIT Internal Medicine; ATTEND Nurse Practitioner Family
DX: J44.1 Chronic obstructive pulmonary disease with (acute) exacerbation (principal); I50.30 Unspecified diastolic (congestive) heart failure; J96.11 Chronic respiratory failure with hypoxia; J96.12 Chronic respiratory failure with hypercapnia; L03.116 Cellulitis of left lower limb; F41.9 Anxiety disorder, unspecified; Z85.3 Personal history of malignant neoplasm of breast; K59.09 Other constipation; Z99.81 Dependence on supplemental oxygen; Z85.118 Personal history of other malignant neoplasm of bronchus and lung; F31.9 Bipolar disorder, unspecified; E66.01 Morbid (severe) obesity due to excess calories; I25.10 Atherosclerotic heart disease of native coronary artery without angina pectoris; Z68.34 Body mass index [BMI] 34.0-34.9, adult
CPT/HCPCS: 0241U-QW; 36415; 36600; 70450-TC; 71045-TC-FY; 71275-TC; 72125-TC; 80053; 81003; 82803; 82962; 83735; 83880; 84100; 84443; 84484; 85025; 85610; 85730; 86140; 87086; 93005; 93010; 93306-TC; 93971-TC; 97116-GP; 97162-GP; 99285-25; Q9967

== ENCOUNTER 2021-11-26 16:27 | Inpatient (IN) | payer OTHER ==
[2021-11-26] MEDS ORDERED: DEXAMETHASONE SOD PHOSPHATE 10 MG/1 ML VIAL ONE (16:51)
[2021-11-26] MEDS ORDERED: MAGNESIUM SULFATE IN WATER 2 GM/50 ML IVPB IVPB ONE (16:52)
[2021-11-26] MEDS: ALBUTEROL SO4 2.5/IPRATROPIUM 0.5 INH SOL 3 ML VIAL.NEB. NEB SCH ×2 (17:10→17:25)
[2021-11-26 17:12] VITALS: BMI 32.3
[2021-11-26 17:51] LABS: VENOUS BASE EXCESS 12.7 mmol/L (-2-2); VENOUS O2 SATURATION 82.5 % (70-80); VENOUS PCO2 62.3 mmHg (38-52); VENOUS PH 7.424 (7.310-7.410)
[2021-11-26 18:00] LABS: BASO % 0.2 % (0-2.0); HEMATOCRIT 39.8 % (32.4-45.2); HEMOGLOBIN 12.8 GM/dL (10.7-15.3); LYMPH % 5.7 % (8-40); MCH 28.9 pg (25.7-33.7); MEAN CELL VOLUME 90.3 fl (80-96); MEAN PLT VOLUME 8.6 fl (7.5-11.1); MONO % 8.9 % (3.8-10.2); NEUT % 85.2 % (42.8-82.8); PLATELET COUNT 400 10^3/uL (134-434); RBC 4.41 M/mm3 (3.60-5.2); WHITE BLOOD COUNT 17.3 K/mm3 (4.0-10.0)
[2021-11-26 18:18] LABS: CHLORIDE 94 mmol/L (98-107); SODIUM 141 mmol/L (136-145)
[2021-11-26 18:20] LABS: CALCIUM 8.6 mg/dL (8.5-10.1)
[2021-11-26 18:21] LABS: ALBUMIN 2.6 g/dl (3.4-5.0); BLOOD UREA NITROGEN 43.6 mg/dL (7-18); CO2 42 mmol/L (21-32); GLUCOSE,RANDOM 215 mg/dL (74-106)
[2021-11-26 18:24] LABS: CREATININE 1.1 mg/dL (0.55-1.3); SGOT/AST 94 U/L (15-37); SGPT/ALT 26 U/L (13-61)
[2021-11-26 18:26] LABS: BILIRUBIN,TOTAL 0.5 mg/dL (0.2-1); TOT PROT 6.3 g/dl (6.4-8.2)
[2021-11-26 18:27] LABS: ALK PHOS 71 U/L (45-117)
[2021-11-26 18:29] LABS: N-TERMINAL BNP 701.8 pg/ml (5-125)
[2021-11-26] MEDS ORDERED: AZTREONAM 1 GM in DEXTROSE 5%-WATER - 50 ML IVPB ONE ×2 (18:47→19:45)
[2021-11-26 19:13] LABS: ANION GAP 5 MMOL/L (8-16)
[2021-11-26] MEDS ORDERED: AZTREONAM 1 GM VIAL (RESTRICTED TO ID) ONE (19:22)
[2021-11-26 20:36] LABS: CALCIUM 8.5 mg/dL (8.5-10.1)
[2021-11-26 20:37] LABS: BLOOD UREA NITROGEN 42.9 mg/dL (7-18)
[2021-11-26 20:40] LABS: CREATININE 1.1 mg/dL (0.55-1.3)
[2021-11-26] MEDS ORDERED: ALBUTEROL SO4 2.5/IPRATROPIUM 0.5 INH SOL 3 ML VIAL.NEB. NEB PRN (23:40)
[2021-11-26] MEDS ORDERED: ALBUTEROL SO4 HFA INHALER IH PRN (23:40)
[2021-11-26] MEDS ORDERED: methylPREDNISolone NA SUCC 125 MG/2 ML VIAL IVPUSH ONE (23:45)
[2021-11-27] MEDS ORDERED: methylPREDNISolone NA SUCC 40 MG/1 ML VIAL ONE ×3 (00:30→18:54)
[2021-11-27] MEDS ORDERED: DIVALPROEX SODIUM 500 MG TABLET E.C. ONE ×3 (00:30→21:58)
[2021-11-27] MEDS: DIVALPROEX SODIUM 500 MG TABLET E.C. PO SCH ×3 (00:33→22:21)
[2021-11-27 05:02] VITALS: TEMP 98.1
[2021-11-27] MEDS ORDERED: FUROSEMIDE 40 MG TABLET (FP) ONE ×2 (07:10→14:15)
[2021-11-27] MEDS: FUROSEMIDE 40 MG TABLET (FP) PO SCH ×2 (07:13→14:15)
[2021-11-27] MEDS: INSULIN SLIDING SCALE (NOVOLOG) 1 VIAL SQ SCH ×3 (08:11→17:04)
[2021-11-27 09:22] LABS: HEMATOCRIT 37.1 % (32.4-45.2); HEMOGLOBIN 11.9 GM/dL (10.7-15.3); MCH 29.2 pg (25.7-33.7); MCHC 32.1 g/dl (32.0-36.0); MEAN PLT VOLUME 8.4 fl (7.5-11.1); PLATELET COUNT 333 10^3/uL (134-434); RBC 4.07 M/mm3 (3.60-5.2); RDW 16.3 % (11.6-15.6); WHITE BLOOD COUNT 14.3 K/mm3 (4.0-10.0)
[2021-11-27 09:25] LABS: BLOOD UREA NITROGEN 39.8 mg/dL (7-18)
[2021-11-27 09:26] LABS: CALCIUM 8.6 mg/dL (8.5-10.1)
[2021-11-27 09:29] LABS: CREATININE 0.9 mg/dL (0.55-1.3)
[2021-11-27 09:31] LABS: PHOSPHOROUS 4.3 mg/dL (2.5-4.9)
[2021-11-27] MEDS ORDERED: POTASSIUM CHLORIDE TABS 10 MEQ TABLET.ER (FP) PO SCH (10:00)
[2021-11-27 10:08] LABS: ANISOCYTOSIS 0; HELMET CELLS 0; HOWELL-JOLLY BODIES 0; MACROCYTOSIS 0; OVALOCYTE 0; ROULEAU 0; SICKELED CELLS 0; TARGET CELLS 0; TEAR DROP CELLS 0; TOXIC GRANULATION 0
[2021-11-27] MEDS ORDERED: metoPROLOL SUCCINATE 25 MG TAB.SR.24H (FP) PO ONE (11:53)
[2021-11-27] MEDS ORDERED: CITALOPRAM HYDROBROMIDE 10 MG TABLET ONE (11:53)
[2021-11-27] MEDS ORDERED: POTASSIUM CHLORIDE TABS 10 MEQ TABLET.ER (FP) ONE (11:53)
[2021-11-27] MEDS ORDERED: ENOXAPARIN NA (PORCINE) 40 MG/0.4 ML DISP.SYRIN SQ ONE (11:53)
[2021-11-27] MEDS ORDERED: QUEtiapine FUMARATE 25 MG TABLET ONE ×2 (11:53→21:58)
[2021-11-27] MEDS: QUEtiapine FUMARATE 50 MG TABLET PO SCH ×2 (12:05→22:21)
[2021-11-27] MEDS: methylPREDNISolone NA SUCC 40 MG/1 ML VIAL IVPUSH SCH ×2 (12:05→18:56)
[2021-11-27] MEDS: CITALOPRAM HYDROBROMIDE 20 MG TABLET PO SCH (12:05)
[2021-11-27] MEDS: metoPROLOL SUCCINATE 25 MG TAB.SR.24H (FP) PO SCH (12:05)
[2021-11-27] MEDS: ENOXAPARIN NA (PORCINE) 40 MG/0.4 ML DISP.SYRIN SQ SCH (12:05)
[2021-11-27] MEDS: ROFLUMILAST 500 MCG TABLET PO SCH (14:15)
[2021-11-27] MEDS ORDERED: DONEPEZIL HCL 5 MG TABLET (FP) ONE (21:58)
[2021-11-27] MEDS ORDERED: DONEPEZIL HCL 10 MG TABLET (FP) PO SCH (22:00)
[2021-11-27] MEDS ORDERED: PRAMIPEXOLE DIHYDROCHLORIDE 0.5 MG TABLET PO SCH (22:00)
[2021-11-28] MEDS ORDERED: FUROSEMIDE 40 MG TABLET (FP) ONE ×2 (04:47→15:03)
[2021-11-28 05:04] VITALS: RESP 20
[2021-11-28] MEDS: FUROSEMIDE 40 MG TABLET (FP) PO SCH ×2 (05:04→15:26)
[2021-11-28] MEDS: INSULIN SLIDING SCALE (NOVOLOG) 1 VIAL SQ SCH (07:26)
[2021-11-28 08:46] LABS: BASO % 0.1 % (0-2.0); HEMATOCRIT 36.2 % (32.4-45.2); HEMOGLOBIN 11.7 GM/dL (10.7-15.3); LYMPH % 10.4 % (8-40); MCH 29.2 pg (25.7-33.7); MCHC 32.3 g/dl (32.0-36.0); MEAN CELL VOLUME 90.5 fl (80-96); MEAN PLT VOLUME 8.1 fl (7.5-11.1); MONO % 5.4 % (3.8-10.2); NEUT % 84.1 % (42.8-82.8); PLATELET COUNT 325 10^3/uL (134-434); WHITE BLOOD COUNT 14.1 K/mm3 (4.0-10.0)
[2021-11-28 08:52] VITALS: BP 139/77; PULSE 78
[2021-11-28 09:00] LABS: CHLORIDE 95 mmol/L (98-107); SODIUM 144 mmol/L (136-145)
[2021-11-28 09:06] LABS: CALCIUM 8.8 mg/dL (8.5-10.1)
[2021-11-28 09:07] LABS: BLOOD UREA NITROGEN 46.8 mg/dL (7-18); GLUCOSE,RANDOM 97 mg/dL (74-106); MAGNESIUM 2.7 mg/dL (1.8-2.4)
[2021-11-28 09:08] LABS: ALBUMIN 2.7 g/dl (3.4-5.0)
[2021-11-28 09:09] LABS: SGOT/AST 8 U/L (15-37); SGPT/ALT 20 U/L (13-61)
[2021-11-28 09:10] LABS: BILIRUBIN,TOTAL 0.4 mg/dL (0.2-1); CREATININE 0.8 mg/dL (0.55-1.3); TOT PROT 5.6 g/dl (6.4-8.2)
[2021-11-28 09:11] LABS: ALK PHOS 51 U/L (45-117)
[2021-11-28 09:14] LABS: ANION GAP 4 MMOL/L (8-16); CO2 > 45 mmol/L (21-32)
[2021-11-28] MEDS ORDERED: QUEtiapine FUMARATE 25 MG TABLET ONE (09:36)
[2021-11-28] MEDS ORDERED: CITALOPRAM HYDROBROMIDE 10 MG TABLET ONE (09:36)
[2021-11-28] MEDS ORDERED: DIVALPROEX SODIUM 500 MG TABLET E.C. ONE (09:36)
[2021-11-28] MEDS ORDERED: ENOXAPARIN NA (PORCINE) 40 MG/0.4 ML DISP.SYRIN SQ ONE (09:37)
[2021-11-28] MEDS ORDERED: metoPROLOL SUCCINATE 25 MG TAB.SR.24H (FP) PO ONE (09:39)
[2021-11-28] MEDS: metoPROLOL SUCCINATE 25 MG TAB.SR.24H (FP) PO SCH (09:42)
[2021-11-28] MEDS: DIVALPROEX SODIUM 500 MG TABLET E.C. PO SCH (09:42)
[2021-11-28] MEDS: ENOXAPARIN NA (PORCINE) 40 MG/0.4 ML DISP.SYRIN SQ SCH (09:42)
[2021-11-28] MEDS: CITALOPRAM HYDROBROMIDE 20 MG TABLET PO SCH (09:42)
[2021-11-28] MEDS: ROFLUMILAST 500 MCG TABLET PO SCH (09:42)
[2021-11-28] MEDS: QUEtiapine FUMARATE 50 MG TABLET PO SCH (09:42)
[2021-11-28] MEDS ORDERED: LIDOCAINE 5% TOPICAL PATCH TP SCH (14:30)
[2021-11-28] MEDS ORDERED: ALBUTEROL SO4 2.5/IPRATROPIUM 0.5 INH SOL 3 ML VIAL.NEB. NEB SCH (16:00)
[2021-11-28] MEDS ORDERED: LIDOCAINE PATCH REMOVAL MC SCH (22:00)
[2021-11-29] MEDS ORDERED: predniSONE 20 MG TABLET (UD) PO SCH (10:00)
== END 2021-11-28 18:30 | disposition home or self-care (01) | DRG 191 ==
LOC: JER 16:27 → JERBED 16:49
PROVIDERS: ADMIT Internal Medicine; ATTEND Nurse Practitioner Family
DX: J44.1 Chronic obstructive pulmonary disease with (acute) exacerbation (principal); E87.29 Other acidosis; J96.11 Chronic respiratory failure with hypoxia; J96.12 Chronic respiratory failure with hypercapnia; J44.9 Chronic obstructive pulmonary disease, unspecified; Z85.3 Personal history of malignant neoplasm of breast; Z85.118 Personal history of other malignant neoplasm of bronchus and lung; F31.9 Bipolar disorder, unspecified; I50.9 Heart failure, unspecified; E66.9 Obesity, unspecified; Z68.32 Body mass index [BMI] 32.0-32.9, adult
CPT/HCPCS: 0241U-QW; 36415; 71045-TC-FY; 71275-TC; 80048; 80053; 82803; 82962; 83036; 83735; 83880; 84100; 84484; 85025; 87040; 93005; 93010; 97116-GP; 97162-GP; 99291; Q9967